=== PATIENT | female | born 1970 | race African-American/Black ===

== ENCOUNTER → 2018-07-02 16:38 | Outpatient (CLI) | payer OTHER, SELFPAY | DX: Z23 Encounter for immunization (principal) | CPT/HCPCS: 90471; 90682 ==

== ENCOUNTER → 2019-01-27 07:29 | Outpatient (CLI) | payer OTHER, SELFPAY ==
--- NOTE | 2019-01-27 | DI.MG.S_ITS ---
BILATERAL DIGITAL SCREENING MAMMOGRAM 3D/2D WITH CAD: 01/27/2019 CLINICAL: Routine screening. Comparison is made to exams dated: 01/24/2018 mammogram, 01/23/2017 mammogram, and 01/04/2016 mammogram - [facility]. There are scattered fibroglandular elements in both breasts. Current study was also evaluated with a Computer Aided Detection (CAD) system. No significant masses, calcifications, or other findings are seen in either breast. There has been no significant interval change. IMPRESSION: NEGATIVE There is no mammographic evidence of malignancy. A 1 year screening mammogram is recommended. This exam was interpreted at Station ID: [id number]. NOTE: For mammograms, a report in lay terms will be sent to the patient. Approximately 15% of breast malignancies will not be visualized mammographically. In the management of a palpable breast mass, a negative mammogram must not discourage biopsy of a clinically suspicious lesion. Electronically Signed By: Rito sheth/noemi:01/27/2019 08:54:34 letter sent: Normal Exam ACR BI-RADS Category 1: Negative 3341F
== END ==
PROVIDERS: PCP Family Medicine; Visit Provider Family Medicine
DX: Z12.31 Encounter for screening mammogram for malignant neoplasm of breast (principal)
CPT/HCPCS: 77063; 77067

== ENCOUNTER → 2019-02-18 06:46 | Outpatient (CLI) | payer OTHER, SELFPAY ==
[2019-02-18 09:05] LABS: Add Manual Diff / Slide Review NO; Basophils Absolute Auto 0 /uL (0-100); Basophils Percent Auto 0.3 % (0-2); Eosinophils Absolute Auto 100 /uL (0-450); Eosinophils Percent Auto 1.6 % (2-4); Hematocrit 41.9 % (36-46); Hemoglobin 13.9 g/dL (12.0-16.0); Lymphocytes Absolute Auto 1900 /uL (1100-4500); Lymphocytes Percent Auto 26.5 % (25-40); Mean Corpuscular HGB Conc 33.2 % (30-36); Mean Corpuscular Hemoglobin 29.9 PG (26-34); Monocytes Absolute Auto 500 /uL (0-900); Monocytes Percent Auto 7.1 % (3-14); Neutrophils Absolute Auto 4700 /uL (1500-7000); Neutrophils Percent Auto 64.5 % (50-75); Platelet Count 330 X10^3/uL (150-400); Red Blood Cell Count 4.66 X10^6/uL (4.0-5.2); Red Cell Distribution Width 13.3 % (11.6-14.8); White Blood Cell Count 7.3 X10^3/uL (4.5-11.0)
[2019-02-18 09:55] LABS: Alanine Aminotransferase 24 IU/L (9-52); Albumin 4.7 g/dL (3.5-5.0); Albumin Globulin Ratio 1.6 (1.0-2.8); Alkaline Phosphatase 66 U/L (38-126); Aspartate Aminotransferase 33 IU/L (14-36); BUN Creatinine Ratio 25.7 (6-22); Bilirubin Total 0.7 mg/dL (0.2-1.3); Blood Urea Nitrogen 18 mg/dL (7-17); Calcium 9.2 mg/dL (8.4-10.2); Carbon Dioxide 29 mmol/L (22-32); Chloride 97 mmol/L (98-107); Cholesterol 202 mg/dL (140-199); Estimated Glomerular Filt Rate > 60.0 mL/min (>60); Globulin 2.9 g/dL (1.7-4.1); Glucose 84 mg/dL (70-100); HDL Cholesterol 87 mg/dL (40-60); HEMOLYSIS < 15 (0-50); LDL Cholesterol Calculated 98 mg/dL (<100); Potassium 4.1 mmol/L (3.4-5.1); Sodium 136 mmol/L (137-145); Total Protein 7.6 g/dL (6.3-8.2); Triglycerides 83 mg/dL (35-150)
== END ==
PROVIDERS: PCP Family Medicine; Visit Provider Family Medicine
DX: E03.9 Hypothyroidism, unspecified (principal); I10 Essential (primary) hypertension
CPT/HCPCS: 36415; 80053; 80061; 84443; 85025

== ENCOUNTER 2019-03-10 08:20 | Emergency (ER) | payer OTHER, SELFPAY ==
[2019-03-10 08:28] VITALS: BP 121/58; PULSE 62; RESP 15; TEMP 36.8; O2SAT 98; BMI 27.4
[2019-03-10] MEDS: KETOROLAC 60 MG/2 ML VIAL IM (08:57)
--- NOTE | 2019-03-10 09:04 | ED_ITS ---
HPI - Skin/Abscess/Foreign Bdy General Chief complaint: Skin/Abscess/Foreign Body Stated complaint: states painful abcess in labia area Time Seen by Provider: 03/10/19 08:41 Source: patient and family () Mode of arrival: ambulatory Limitations: no limitations History of Present Illness HPI narrative: This is a 49-year-old female comes to the emergency department with complaint of pain and swelling on the left labia. Patient states 2 days ago she noticed a small sit while she was in the shower. She noticed there was like a little white head. She broke open and it drained a very small amount of bloody pus-like material. Patient states that it does seem a little bit smaller but is still hard and tender. Patient has not had any fevers, no nausea, no vomiting no GI or urinary symptoms. No abdominal pain. She has not had any symptoms like this in the past. She had a pelvic exam on the nd or 5 days ago and they did see a protrusion from her cervix which they suspect is a cervical polyp but she has follow-up with OBGYN. Related Data Home Medications Medication Instructions Recorded Confirmed MULTIVITAMIN/MINERALS (Thera M 1 tab PO QDAY #0 07/15/10 03/03/19 Plus Tablet) [CALCIUM] 2 PO QDAY #0 07/15/10 03/03/19 [VITAMIN B COMPLEX] 1 PO QDAY #0 07/15/10 03/03/19 acetaminophen [Tylenol Extra 500 mg PO Q4HP #0 12/13/11 03/03/19 Strength] Previous Rx's Medication Instructions Recorded estradiol 0.05 mg/24 hr weekly 0.05 mg TOPICAL Q7D@0900 #4 patch 07/23/18 transdermal patch bupropion HCl SR 200 mg tablet,12 200 mg PO BID #180 tab 01/15/19 hr sustained-release clonidine HCl 0.1 mg tablet 0.15 mg PO BID #90 tab 01/15/19 levothyroxine [Levoxyl] 0.075 mg PO Q DAY #90 tab 02/14/19 lisinopril 5 mg tablet 5 mg PO DAILY #30 tab 02/14/19 amoxicillin-pot clavulanate 1 tab PO Q12H #14 tab 03/10/19 [Augmentin] clindamycin HCl 300 mg PO QID 7 Days #28 cap 03/10/19 Allergies Allergy/AdvReac Type Severity Reaction Status Date / Time egg [EGG] Allergy Mild HIVES/WHITE Verified 03/10/19 08:57 ONLY NSAIDS (Non-Steroidal Allergy Mild Nausea Verified 03/10/19 08:57 Anti-Inflamma [NSAIDS (NON-STEROIDAL ANTI-INFLAMMA] oxycodone [OXYCODONE] Allergy Mild DECREASE Verified 03/10/19 08:57 HR AND DECREASE BP sulfamethoxazole Allergy Mild LIP Verified 03/10/19 08:57 [SULFAMETHOXAZOLE] SWELLING, FACIAL RASH, AND DERMATITIS tetracycline [TETRACYCLINE] Allergy Mild SEVERE Verified 03/10/19 08:57 SKIN SWELLING trimethoprim [TRIMETHOPRIM] Allergy Mild FACIAL Verified 03/10/19 08:57 RASH, LIP SWELLING, AND DERMATITIS Review of Systems Review of Systems ROS Unobtainable: All systems reviewed & are unremarkable except as noted in HPI and below Constitutional Denies chills and Denies fever(s) Gastrointestinal Gastrointestinal: Denies abdominal pain, Denies change in bowel habits, Denies diarrhea, Denies nausea and Denies vomiting Genitourinary Reports as per HPI, Denies abnormal vaginal bleeding, Denies hematuria, Denies urinary frequency, Reports genital lesions (Spot on left labia, drained a small amount of pus.), Denies dysuria, Denies pelvic pain, Denies flank pain, Denies urinary incontinence, Denies urinary urgency, Denies vaginal discharge and Denies vaginal odor Integumentary/Breasts Reports as per HPI [facility] Medical History Hypothyroidism (acquired) (Chronic) Asthma (Chronic) Depression (Chronic ~2012) Fatigue (Chronic ~2012) Mood swings (Chronic ~2012) Acne (Resolved) Hyperlipidemia (Resolved) Hypertension (Resolved) Impaired glucose tolerance (Resolved) (vaginal after ) (Resolved) Surgical History S/P gastric bypass (Resolved 12/22/09) History of section (Resolved 1990) History of hysterectomy (Resolved 12/15/11) History of laparoscopic cholecystectomy (Resolved 1996) History of myomectomy (Resolved 01/23/06) History of myomectomy (Resolved 07/20/10) History of right breast biopsy (Resolved 1989) Family History (Updated 06/13/18 @ 10:08 by Kerrie Hopkins) Father Diabetes mellitus Brain aneurysm [place] (myocardial infarction) Mother Asthma Obesity Grandfather Hypertension Hx of CABG Daughter Asthma Hayfever Daughter Asthma Hayfever Social History marital status: number of children: 2 household members: spouse and children lives independently: Yes caregiver/support person: No housing: house occupational status: employed seatbelt use: always Smoking Status: Never smoker alcohol intake: current substance use type: does not use Family History Father Diabetes mellitus Brain aneurysm [place] (myocardial infarction) Mother Asthma Obesity Grandfather Hypertension Hx of CABG Daughter Asthma Hayfever Daughter Asthma Hayfever Social History marital status: number of children: 2 household members: spouse and children lives independently: Yes caregiver/support person: No housing: house occupational status: employed seatbelt use: always Smoking Status: Never smoker alcohol intake: current substance use type: does not use Exam Narrative Exam Narrative: GENERAL: Alert and oriented x three, well-nourished, well- appearing female in mild distress. HEENT: Head normocephalic, atraumatic, EOMI, pupils reactive, face symmetric, moist mucous membranes NECK: Supple, full range of motion ABDOMEN: Soft, nontender. Normoactive bowel sounds all 4 quadrants. No guarding or rebound, rigidity, no mass : No CVA tenderness. Female: external vaginal exam shows swelling of the left labia, there is some induration in the lower half, the area slightly tender to touch. There is very small area that has erythema, and there is a small open spot with scant purulent drainage, no vaginal bleeding, no adnexal tenderness/mass. EXTREMITIES: Normal range of motion, no clubbing or edema. Neurovascularly intact NEUROLOGICAL: Cranial nerves II through XII grossly intact. Moving all extremities SKIN: Warm, dry, no petechiae, no rashes or lesions. Initial Vital Signs Initial Vital Signs: Vital Signs Temperature 98.2 F 03/10/19 08:28 Pulse Rate 62 03/10/19 08:28 Respiratory Rate 15 03/10/19 08:28 Blood Pressure 121/58 L 03/10/19 08:28 Pulse Oximetry 98 03/10/19 08:28 Procedures Abscess I/D Site: bartholin's gland (Left labia) Local Anesthetic: lidocaine 1% Amount of anesthesia used (mL): 2 Technique: incised with #11 blade Amount of fluid expressed (mL): 1 Irrigation: Yes Packing used?: none Course Orders Ordered: ED Orders 03/10/19 09:32 Wound Culture and Gram Stain Stat Discontinued Medications Ketorolac Tromethamine (Toradol) 60 mg IM NOW ONE Stop: 03/10/19 08:51 Last Admin: 03/10/19 08:57 Dose: 60 mg Vital Signs - 8 hr 03/10/19 08:28 03/10/19 09:45 Temperature 98.2 F Pulse Rate 62 70 Respiratory Rate 15 14 Blood Pressure 121/58 L Blood Pressure [Left Arm] 106/70 Pulse Oximetry 98 98 MDM - Skin/Abscess/Foreign Bdy MDM Narrative Medical decision making narrative: Patient appears to likely have a gland gland cyst does become infected although potentially could be a small abscess from another source. Patient does have a small wound but is not actively draining and does not easily drain any fluid. As quite small. Discussed with patient I would recommend an I and D just to make sure that there is a throat for any further purulence fluid to drain. It also treat patient with antibiotics. She is comfortable with this plan. Plan to do a dose of Toradol, she states that her allergy to NSAIDs that she feels a little nauseated she is fine with that. She has an ice pack in place. Verbal consent was given. Patient tolerated procedure well. She has a very small amount of purulent fluid out. I opened the area draining with a X incision. Culture was obtained and sent. Discharge Plan Departure Patient Disposition: Home Clinical Impression: Abscess of left genital labia Discharge Date/Time: 03/10/19 09:48 Interventions: ED Discharge Assessment Last Done: 03/10/19 09:47 Instructions: Vulvar Abscess Activity Restrictions/Additional Instructions: Follow-up in the next 3-5 days for recheck either with primary care or java software architect. Call for an appointment. Take antibiotics until they are completely gone. Use warm compresses to the affected area or warm baths 4 times daily. You may take ibuprofen up to 800 mg every 8 hours as tolerated, you may also take Tylenol up to a 1000 mg every 8 hours. Return to the emergency department for fevers greater than 100.4 F, worsening swelling, worsening pain, increasing amounts of purulent drainage, persistent vomiting, abdominal pain or other new or concerning symptoms. Prescriptions: New clindamycin HCl 300 mg capsule 300 mg PO QID 7 Days Qty: 28 RF: 0 amoxicillin-pot clavulanate [Augmentin] 875-125 mg tablet 1 tab PO Q12H Qty: 14 RF: 0 No Action MULTIVITAMIN/MINERALS (Thera M Plus Tablet) 1 tab PO QDAY Qty: 0 RF: 0 [VITAMIN B COMPLEX] 1 PO QDAY Qty: 0 RF: 0 [CALCIUM] 2 PO QDAY Qty: 0 RF: 0 acetaminophen [Tylenol Extra Strength] 500 MG tablet 500 mg PO Q4HP Qty: 0 RF: 0 estradiol [Climara] 0.05 mg/24 hr patch weekly 0.05 mg Topical Q7D@0900 Qty: 4 RF: 11 bupropion HCl 200 mg tablet sustained-release 12 hr 200 mg PO BID Qty: 180 RF: 0 clonidine HCl 0.1 mg tablet 0.15 mg PO BID Qty: 90 RF: 1 levothyroxine [Levoxyl] 75 mcg tablet 0.075 mg PO Q DAY Qty: 90 RF: 2 lisinopril 5 mg tablet 5 mg PO DAILY Qty: 30 RF: 2 Referrals: Sudha Gibson MD [Primary Care Provider] -
[2019-03-10 09:45] VITALS: BP 106/70; PULSE 70; RESP 14; O2SAT 98
== END 2019-03-10 09:48 | disposition home or self-care (01) ==
PROVIDERS: Emergency Provider Emergency Medicine; PCP Family Medicine
DX: N76.4 Abscess of vulva (principal)
CPT/HCPCS: 56405; 87070; 87147; 87205; 96372; 99282; 99283; J1885

== ENCOUNTER 2019-05-29 06:46 | Day surgery (SDC) | payer OTHER, SELFPAY ==
[2019-05-13 12:22] VITALS: BMI 27.6
[2019-05-29] VITALS (7 sets, daily range): BP systolic 112–130; BP diastolic 57–76; PULSE 59–79; RESP 15–19; TEMP 36.1–36.6; O2SAT 97–100; BMI 27.6
--- NOTE | 2019-05-29 | PATH_ITS ---
[facility] Accession Number: [id number] . 01 Material submitted: . cervix - CERVICAL MASS . 02 Diagnosis: Cervical Mass, Not Otherwise Specified: Fibroepithelial tissue fragments (1.4 and 2.4 cm in greatest dimension). Tissue fragments demonstrate prominent vessels, suggestive of endocervical polyp, if clinical and imaging findings are concordant. Negative for glandular dysplasia and malignancy. I06/02/2019 . 02 Electronically signed: . Lexus Sales MD, Pathologist NPI- [id number] . 01 Gross description: . Received in formalin, labeled cervical mass, are two pieces of daniel-pink rubbery partially membranous tissue (piece #1-1.4 x 1.0 x 0.5 cm; piece #2-2.4 x 1.2 x 0.5 cm). The apparent resection margins are inked blue. Piece #1 is serially sectioned and entirely submitted in cassette A1, and piece #2 is trisected and entirely submitted in cassette A2. ([id number]) /MRV . 02 Pathologist provided ICD-10: N84.1 . 02 CPT . 255885 Specimen Comment: A duplicate report has been generated due to demographic updates. Performed at: 01 [facility] [address] [facility], [place], [place] [id number] MD Americo Underwood MD Phone: [phone] Performed at: 02 [facility] [address] [place], [place] [id number] MD Kaleigh Mendez MD Phone: [phone]
--- NOTE | 2019-05-29 06:53 | PM.HP.1 ---
History of Present Illness Date Patient Seen: 05/29/19 Time Patient Seen: 06:54 Chief complaint: 80362 Narrative: Patient is a 49-year-old 2 para 2 with a cervical mass She is status post laparoscopic supracervical hysterectomy Patient History Family & Social History Social History: household members spouse,children lives independently Yes caregiver/support person No Tobacco & Substance use: Smoking Status Never smoker alcohol intake current Substance Use Type does not use Meds Home Medications Medication Instructions Recorded Confirmed Type MULTIVITAMIN/MINERALS (Thera M 1 tab PO QDAY #0 07/15/10 05/13/19 History Plus Tablet) [VITAMIN B COMPLEX] 1 tab PO QDAY #0 07/15/10 05/13/19 History acetaminophen [Tylenol Extra 500 mg PO Q4HP #0 12/13/11 05/13/19 History Strength] levothyroxine [Levoxyl] 0.075 mg PO Q DAY #90 tab 02/14/19 05/13/19 Rx estradiol 0.05 mg/24 hr weekly 0.05 mg TOPICAL .biweekly #8 patch 03/24/19 05/13/19 Rx transdermal patch clonidine HCl 0.1 mg tablet 0.15 mg PO BID #90 tab 04/10/19 05/13/19 Rx bupropion HCl SR 200 mg tablet,12 200 mg PO BID #180 tab 05/09/19 05/13/19 Rx hr sustained-release lisinopril 5 mg tablet 5 mg PO DAILY #30 tab 05/09/19 05/13/19 Rx Allergies Allergy/AdvReac Type Severity Reaction Status Date / Time egg [EGG] Allergy Mild HIVES/WHITE Verified 04/22/19 11:02 ONLY NSAIDS (Non-Steroidal Allergy Mild Nausea Verified 04/22/19 11:02 Anti-Inflamma [NSAIDS (NON-STEROIDAL ANTI-INFLAMMA] oxycodone [OXYCODONE] Allergy Mild DECREASE Verified 04/22/19 11:02 HR AND DECREASE BP sulfamethoxazole Allergy Mild LIP Verified 04/22/19 11:02 [SULFAMETHOXAZOLE] SWELLING, FACIAL RASH, AND DERMATITIS tetracycline [TETRACYCLINE] Allergy Mild SEVERE Verified 04/22/19 11:02 SKIN SWELLING trimethoprim [TRIMETHOPRIM] Allergy Mild FACIAL Verified 04/22/19 11:02 RASH, LIP SWELLING, AND DERMATITIS Exam Vital Signs (past 8 hours): HEENT: No thyromegaly, no anterior cervical or supraclavicular lymphadenopathy. Lungs:Clear to auscultation bilaterally, no wheezes. Cardiovascular: Regular rate and rhythm, no murmurs, rubs, or gallops. Abdomen: Well-healed laparoscopy scars. No hepatosplenomegaly. No masses palpable. External genitalia: Normal Vagina: Normal Cervix: 2-1/2 by 3 cm mass protruding from the cervical os Bimanual exam: No masses or tenderness Rectal: No masses. Assessment & Plan Assessment & Plan narrative: Assessment: 49-year-old 2 para 2 with cervical mass Plan: Resection of cervical mass The risks, benefits, and alternatives to the procedure were explained to the patient. The risks including bleeding and infection. She understands these risks and agrees to proceed. A full par Q was held and consent form was signed Time Spent With Patient Time with patient: less than 15 minutes
--- NOTE | 2019-05-29 06:56 | PM.PREOP ---
Pre-operative Note Interval Note History & Physical reviewed/Exam performed by Physician: Yes Changes to H&P: No
--- NOTE | 2019-05-29 07:28 | SUR.OPER ---
Lithotomy on padded OR bed, head on pillow, arms secured on padded arm boards at <90 degrees abduction. Legs secured in padded yellow fins stirrups.
[2019-05-29] MEDS: LACTATED RINGERS 1,000 ML 42 ML IV (07:37)
--- NOTE | 2019-06-12 12:37 | PM.GYNOP.1 ---
Operative Date/Time/Diagnoses Date of procedure: 05/29/19 Time of procedure: 09:00 Pre-op diagnosis: Cervical mass Post-op diagnosis: same Procedure & Clinicians Procedure: Procedures Operation Date: 05/29/19 07:45 Actual Procedures Side Surgeon p Hysteroscopic assisted resection of cervical mass Not Applicable Kortney Lewis MD Indications: Cervical mass Surgeon: Kortney Lewis Anesthesia Type: General (LMA) Operative Notes Findings: 3 cm by 2-1/2 cm mass originating from the endocervical canal Closure Type: not applicable Specimen(s): other (Cervical mass) Estimated blood loss (mL): 5 Blood products transfused: none Procedure in detail: After informed consent was obtained, the patient was taken to the operating room where she was placed in the dorsal supine position. After adequate LMA general seizure was achieved, she was placed in the dorsal lithotomy position, and prepped and draped in the usual sterile fashion. A time-out was performed. A bivalve speculum was placed into the vagina and the anterior lip of the cervix grasped with a single-tooth tenaculum. The hysteroscope passed into the endocervical canal. The cervix was approximately 3.5 cm long. The mass was originating from the left sidewall of the cervix. Using a Bovie, the mass was excised down to the base. The base of the mass was cauterized for hemostasis. The instruments were removed from the cervix. The single-tooth tenaculum was removed from the anterior lip of the cervix. The bivalve speculum was removed from the vagina. Sponge, lap, and instrument counts were correct x2. The patient tolerated the procedure well, and was taken to PACU in stable condition. Complications: none Post-operative Condition: stable Disposition: PACU Plan for aftercare: Home after recovery
== END 2019-05-29 09:19 | disposition home or self-care (01) ==
PROVIDERS: PCP Family Medicine; Visit Provider Obstetrics & Gynecology
PROC: 0UDB8ZZ Extraction of Endometrium, Via Natural or Artificial Opening Endoscopic (ICD-10-PCS; CPT 58558; principal; 2019-05-29 07:45)
DX: N88.8 Other specified noninflammatory disorders of cervix uteri (principal); I10 Essential (primary) hypertension
CPT/HCPCS: 58558; J1100; J2250; J2405; J2704; J3010

== ENCOUNTER → 2019-07-08 14:09 | Outpatient (CLI) | payer OTHER, SELFPAY | PROVIDERS: PCP Family Medicine | DX: Z23 Encounter for immunization (principal) | CPT/HCPCS: 90471; 90682 ==

== ENCOUNTER → 2019-07-15 12:09 | Outpatient (CLI) | payer OTHER, SELFPAY ==
[2019-07-15 13:03] LABS: Influenza A and B by PCR Rapid Negative (Negative)
== END ==
PROVIDERS: PCP Family Medicine; Visit Provider Nurse Practitioner Family
DX: R52 Pain, unspecified (principal)
CPT/HCPCS: 87400; 87502

== ENCOUNTER → 2020-03-23 11:04 | Outpatient (CLI) | payer OTHER, SELFPAY ==
--- NOTE | 2020-03-23 | DI.MG.S_ITS ---
BILATERAL DIGITAL SCREENING MAMMOGRAM 3D/2D WITH CAD: 03/23/2020 CLINICAL: Routine screening. Family history of breast cancer. Comparison is made to exams dated: 01/27/2019 mammogram, 01/24/2018 mammogram, and 01/23/2017 mammogram - [facility]. There are scattered fibroglandular elements in both breasts. Current study was also evaluated with a Computer Aided Detection (CAD) system. No significant masses, calcifications, or other findings are seen in either breast. There has been no significant interval change. IMPRESSION: NEGATIVE There is no mammographic evidence of malignancy. A 1 year screening mammogram is recommended. This exam was interpreted at Station ID: [id number]. NOTE: For mammograms, a report in lay terms will be sent to the patient. Approximately 15% of breast malignancies will not be visualized mammographically. In the management of a palpable breast mass, a negative mammogram must not discourage biopsy of a clinically suspicious lesion. Electronically Signed By: Rito robbins/noemi:03/23/2020 17:18:50 letter sent: Normal Exam ACR BI-RADS Category 1: Negative 3341F
== END ==
PROVIDERS: PCP Family Medicine; Referring Provider Family Medicine; Visit Provider Family Medicine
DX: Z12.31 Encounter for screening mammogram for malignant neoplasm of breast (principal); Z80.3 Family history of malignant neoplasm of breast
CPT/HCPCS: 77063; 77067

== ENCOUNTER → 2020-04-14 07:24 | Outpatient (CLI) | payer OTHER, SELFPAY ==
[2020-04-14 08:27] LABS: Add Manual Diff / Slide Review NO; Basophils Absolute Auto 0 /uL (0-100); Basophils Percent Auto 0.5 % (0-2); Eosinophils Absolute Auto 100 /uL (0-450); Eosinophils Percent Auto 1.8 % (2-4); Hematocrit 38.7 % (36-46); Lymphocytes Absolute Auto 2100 /uL (1100-4500); Lymphocytes Percent Auto 29.4 % (25-40); Mean Corpuscular HGB Conc 33.7 % (30-36); Mean Corpuscular Hemoglobin 30.3 PG (26-34); Mean Corpuscular Volume 89.9 fL (80-100); Monocytes Absolute Auto 600 /uL (0-900); Neutrophils Absolute Auto 4300 /uL (1500-7000); Neutrophils Percent Auto 59.3 % (50-75); Platelet Count 305 X10^3/uL (150-400); Red Cell Distribution Width 13.4 % (11.6-14.8); White Blood Cell Count 7.2 X10^3/uL (4.5-11.0)
[2020-04-14 08:47] LABS: Alanine Aminotransferase 22 IU/L (<35); Albumin 4.5 g/dL (3.5-5.0); Albumin Globulin Ratio 1.6 (1.0-2.8); Alkaline Phosphatase 74 U/L (38-126); Aspartate Aminotransferase 34 IU/L (14-36); BUN Creatinine Ratio 20.6 (6-22); Bilirubin Total 0.9 mg/dL (0.2-1.3); Blood Urea Nitrogen 14 mg/dL (7-17); Calcium 9.5 mg/dL (8.4-10.2); Carbon Dioxide 30 mmol/L (22-32); Chloride 101 mmol/L (98-107); Cholesterol 205 mg/dL (140-199); Estimated Glomerular Filt Rate > 60.0 mL/min (>60); Globulin 2.8 g/dL (1.7-4.1); Glucose 90 mg/dL (70-100); HDL Cholesterol 97 mg/dL (40-60); HEMOLYSIS < 15 (0-50); LDL Cholesterol Calculated 92 mg/dL (<100); Potassium 4.6 mmol/L (3.4-5.1); Sodium 136 mmol/L (137-145); Total Protein 7.3 g/dL (6.3-8.2); Triglycerides 78 mg/dL (35-150)
[2020-04-14 09:18] LABS: Thyroid Stimulating Hormone 1.51 uIU/mL (0.47-4.68)
== END ==
PROVIDERS: PCP Family Medicine; Referring Provider Family Medicine; Visit Provider Family Medicine
DX: E03.9 Hypothyroidism, unspecified (principal); I10 Essential (primary) hypertension; Z98.84 Bariatric surgery status
CPT/HCPCS: 36415; 80053; 80061; 84443; 85025

== ENCOUNTER 2020-08-17 00:24 | Emergency (ER) | payer OTHER, SELFPAY ==
[2020-08-17 00:31] VITALS: BP 198/96; PULSE 72; RESP 18; TEMP 36.3; O2SAT 99
--- NOTE | 2020-08-17 00:34 | ED.SKABFB ---
HPI - Skin/Abscess/Foreign Bdy General Chief complaint: Skin/Abscess/Foreign Body Stated complaint: left side of face is swollen Time Seen by Provider: 08/17/20 00:33 Source: patient Mode of arrival: Ambulatory Limitations: no limitations History of Present Illness HPI narrative: Patient is a 50-year-old female here for evaluation of a rash and burning and ear pain on the left side. States that her ear pain started about 3 days ago. The rash started yesterday. No fevers. Did have a sore throat yesterday but none today. She does not have any vision changes. Does not have pain to her left eye but does have some itching around the left eye. No problems swallowing. No problems breathing. Has not tried anything for her symptoms prior to arrival. Related Data Home Medications Medication Instructions Recorded Confirmed MULTIVITAMIN/MINERALS (Thera M 1 tab PO QDAY #0 07/15/10 04/30/20 Plus Tablet) [VITAMIN B COMPLEX] 1 tab PO QDAY #0 07/15/10 04/30/20 acetaminophen [Tylenol Extra 500 mg PO Q4HP #0 12/13/11 04/30/20 Strength] wiypdjloma-BW-dwakbikzepnmw 6.25 cap PO 07/15/19 04/30/20 mg-15 mg-325 mg capsule phenylephrine 5 cap PO 07/15/19 04/30/20 mg-dextromethorphan 10 mg-acetaminophen 325 mg capsule Previous Rx's Medication Instructions Recorded amoxicillin 875 mg-potassium 1 tab PO BID #20 tab 07/15/19 clavulanate 125 mg tablet fluconazole 150 mg tablet 150 mg PO Q3D #2 tab 10/28/19 estradiol 0.05 mg/24 hr semiweekly See Rx Instructions .ROUTE 03/11/20 transdermal patch .COMPLEX #8 each bupropion HCl 200 mg tablet,12 hr See Rx Instructions .ROUTE 05/11/20 sustained-release .COMPLEX #60 tab clonidine HCl 0.1 mg tablet 0.15 mg PO BID #90 tab 07/12/20 levothyroxine 75 mcg tablet See Rx Instructions .ROUTE 08/06/20 .COMPLEX #90 tab lisinopril 5 mg tablet See Rx Instructions .ROUTE 08/06/20 .COMPLEX #90 tab acyclovir 800 mg PO 5XD 10 Days #50 tab 08/17/20 prednisone 60 mg PO DAILY 5 Days #15 tab 08/17/20 valacyclovir 1,000 mg PO TID 10 Days #30 tab 08/17/20 Allergies Allergy/AdvReac Type Severity Reaction Status Date / Time egg [EGG] Allergy Mild HIVES/WHITE Verified 04/30/20 09:12 ONLY NSAIDS (Non-Steroidal Allergy Mild Nausea Verified 04/30/20 09:12 Anti-Inflamma [NSAIDS (NON-STEROIDAL ANTI-INFLAMMA] oxycodone [OXYCODONE] Allergy Mild DECREASE Verified 04/30/20 09:12 HR AND DECREASE BP sulfamethoxazole Allergy Mild LIP Verified 04/30/20 09:12 [SULFAMETHOXAZOLE] SWELLING, FACIAL RASH, AND DERMATITIS tetracycline [TETRACYCLINE] Allergy Mild SEVERE Verified 04/30/20 09:12 SKIN SWELLING trimethoprim [TRIMETHOPRIM] Allergy Mild FACIAL Verified 04/30/20 09:12 RASH, LIP SWELLING, AND DERMATITIS Review of Systems Constitutional Constitutional: Denies chills, Denies fever(s) and Denies headache(s) Eyes Eyes: Denies blurry vision, Denies change in vision, Denies diplopia, Denies eye discharge, Denies dry eyes and Denies eye pain ENT Ears, Nose, Mouth, and Throat: Denies vertigo, Denies dizziness, Reports otalgia, Reports facial pain, Denies headache(s), Denies mouth lesions, Denies nasal obstruction, Denies nose pain, Reports sore throat (Yesterday not today) and Denies throat swelling Cardiovascular Cardiovascular: Denies chest pain and Denies dyspnea Respiratory Respiratory: Denies dyspnea Gastrointestinal Gastrointestinal: Denies abdominal pain, Denies nausea and Denies vomiting Genitourinary Genitourinary: Denies dysuria Genitourinary: Denies dysuria Musculoskeletal Musculoskeletal: Denies arthralgias and Denies myalgias Integumentary/Breasts Skin/Breast: Reports pruritus, Reports lesions, Reports rash and Reports sores Neurologic Neurologic: Denies behavioral changes, Denies confusion, Denies vertigo, Denies dizziness and Denies headache(s) Psychiatric Psychiatric: Denies behavioral changes, Denies confusion and Denies depression Hematologic/Lymphatic Hematologic/Lymphatic: Denies easy bleeding and Denies easy bruising Allergic/Immunologic Allergic/Immunologic: Denies throat swelling Patient History Medical History Acne (Resolved) Asthma (Chronic) Depression (Chronic ~2012) Fatigue (Chronic ~2012) Hyperlipidemia (Resolved) Hypertension (Resolved) Hypothyroidism (acquired) (Chronic) Impaired glucose tolerance (Resolved) Mood swings (Chronic ~2012) (vaginal after ) (Resolved) Surgical History (Updated 06/12/19 @ 09:30 by Meg Thapa MA) History of section (Resolved 1990) History of hysterectomy (Resolved 12/15/11) History of laparoscopic cholecystectomy (Resolved 1996) History of myomectomy (Resolved 01/23/06) History of myomectomy (Resolved 07/20/10) History of right breast biopsy (Resolved 1989) S/P cervical polypectomy (Acute ~05/29/19) S/P gastric bypass (Resolved 12/22/09) Family History Father Diabetes mellitus Brain aneurysm ID (myocardial infarction) Mother Asthma Obesity Grandfather Hypertension Hx of CABG Daughter Asthma Hayfever Daughter Asthma Hayfever Social History marital status: number of children: 2 household members: spouse and children lives independently: Yes caregiver/support person: No housing: house occupational status: employed seatbelt use: always Smoking Status: Never smoker alcohol intake: current substance use type: does not use Smoking Status: Never smoker Substance Use Type: does not use Exam Initial Vital Signs Initial Vital Signs: Vital Signs Temperature 97.3 F L 08/17/20 00:31 Pulse Rate 72 08/17/20 00:31 Respiratory Rate 18 08/17/20 00:31 Blood Pressure 198/96 H 08/17/20 00:31 Pulse Oximetry 99 08/17/20 00:31 Const General: cooperative, comfortable and well developed Limitations: mental status not altered HENMT Head: normal to inspection and normocephalic Ears: TM normal on the right and EAC abnormal erythema on the left, edema on the left and EAC tenderness on the left Nose: external nose normal Face and sinus: other (Lesions) Mouth: oral mucosae normal and lip normal Teeth and gingiva: dentition normal Throat: posterior oropharynx normal Eyes Conjunctivae: conjunctivae normal Sclera: sclerae normal Cornea: corneas normal and fluorescein used Pupils: PERRL EOM: EOM intact bilaterally Resp Effort & Inspection: normal respiratory effort Cardio Rate: regular rate Skin Other: Patient has pointing lesions along the left nasal labial fold and along the upper lip. She also has not along the lateral aspect of the left eye. Also has larger grouped lesions along the hairline just anterior to left ear. Also has red left external auditory canal. No specific vesicles seen. No pustules seen. Minimal surrounding erythema. Neuro General: patient alert and patient awake Cognition: normal cognition Speech: speech normal Extrem General: capillary refill normal Psych Appearance: grossly normal and well kempt Course Orders Ordered: Discontinued Medications Acyclovir (Zovirax) 800 mg PO NOW ONE Stop: 08/17/20 01:28 Fluorescein Sodium (Ful-Naz) 1 mg EYE-BOTH NOW ONE Stop: 08/17/20 00:41 Prednisone (Deltasone) 60 mg PO NOW ONE Stop: 08/17/20 01:12 Valacyclovir HCl (Valtrex) 1,000 mg PO NOW ONE Stop: 08/17/20 01:12 Vital Signs Vital signs: Vital Signs - 8 hr 08/17/20 00:31 Temperature 97.3 F L Pulse Rate 72 Respiratory Rate 18 Blood Pressure 198/96 H Pulse Oximetry 99 MDM - Skin/Abscess/Foreign Bdy MDM Narrative Medical decision making narrative: Patient does have lesions on the left side of her face that are somewhat concerning for zoster despite not having specific vesicles there are some punctate areas that appear to be areas where there were vesicles that have since ruptured. She has a red left external auditory canal. There is minimal swelling in the visualized portion of the tympanic membrane does not appear to have any vesicles on it. Floor seen of the left high does not show any signs of dendrites. There are no lesions specifically on the nose. She has no facial asymmetry. There is some concern for Miryam garcia syndrome that she does not specifically need to try and specifically the facial paralysis. Will treat the patient as if it is zoster. She was given 1st dose of steroids and antivirals here in the ER. Will send home with prescription for the remainder. She is given return precautions. She expressed understanding and agreement. Discharge Plan Departure Patient Disposition: Home Clinical Impression: Shingles Qualifiers: Herpes zoster complications: unspecified herpes zoster complication Qualified Code(s): B02.8 - Zoster with other complications Discharge Date/Time: 08/17/20 01:37 Instructions: DI for Shingles, Recombinant Zoster (Shingles) Vaccine (RZV) Activity Restrictions/Additional Instructions: Take the medications as directed. Recommend you contact your primary provider for follow-up. Return to the emergency department for any new or worsening symptoms Prescriptions: New valacyclovir 1 gram tablet 1,000 mg PO TID 10 Days Qty: 30 RF: 0 prednisone 20 mg tablet 60 mg PO DAILY 5 Days Qty: 15 RF: 0 acyclovir 800 mg tablet 800 mg PO 5XD 10 Days Qty: 50 RF: 0 No Action MULTIVITAMIN/MINERALS (Thera M Plus Tablet) 1 tab PO QDAY Qty: 0 RF: 0 [VITAMIN B COMPLEX] 1 tab PO QDAY Qty: 0 RF: 0 acetaminophen [Tylenol Extra Strength] 500 MG tablet 500 mg PO Q4HP Qty: 0 RF: 0 fluconazole 150 mg tablet 150 mg PO Q3D Qty: 2 RF: 0 estradiol [Katrin] 0.05 mg/24 hr patch semiweekly See Rx Instructions .ROUTE .COMPLEX Qty: 8 RF: 10 bupropion HCl 200 mg tablet sustained-release 12 hr See Rx Instructions .ROUTE .COMPLEX Qty: 60 RF: 2 clonidine HCl 0.1 mg tablet 0.15 mg PO BID Qty: 90 RF: 1 levothyroxine 75 mcg tablet See Rx Instructions .ROUTE .COMPLEX Qty: 90 RF: 0 lisinopril 5 mg tablet See Rx Instructions .ROUTE .COMPLEX Qty: 90 RF: 0 Vicks DayQuil Cold-Flu Relief 5-10-325 mg capsule PO RF: 0 Vicks NyQuil Cold/Flu Liquicap 6.25-15-325 mg capsule PO RF: 0 amoxicillin-pot clavulanate 875-125 mg tablet 1 tab PO BID Qty: 20 RF: 0 Referrals: Sudha Gibson MD [Primary Care Provider] - Stand Alone Forms: Work Release Note
[2020-08-17] MEDS: FLUORESCEIN 1 MG STRIP EYE-BOTH (01:32)
[2020-08-17] MEDS: predniSONE 20 MG TABLET 60 MG PO (01:32)
[2020-08-17] MEDS: ACYCLOVIR 200 MG CAPSULE 800 MG PO (01:32)
[2020-08-17 01:37] VITALS: BP 185/88; PULSE 60; RESP 15; O2SAT 99
== END 2020-08-17 01:37 | disposition home or self-care (01) ==
PROVIDERS: Emergency Provider Emergency Medicine; PCP Family Medicine
DX: B02.8 Zoster with other complications (principal); H92.02 Otalgia, left ear
CPT/HCPCS: 99283

== ENCOUNTER → 2020-09-07 13:15 | Outpatient (CLI) | payer OTHER, SELFPAY | PROVIDERS: PCP Family Medicine; Referring Provider Internal Medicine; Visit Provider Internal Medicine | DX: Z23 Encounter for immunization (principal) | CPT/HCPCS: 90471; 90682 ==

== ENCOUNTER → 2020-10-29 11:56 | Outpatient (CLI) | payer OTHER, SELFPAY ==
[2020-10-29] MEDS: COVID-19 VACC(MODERNA-1)/PF 100 MCG/0.5 ML VIAL IM (11:59)
== END ==
PROVIDERS: PCP Family Medicine; Visit Provider Internal Medicine
DX: Z23 Encounter for immunization (principal)
CPT/HCPCS: 0011A; 91301

== ENCOUNTER → 2020-11-26 11:57 | Outpatient (CLI) | payer OTHER, SELFPAY ==
[2020-11-26] MEDS: COVID-19 VACC #2, MRNA(MOD) 100 MCG/0.5 ML VIAL IM (11:59)
== END ==
PROVIDERS: PCP Family Medicine; Visit Provider Internal Medicine
DX: Z23 Encounter for immunization (principal)
CPT/HCPCS: 0012A; 91301

== ENCOUNTER 2021-03-11 17:16 | Observation (INO) | payer OTHER, SELFPAY ==
[2021-03-11] VITALS (16 sets, daily range): BP systolic 141–200; BP diastolic 73–105; PULSE 58–74; RESP 16–18; TEMP 36.1–36.7; O2SAT 96–100; BMI 28.3
--- NOTE | 2021-03-11 17:24 | DI.CT.S_ITS ---
PROCEDURE: CT HEAD/BRAIN WO CON INDICATIONS: visual disturbance, headache TECHNIQUE: Noncontrast 4.5 mm thick angled axial sections acquired from the foramen magnum to the vertex, with coronal and sagittal reformats. For radiation dose reduction, the following was used: automated exposure control, adjustment of mA and/or kV according to patient size. COMPARISON: None. FINDINGS: Image quality: Excellent. CSF spaces: Basal cisterns are patent. No extra-axial fluid collections. Ventricles are normal in size and shape. Brain: No midline shift. No intracranial masses or hemorrhage. Pham-white matter interface is normal. Skull and face: Calvarium and visualized facial bones are intact, without suspicious lesions. Sinuses: There is a mucous retention cyst seen along the posterior aspect of the left maxillary sinus, as on series 3, image 2. Visualized sinuses and mastoids are otherwise clear. IMPRESSION: No imaging explanation is found for this patient's presenting symptoms. If it would be helpful for clinical management decision making, please consider a dedicated brain MRI (without and with contrast) for further evaluation (assuming that there is no contraindication). Dictated by: Damaso Wakefield M.D. on 03/11/2021 at 17:12 Approved by: Damaso Wakefield M.D. on 03/11/2021 at 17:14
[2021-03-11 17:48] LABS: Add Manual Diff / Slide Review NO; Basophils Absolute Auto 0 /uL (0-100); Basophils Percent Auto 0.2 % (0-2); Eosinophils Absolute Auto 100 /uL (0-450); Eosinophils Percent Auto 1.2 % (2-4); Hematocrit 38.3 % (36-46); Hemoglobin 12.4 g/dL (12.0-16.0); Lymphocytes Absolute Auto 2900 /uL (1100-4500); Lymphocytes Percent Auto 26.4 % (25-40); Mean Corpuscular HGB Conc 32.5 % (30-36); Mean Corpuscular Hemoglobin 28.4 PG (26-34); Mean Corpuscular Volume 87.5 fL (80-100); Monocytes Absolute Auto 800 /uL (0-900); Monocytes Percent Auto 7.8 % (3-14); Neutrophils Absolute Auto 7000 /uL (1500-7000); Neutrophils Percent Auto 64.4 % (50-75); Platelet Count 375 X10^3/uL (150-400); Red Blood Cell Count 4.37 X10^6/uL (4.0-5.2); Red Cell Distribution Width 13.9 % (11.6-14.8); White Blood Cell Count 10.9 X10^3/uL (4.5-11.0)
[2021-03-11 17:56] LABS: HEMOLYSIS < 15 (0-50)
[2021-03-11 17:58] LABS: INR 1.2 (0.9-1.3); Prothrombin Time 13.1 SECONDS (10.1-12.7)
[2021-03-11 18:00] LABS: PTT Partial Thromboplastin Tim 33 SECONDS (26.4-36.2)
[2021-03-11 18:02] LABS: Alanine Aminotransferase 27 IU/L (<35); Albumin 4.7 g/dL (3.5-5.0); Albumin Globulin Ratio 1.5 (1.0-2.8); Alkaline Phosphatase 96 U/L (38-126); Aspartate Aminotransferase 48 IU/L (14-36); BUN Creatinine Ratio 19.3 (6-22); Bilirubin Total 0.4 mg/dL (0.2-1.3); Blood Urea Nitrogen 16 mg/dL (7-17); Calcium 9.1 mg/dL (8.4-10.2); Carbon Dioxide 27 mmol/L (22-32); Chloride 102 mmol/L (98-107); Creatine Kinase 384 U/L (30-135); Estimated Glomerular Filt Rate > 60.0 mL/min (>60); Globulin 3.1 g/dL (1.7-4.1); Glucose 91 mg/dL (70-100); Sodium 137 mmol/L (137-145); Total Protein 7.8 g/dL (6.3-8.2)
[2021-03-11] MEDS: SODIUM CHLORIDE 0.9% 1,000 ML 150 ML IV (18:02)
[2021-03-11 18:05] LABS: Ethanol (ETOH) < 10 mg/dL
[2021-03-11 18:15] LABS: Troponin I < 0.012 ng/mL (0.01-0.034)
[2021-03-11 18:18] LABS: CKMB % Relative Index 0.9 % (1.5-5.0); Creatine Kinase MB 3.37 ng/mL (<2.37)
--- NOTE | 2021-03-11 19:12 | ED.NEUROSD ---
HPI - Neuro Symptoms/Deficit General Chief Complaint: Neuro Symptoms/Deficit Stated Complaint: Poss Stroke Time Seen by Provider: 03/11/21 17:29 Source: patient Mode of arrival: Ambulatory Limitations: no limitations History of Present Illness HPI Narrative: Patient is a 51-year-old female with history of alcoholism and hypertension presents with right eye visual disturbance. She says approximately 515pm this evening she had decreased right peripheral vision loss, although she described to nurse as visual disturbance from top down. She says she could not see partially out of her right eye. She has a continued left-sided headache. She admits that she drank too much last night and passed out however she was able to get up this morning and go to her work shift. She denies any numbness tingling or weakness. She has no nausea or vomiting. She says that she often gets left-sided headaches after a recent case of shingles. Her visual disturbance has now improved. She states visual disturbance lasted for about an hour. She took 2 aspirin prior to arrival. History of same: No Severity: mild Quality: improving Context: sudden onset On Anticoagulants: Yes (ASA 81 mg daily) Treatments Prior to Arrival: Aspirin Related Data Home Medications Medication Instructions Recorded Confirmed aspirin 81 mg PO DAILY 03/11/21 03/11/21 bupropion HCl 200 mg PO BID 03/11/21 03/11/21 clonidine HCl 0.15 mg PO BID 03/11/21 03/11/21 gabapentin 100 mg PO BEDTIME PRN 03/11/21 03/11/21 levothyroxine 75 mcg PO DAILY 03/11/21 03/11/21 lisinopril 5 mg PO DAILY 03/11/21 03/11/21 Previous Rx's Medication Instructions Recorded estradiol 0.05 mg/24 hr semiweekly See Rx Instructions .ROUTE 02/07/21 transdermal patch .COMPLEX #8 ea Allergies Allergy/AdvReac Type Severity Reaction Status Date / Time hydrocodone Allergy Intermediate facial Verified 03/11/21 17:23 swelling egg [EGG] Allergy Mild HIVES/WHITE Verified 03/11/21 17:23 ONLY NSAIDS (Non-Steroidal Allergy Mild Nausea Verified 03/11/21 17:23 Anti-Inflamma [NSAIDS (NON-STEROIDAL ANTI-INFLAMMA] oxycodone [OXYCODONE] Allergy Mild DECREASE Verified 03/11/21 17:23 HR AND DECREASE BP sulfamethoxazole Allergy Mild LIP Verified 03/11/21 17:23 [SULFAMETHOXAZOLE] SWELLING, FACIAL RASH, AND DERMATITIS tetracycline [TETRACYCLINE] Allergy Mild SEVERE Verified 03/11/21 17:23 SKIN SWELLING trimethoprim [TRIMETHOPRIM] Allergy Mild FACIAL Verified 03/11/21 17:23 RASH, LIP SWELLING, AND DERMATITIS Review of Systems Review of Systems Narrative: GENERAL: Denies chills, fatigue, malaise, fever, sweats, travel HEENT: See HPI RESPIRATORY: Denies dyspnea, cough, wheezing, hemoptysis, sputum. CARDIOVASCULAR: Denies chest pain, palpitations, orthopnea, edema GASTROINTESTINAL: Denies nausea, vomiting, abdominal pain, diarrhea, constipation, melena. : Denies dysuria, frequency, incontinence, hematuria, urinary retention, flank pain. MUSCULOSKELETAL: Denies weakness, joint pain, or bony pain SKIN: No rash, no erythema, no pruritus NEUROLOGIC: Denies weakness, dizziness, headache, numbness, change in speech, confusion PSYCHIATRIC: No concerning psychosocial issues. 12 point review of systems is negative except for those stated above and HPI Hematologic/Lymphatic On Anticoagulants: Yes (ASA 81 mg daily) Patient History Medical History Acne Asthma Depression (~2012) Excessive drinking of alcohol Fatigue (~2012) Hyperlipidemia Hypertension Hypothyroidism (acquired) Impaired glucose tolerance Mood swings (~2012) Skin infection (vaginal after ) Surgical History History of section (1990) History of hysterectomy (12/15/11) History of laparoscopic cholecystectomy (1996) History of myomectomy (01/23/06) History of myomectomy (07/20/10) History of right breast biopsy (1989) S/P cervical polypectomy (~05/29/19) S/P gastric bypass (12/22/09) Family History Father Diabetes mellitus Brain aneurysm CT (myocardial infarction) Mother Asthma Obesity Grandfather Hypertension Hx of CABG Daughter Asthma Hayfever Daughter Asthma Hayfever Social History marital status: number of children: 2 household members: spouse and children lives independently: Yes caregiver/support person: No housing: house occupational status: employed seatbelt use: always Smoking Status: Never smoker alcohol intake: current substance use type: does not use Smoking Status: Never smoker alcohol intake frequency: 3 or more drinks per day Substance Use Type: does not use Exam Initial Vital Signs Initial Vital Signs: Vital Signs Temperature 97.1 F L 03/11/21 17:19 Pulse Rate 74 03/11/21 17:19 Respiratory Rate 18 03/11/21 17:19 Blood Pressure 171/96 H 03/11/21 17:19 Pulse Oximetry 99 03/11/21 17:19 GENERAL: Alert well-appearing 51-year-old female and in no acute distress. HEENT: Head atraumatic,EOMI, pupils reactive, face symmetric, moist mucous membranes CARDIOVASCULAR: Regular rate and rhythm without murmurs, rubs or gallops. RESPIRATORY: Breath sounds equal bilaterally, no wheezes rales or rhonchi. ABDOMEN: Soft, nontender. Normoactive bowel sounds all 4 quadrants. No guarding or rebound. EXTREMITIES: Normal range of motion, no clubbing or edema. Neurovascularly intact NEUROLOGICAL: Alert and oriented x4.Normal gait and speech. Cranial nerves II through XII grossly intact. Good tykfqr-[id number]-fddh, good egip-yh-wksq, strength equal bilaterally, no dysarthria or aphasia, sensation in tact to soft touch bilaterally, no visual changes, no facial droop no peripheral visual loss at this time SKIN: Warm, dry, no laceration, no petechiae, no rashes or lesions. Scores NIH Stroke Scale Level of Conciousness: Alert, keenly responsive Ask month/age: Answers both questions correctly. Open/close eyes, close hand: Performs both tasks correctly Best gaze horizontal: Normal Visual hawkins: No visual loss Facial palsy: Normal symetrical movement Left arm drift: No drift for full 10 sec Right arm drift: No drift for full 10 sec Left leg drift: No drift for full 5 sec Right leg drift: No drift for full 5 sec Limb ataxia: Absent Sensory on face/arms/legs: Normal, no sensory loss Best language: No aphasia, normal Dysarthria: Normal Extinction or inattention: No abnormality Total NIH Stroke scale score: 0 Course Orders Ordered: ED Orders 03/11/21 17:24 CT head/brain wo con Stat Urine Drug Screen, Rapid Stat EKG-12 Lead Stat 03/11/21 17:39 Complete Blood Count AUTO DIFF Stat Comprehensive Metabolic Panel Stat Ethanol (ETOH) Stat Partial Thromboplastin Time Stat Prothrombin Time INR Stat Troponin & CK Cardiac Panel Stat 03/11/21 19:12 CT angio head and neck Stat 03/11/21 20:10 COVID19 - ADMIT (APPLICATION ENGINEER swab/PCR) Stat 03/11/21 21:18 Urinalysis and Microscopic Stat Acetaminophen (Acetaminophen 325 Mg Tablet) 650 mg PO Q6HR PRN PRN Reason: Fever/Mild Pain (1-3) Bupropion HCl (Bupropion Sr 100 Mg Tab) 200 mg PO BID ALESHA Clonidine HCl (Clonidine 0.1 Mg Tablet) 0.15 mg PO BID ALESHA Enoxaparin Sodium (Enoxaparin 40 Mg/0.4 Ml Syringe) 40 mg SUBCUT DAILY ALESHA Gabapentin (Gabapentin 100 Mg Capsule) 100 mg PO BEDTIME PRN PRN Reason: Pain (Scale Score 7-10) Levothyroxine Sodium (Levothyroxine 75 Mcg Tablet) 75 mcg PO QACBREAK ALESHA Lisinopril (Lisinopril 5 Mg Tablet) 5 mg PO DAILY ALESHA Ondansetron HCl (Ondansetron 4 Mg/2 Ml Inj) 4 mg IV Q8HR PRN PRN Reason: Nausea And Vomiting Discontinued Medications Acetaminophen (Acetaminophen 325 Mg Tablet) 975 mg PO NOW ONE Stop: 03/11/21 21:41 Last Admin: 03/11/21 22:03 Dose: 975 mg Documented by: ANSLEY Gabapentin (Gabapentin 100 Mg Capsule) 100 mg PO NOW ONE Stop: 03/11/21 21:41 Last Admin: 03/11/21 22:04 Dose: 100 mg Documented by: ANSLEY Sodium Chloride (Normal Saline 0.9%) 1,000 mls @ 150 mls/hr IV CONT ALESHA Last Infusion: 03/11/21 22:29 Dose: 150 mls/hr Documented by: Admin: 03/11/21 18:02 Dose: 150 mls/hr Documented by: NIRU Vital Signs Vital signs: Vital Signs - 8 hr 03/11/21 17:19 03/11/21 17:37 03/11/21 17:47 Temperature 97.1 F L Pulse Rate 74 66 72 Respiratory Rate 18 Blood Pressure 171/96 H 200/96 H Pulse Oximetry 99 100 100 03/11/21 18:00 03/11/21 18:02 03/11/21 18:15 Temperature Pulse Rate 64 61 65 Respiratory Rate Blood Pressure 157/85 H Pulse Oximetry 98 98 98 03/11/21 18:30 03/11/21 18:45 03/11/21 19:00 Temperature Pulse Rate 66 62 63 Respiratory Rate Blood Pressure Pulse Oximetry 98 98 99 03/11/21 19:15 Temperature Pulse Rate 66 Respiratory Rate Blood Pressure Pulse Oximetry 96 MDM - Neuro Symptoms/Deficit Lab Data Attestation: I reviewed the patient's lab results. Result diagrams: 03/11/21 17:39 03/11/21 17:39 Labs: Lab Results 03/11/21 03/11/21 03/11/21 Range/Units 17:39 17:39 17:39 WBC 10.9 (4.5-11.0) X10^3/uL RBC 4.37 (4.0-5.2) X10^6/uL Hgb 12.4 (12.0-16.0) g/dL Hct 38.3 (36-46) % MCV 87.5 (80-100) fL MCH 28.4 (26-34) PG MCHC 32.5 (30-36) % RDW 13.9 (11.6-14.8) % Plt Count 375 (150-400) X10^3/uL Neut % (Auto) 64.4 (50-75) % Lymph % (Auto) 26.4 (25-40) % [place] % (Auto) 7.8 (3-14) % Eos % (Auto) 1.2 L (2-4) % Baso % (Auto) 0.2 (0-2) % Neut # (Auto) 7000 (5778-5486) /uL Lymph # (Auto) 2900 (5437-0454) /uL [place] # (Auto) 800 (0-900) /uL Eos # (Auto) 100 (0-450) /uL Baso # (Auto) 0 (0-100) /uL PT 13.1 H (10.1-12.7) SECONDS INR 1.2 (0.9-1.3) APTT 33 (26.4-36.2) SECONDS Sodium 137 (137-145) mmol/L Potassium 4.0 (3.4-5.1) mmol/L Chloride 102 (98-107) mmol/L Carbon Dioxide 27 (22-32) mmol/L BUN 16 (7-17) mg/dL Creatinine 0.83 (0.52-1.04) mg/dL Estimated GFR > 60.0 (>60) mL/min BUN/Creatinine Ratio 19.3 (6-22) Glucose 91 (70-100) mg/dL Calcium 9.1 (8.4-10.2) mg/dL Total Bilirubin 0.4 (0.2-1.3) mg/dL AST 48 H (14-36) IU/L ALT 27 (<35) IU/L Alkaline Phosphatase 96 (38-126) U/L Total Creatine Kinase 384 H (30-135) U/L CK-MB (CK-2) 3.37 H (<2.37) ng/mL CK-MB (CK-2) Rel Index 0.9 L (1.5-5.0) % Troponin I < 0.012 (0.01-0.034) ng/mL Total Protein 7.8 (6.3-8.2) g/dL Albumin 4.7 (3.5-5.0) g/dL Globulin 3.1 (1.7-4.1) g/dL Albumin/Globulin Ratio 1.5 (1.0-2.8) Ethyl Alcohol < 10 ( - 10) mg/dL SARS-CoV-2 (PCR) (Negative) 03/11/21 Range/Units 20:10 WBC (4.5-11.0) X10^3/uL RBC (4.0-5.2) X10^6/uL Hgb (12.0-16.0) g/dL Hct (36-46) % MCV (80-100) fL MCH (26-34) PG MCHC (30-36) % RDW (11.6-14.8) % Plt Count (150-400) X10^3/uL Neut % (Auto) (50-75) % Lymph % (Auto) (25-40) % [place] % (Auto) (3-14) % Eos % (Auto) (2-4) % Baso % (Auto) (0-2) % Neut # (Auto) (0456-3625) /uL Lymph # (Auto) (6321-6249) /uL [place] # (Auto) (0-900) /uL Eos # (Auto) (0-450) /uL Baso # (Auto) (0-100) /uL PT (10.1-12.7) SECONDS INR (0.9-1.3) APTT (26.4-36.2) SECONDS Sodium (137-145) mmol/L Potassium (3.4-5.1) mmol/L Chloride (98-107) mmol/L Carbon Dioxide (22-32) mmol/L BUN (7-17) mg/dL Creatinine (0.52-1.04) mg/dL Estimated GFR (>60) mL/min BUN/Creatinine Ratio (6-22) Glucose (70-100) mg/dL Calcium (8.4-10.2) mg/dL Total Bilirubin (0.2-1.3) mg/dL AST (14-36) IU/L ALT (<35) IU/L Alkaline Phosphatase (38-126) U/L Total Creatine Kinase (30-135) U/L CK-MB (CK-2) (<2.37) ng/mL CK-MB (CK-2) Rel Index (1.5-5.0) % Troponin I (0.01-0.034) ng/mL Total Protein (6.3-8.2) g/dL Albumin (3.5-5.0) g/dL Globulin (1.7-4.1) g/dL Albumin/Globulin Ratio (1.0-2.8) Ethyl Alcohol ( - 10) mg/dL SARS-CoV-2 (PCR) Negative (Negative) Urine Dip Bedside Urine Glucose Negative Bedside Urine Bilirubin - Negative Bedside Urine Ketone - Negative Urine Specific Lucas 1.015 Bedside Urine Occult Blood - Negative Bedside Urine pH 6 Bedside Urine Protein - Negative Bedside Urine Urobilinogen - Negative Bedside Urine Nitrite - Negative Bedside Urine Leukocytes - Negative Esterase Imaging Data CT scan - head: Radiologist's Impression: PROCEDURE: CT HEAD/BRAIN WO CON INDICATIONS: visual disturbance, headache TECHNIQUE: Noncontrast 4.5 mm thick angled axial sections acquired from the foramen magnum to the vertex, with coronal and sagittal reformats. For radiation dose reduction, the following was used: automated exposure control, adjustment of mA and/or kV according to patient size. COMPARISON: None. FINDINGS: Image quality: Excellent. CSF spaces: Basal cisterns are patent. No extra-axial fluid collections. Ventricles are normal in size and shape. Brain: No midline shift. No intracranial masses or hemorrhage. Pham-white matter interface is normal. Skull and face: Calvarium and visualized facial bones are intact, without suspicious lesions. Sinuses: There is a mucous retention cyst seen along the posterior aspect of the left maxillary sinus, as on series 3, image 2. Visualized sinuses and mastoids are otherwise clear. IMPRESSION: No imaging explanation is found for this patient's presenting symptoms. If it would be helpful for clinical management decision making, please consider a dedicated brain MRI (without and with contrast) for further evaluation (assuming that there is no contraindication). Dictated by: Damaso Wakefield M.D. on 03/11/2021 at 17:12 Approved by: Damaso Wakefield M.D. on 03/11/2021 at 17:14 CTA - brain/neck: Radiologist's Impression: PROCEDURE: CT ANGIO HEAD AND NECK INDICATIONS: right partial visual loss now resolving TECHNIQUE: After the administration of intravenous contrast, 1 mm thick sections acquired from the aortic arch through the Jackson of Steinberg. Post-contrast 4.5 mm thick sections then re-acquired from the foramen magnum to the vertex. 3-dimensional lvhycwj-uqmltstzm-aiqfcthkbp (MIP) and/or volume rendering reformats were acquired of the central intracranial vasculature and neck separately. COMPARISON: [facility], CT, CT HEAD/BRAIN WO CON, 03/11/2021, 17:31. FINDINGS: Image quality: Excellent. BRAIN: CSF spaces: Ventricles are normal in size and shape. Basal cisterns are patent. No extra-axial fluid collections. Brain: No midline shift. No intracranial bleeds or masses. Pham-white matter interface appears intact. Skull and face: Calvarium and facial bones appear intact, without suspicious lesions. Orbits appear normal. Sinuses: Mucosal thickening or mucous retention cyst in the left maxillary sinus. Otherwise clear. HEAD CT ANGIOGRAPHY: Anterior circulation: Intracranial internal carotid arteries are normal in size and flow. The flow within the paired anterior cerebral arteries is normal and symmetric. The flow within the middle cerebral arteries is normal and symmetric. The anterior communicating artery is seen. Posterior communicating arteries are hypoplastic or absent. No aneurysms are seen. Posterior circulation: Visualized portions of the vertebral arteries demonstrate normal caliber, and join to form a normal appearing basilar artery. Flow within the posterior cerebral arteries is normal and symmetric. No aneurysms are seen. NECK CT ANGIOGRAPHY: Carotid system: The great vessels demonstrate a conventional anatomy as they arise from the aortic arch. The origins of the common carotid arteries appear patent. The common carotid arteries demonstrate normal caliber and courses. The bifurcation regions are both widely patent. The internal carotid arteries demonstrate normal calibers and courses. No calcified plaque at the carotid bulbs. Posterior circulation: The origins of the vertebral arteries both appear widely patent. Left vertebral artery originates off of the aortic arch, variant origin. The more superior extracranial portions of both vertebral arteries also demonstrate normal courses and calibers. They join to form a normal appearing basilar artery. Soft tissues: Visualized neck soft tissues demonstrate no suspicious abnormalities. Small calcified right thyroid nodule. Tiny left thyroid nodule. Bones: No suspicious bony lesions. Early onset degenerative change in the cervical spine with mild kyphosis , osteophytosis, and intervertebral disc space height loss, and subchondral cystic change. IMPRESSION: 1. No large vessel occlusion. 2. No significant stenosis in the neck. 3. Early onset degenerative change in the cervical spine, rips-xm-lbejyydl severity. Any quantitative measurements of stenosis were performed using NASCET criteria. Dictated by: Buck Sims M.D. on 03/11/2021 at 20:41 ECG Data Attestation: I personally reviewed and interpreted this ECG as follows: Prior ECG tracings: available for review Interpretation: Rhythm rate 58 p.r. interval 150 QRS [address] changes or T-wave inversions MDM Narrative Medical decision making narrative: Patient has resolving symptoms of visual disturbance which makes her not a candidate for tPA. Difficult to say if it is partial hemianopsia or all of our which would include possible retinal detachment. However her symptoms have improved which makes it unlikely to be retinal detachment. After I discussed with her it does seem to be that it is peripheral hemianopsia that has improved are rather than a superior to inferior visual loss it seems to be more of a lateral loss. No other focal deficits. He she states that she has not gone through alcohol withdrawal in the past. Ongoing headache she states that she usually takes gabapentin and Tylenol for it, which she is given in the ED Discussed case with Dr. Latham who accepts patient for observation Discharge Plan Departure Patient Disposition: Admitted as Observation Clinical Impression: Brain TIA Admit Date/Time: 03/11/21 21:37 Admit Provider: Marcelino Latham
[2021-03-11 21:36] LABS: COVID19 - ADMIT (NP swab/PCR) Negative (Negative)
[2021-03-11] MEDS: ACETAMINOPHEN 325 MG TABLET 975 MG PO (22:03)
[2021-03-11] MEDS: GABAPENTIN 100 MG CAPSULE PO (22:04)
--- NOTE | 2021-03-11 22:31 | DI.MRI.S_ITS ---
PROCEDURE: MR STROKE Pre- and post-contrast brain MRI, non-contrast brain MR angiogram, pre- and postcontrast neck MR angiogram INDICATIONS: visual loss TECHNIQUE: Brain: Noncontrast axial T1 spin echo, axial T2 fast spin echo, sagittal and axial FLAIR, coronal T2 fast spin echo, axial gradient echo, axial diffusion and ADC through the brain. After the administration of contrast, axial 3D VIBE of the cranial vasculature and brain. Brain MRA: Non-contrast 3-D time of flight MR angiogram, with multiple ativteo-tggocexgr-lounwblecx (MIP) reformats performed. Neck MRA: Axial and sagittal TruFISP through the neck. Coronal dynamic MR angiogram during administration of contrast in the arterial and venous phases, with 3-dimenstional lvxxaxi-verbzkdhe-yriusgnwyf (MIP) reformats constructed from subtraction images. COMPARISON: [facility], CT, CT HEAD/BRAIN WO CON, 03/11/2021, 17:31. [facility], CT, CT ANGIO HEAD AND NECK, 03/11/2021, 19:21. FINDINGS: Image quality: Excellent. BRAIN: CSF spaces: Ventricles are normal in size and shape. Basal cisterns are patent. No extra-axial fluid collections. Brain: No intracranial bleeds or mass effects. Pham-white matter interface is normal. Diffusion weighted images show no acute ischemic insults. Brainstem appears normal. Normal intravascular flow voids are present. No abnormal intracranial enhancement. Skull and face: Calvarial marrow signal is normal. Orbits appear normal. Sinuses: Focal mucosal thickening is seen involving the posterior aspect of the left maxillary sinus. Sinuses and mastoids are otherwise clear. BRAIN MR ANGIOGRAM: Anterior circulation: Intracranial internal carotid arteries are normal in size and enhancement. The flow within the paired anterior cerebral arteries is normal and symmetric. The flow within the middle cerebral arteries is normal and symmetric. The anterior communicating artery is seen. No stenoses, occlusions, or aneurysms. Posterior circulation: The left vertebral artery is normal. On the brain MR angio images, the right vertebral artery is not well seen. The basilar artery is normal. The flow within the posterior cerebral arteries is normal and symmetric. No stenoses, occlusions, or aneurysms. NECK MR ANGIOGRAM: Carotids: Great vessels demonstrate a conventional anatomy as they arise from the aortic arch. The origins of the common carotid arteries appear patent. The calibers and courses of both common carotid arteries are normal. The bifurcation regions appear normal bilaterally. The internal carotid arteries demonstrate normal course and caliber. Posterior circulation: The left vertebral artery is normal. 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 Poor flow is seen within the proximal right vertebral artery. The distal right vertebral artery is believed to be opacified via retrograde flow. Miscellaneous: Subclavian arteries appear patent. Pre-contrast images through the neck show no soft tissue abnormalities. IMPRESSION: BRAIN MRI: No findings of acute or subacute infarction can be seen. BRAIN MR ANGIOGRAM: Nonvisualization of the right vertebral artery. 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 No carotid stenosis is seen. Dictated by: Damaso Wakefield M.D. on 03/12/2021 at 8:39 Approved by: Damaso Wakefield M.D. on 03/12/2021 at 8:49
[2021-03-12] VITALS (7 sets, daily range): BP systolic 119–171; BP diastolic 68–97; PULSE 52–77; RESP 16–18; TEMP 36.2–36.4; O2SAT 97–99; BMI 28.0
--- NOTE | 2021-03-12 02:21 | PC.NURSE ---
Addendum entered by Katelin Hughes R.N. 03/12/21 03:43: Flashes of light to right eye periphery-not left. Original Note: Pt resting in bed with Spouse rooming-in at the window seat. Denies nausea, dizziness or loss of vision but states she periodically sees flashes of light to her left periphery without peripheral vision lost. Denies blurriness. Pt wears glassed and they area on. Oriented to room, call light, bed controls, and tv controls. Bed alarm placed on due to fall status. Denies weakness. States she has a mild headache and that she has suffered from increased headaches within the past year possibly related to shingles to the left side of her face and encroaching her eyelid which she had last year as well as increased stress. She relates that within the past year her alcohol consumption has increased as well secondary to stress and she is very aware and conscious of her increased intake. Ice pack given for headache and Pt denies needs at this time and agrees to call for assistance as needed.
[2021-03-12] MEDS: ACETAMINOPHEN 325 MG TABLET 650 MG PO ×3 (05:25→17:46)
[2021-03-12] MEDS: GABAPENTIN 100 MG CAPSULE PO ×2 (05:28→11:09)
[2021-03-12 05:51] LABS: Cholesterol 164 mg/dL (140-199); HDL Cholesterol 82 mg/dL (40-60); LDL Cholesterol Calculated 70 mg/dL (<100); Triglycerides 59 mg/dL (35-150)
--- NOTE | 2021-03-12 06:27 | P.HP_ITS ---
History of Present Illness History of Present Illness Date Patient Seen: 03/12/21 Time Patient Seen: 06:29 Chief complaint: Poss Stroke Narrative: 51-year-old female with a past medical history of sciatica depression hypertension gastric bypass surgery hypothyroidism will alcohol misuse presents to the hospital with the sudden onset of right visual field loss. She says it was on an angle in her right eye. The upper part of her vision. She says she has never had that before there was maybe some flashes of lights. Symptoms lasted for about an hour to 2 hours she became concerned and came to the emergency department her vision is now back to normal. She says it took about 2 hours to get back to normal. She has a history of migraine headaches but never has had any transient visual loss is with her migraine headaches. She has shingles on the left side of her face and some eye problems and saw an eye doctor fairly recently. Other than the transient vision loss. She has had no other stroke-like symptoms such as problems with speech balance coordination weakness numbness or tingling. She says that she does have a little bit of a stress in her life. But she does not think that is because of this but may be the cause of her mildly elevated blood pressure. She has had no other previous stroke-like symptoms. She sees her primary care physician regularly. Patient History Medical History Acne Asthma Depression (~2012) Excessive drinking of alcohol Fatigue (~2012) Hyperlipidemia Hypertension Hypothyroidism (acquired) Impaired glucose tolerance Mood swings (~2012) Skin infection (vaginal after ) Surgical History History of section (1990) History of hysterectomy (12/15/11) History of laparoscopic cholecystectomy (1996) History of myomectomy (01/23/06) History of myomectomy (07/20/10) History of right breast biopsy (1989) S/P cervical polypectomy (~05/29/19) S/P gastric bypass (12/22/09) Family & Social History Family History Father Diabetes mellitus Brain aneurysm [place] (myocardial infarction) Mother Asthma Obesity Grandfather Hypertension Hx of CABG Daughter Asthma Hayfever Daughter Asthma Hayfever Social History: household members spouse,children Prior Living Arrangements House lives independently Yes caregiver/support person No Safety & Behavioral: Feels Safe in Current Yes Environment Been Physically Hurt or No Threatened By a Person Suicidal Ideation Description None Suicide Plan Description No Plan Tobacco & Substance use: Smoking Status Never smoker alcohol intake current alcohol intake frequency 3 or more drinks per day Substance Use Type does not use Meds Home Medications and Allergies Home Medications Medication Instructions Recorded Confirmed Type estradiol 0.05 mg/24 hr semiweekly See Rx Instructions .ROUTE 02/07/21 03/11/21 Rx transdermal patch .COMPLEX #8 ea aspirin 81 mg PO DAILY 03/11/21 03/11/21 History bupropion HCl 200 mg PO BID 03/11/21 03/11/21 History clonidine HCl 0.15 mg PO BID 03/11/21 03/11/21 History gabapentin 100 mg PO BEDTIME PRN 03/11/21 03/11/21 History levothyroxine 75 mcg PO DAILY 03/11/21 03/11/21 History lisinopril 5 mg PO DAILY 03/11/21 03/11/21 History Allergies Allergy/AdvReac Type Severity Reaction Status Date / Time hydrocodone Allergy Intermediate facial Verified 03/11/21 17:23 swelling egg [EGG] Allergy Mild HIVES/WHITE Verified 03/11/21 17:23 ONLY NSAIDS (Non-Steroidal Allergy Mild Nausea Verified 03/11/21 17:23 Anti-Inflamma [NSAIDS (NON-STEROIDAL ANTI-INFLAMMA] oxycodone [OXYCODONE] Allergy Mild DECREASE Verified 03/11/21 17:23 HR AND DECREASE BP sulfamethoxazole Allergy Mild LIP Verified 03/11/21 17:23 [SULFAMETHOXAZOLE] SWELLING, FACIAL RASH, AND DERMATITIS tetracycline [TETRACYCLINE] Allergy Mild SEVERE Verified 03/11/21 17:23 SKIN SWELLING trimethoprim [TRIMETHOPRIM] Allergy Mild FACIAL Verified 03/11/21 17:23 RASH, LIP SWELLING, AND DERMATITIS Exam Vital Signs (past 8 hours): - 03/11/21 22:40 03/11/21 23:35 03/11/21 23:59 Temperature 97 F L 98.0 F Pulse Rate 62 62 72 Respiratory Rate 16 18 18 Blood Pressure 167/98 H 160/105 H 145/82 H Pulse Oximetry 100 100 03/12/21 05:49 Temperature 97.4 F L Pulse Rate 58 L Respiratory Rate 16 Blood Pressure 128/68 Pulse Oximetry 99 Oxygen Delivery Method Room Air Oxygen Flow Rate 0 Narrative Exam Narrative: Gen.: Alert good historian HEENT: Pupils equal round and reactive to light oral mucosa is moist neck is supple Cardio: Regular rate and rhythm Respiratory: Lungs are clear to auscultation no wheezes or crackles normal respiratory effort. Abdomen: Soft nontender no rebound or guarding no liver spleen enlargement no appreciable hernias Extremities: Full range of motion no appreciable weakness no cyanosis or edema. Neurologic: Grossly intact. Objective Labs Result Diagrams: 03/11/21 17:39 03/11/21 17:39 Labs: Laboratory Results - last 24 hr 03/11/21 03/11/21 03/11/21 17:39 17:39 17:39 WBC 10.9 RBC 4.37 Hgb 12.4 Hct 38.3 MCV 87.5 MCH 28.4 MCHC 32.5 RDW 13.9 Plt Count 375 Neut % (Auto) 64.4 Lymph % (Auto) 26.4 [place] % (Auto) 7.8 Eos % (Auto) 1.2 L Baso % (Auto) 0.2 Neut # (Auto) 7000 Lymph # (Auto) 2900 [place] # (Auto) 800 Eos # (Auto) 100 Baso # (Auto) 0 PT 13.1 H INR 1.2 APTT 33 Sodium 137 Potassium 4.0 Chloride 102 Carbon Dioxide 27 BUN 16 Creatinine 0.83 Estimated GFR > 60.0 BUN/Creatinine Ratio 19.3 Glucose 91 Calcium 9.1 Total Bilirubin 0.4 AST 48 H ALT 27 Alkaline Phosphatase 96 Total Creatine Kinase 384 H CK-MB (CK-2) 3.37 H CK-MB (CK-2) Rel Index 0.9 L Troponin I < 0.012 Total Protein 7.8 Albumin 4.7 Globulin 3.1 Albumin/Globulin Ratio 1.5 Triglycerides Cholesterol LDL Cholesterol, Calc HDL Cholesterol Ethyl Alcohol < 10 SARS-CoV-2 (PCR) 03/11/21 03/12/21 20:10 05:21 WBC RBC Hgb Hct MCV MCH MCHC RDW Plt Count Neut % (Auto) Lymph % (Auto) [place] % (Auto) Eos % (Auto) Baso % (Auto) Neut # (Auto) Lymph # (Auto) [place] # (Auto) Eos # (Auto) Baso # (Auto) PT INR APTT Sodium Potassium Chloride Carbon Dioxide BUN Creatinine Estimated GFR BUN/Creatinine Ratio Glucose Calcium Total Bilirubin AST ALT Alkaline Phosphatase Total Creatine Kinase CK-MB (CK-2) CK-MB (CK-2) Rel Index Troponin I Total Protein Albumin Globulin Albumin/Globulin Ratio Triglycerides 59 Cholesterol 164 LDL Cholesterol, Calc 70 HDL Cholesterol 82 H Ethyl Alcohol SARS-CoV-2 (PCR) Negative Assessment & Plan Assessment & Plan narrative: Transient visual loss 51-year-old female with transient visual loss of right eye which is now completely resolved. Differential possibilities include retinal or artery vein occlusion cerebrovascular injury other vascular disease migraine headache. Patient's vision is now back to normal. Overnight had normal telemetry monitoring with no significant signs of arrhythmias. She was given an aspirin. We will continue her aspirin. Will further the workup for potential cerebrovascular accident. Obtain MRI a MRI stroke protocol today with an echocardiogram. If these are completely normal we will go ahead and let patient be discharged home to follow- up with her group insurance special agent and her primary care physician she will be remained tainted on a full strength aspirin a day. In addition to her home medication. Her LDL cholesterol is 70 and total cholesterol is 164 we will hold off on statin therapy at this point. Hypothyroidism patient will be on her thyroid medication replacement while she is here in the hospital. Hypertension. Patient on lisinopril this medication will be continued. Disposition and plan MRI stroke protocol echocardiogram if normal patient will be discharged later today. Quality VTE Deep Vein Thrombosis/Pulmonary Embolism Present on Admission: No
--- NOTE | 2021-03-12 06:29 | DI.ECHO.S_ITS ---
[facility] +---------+ : : [address] : [place] : : : : [id number] : : : : Phone: [phone]+ Echocardiogram Report + + :Name: PERRY HU Study Date: 03/12/2021 Height: 64 in : :[facility] ReadingLocation: Weight: 163 lb : : Gender: Female BSA: 1.8 m2 : :: 1970 Age: 51 yrs BP: 167/98 mmHg: :Reason For Study: TIA : :Ordering Physician: Marino : :Hospitalist Performed By: Erica Page : :Referring: MONET OLEARY : + + Interpretation Summary 1) Mildly enlarged left ventricle with mildly reduced systolic function (EF 45-50%). 2) The right ventricle is normal in size and function. 3) No significant valvular abnormalities. 4) Doppler interrogation and injection of saline echo contrast shows no evidence for an interatrial shunt. 5) Hypertension is present during the study (BP 167/98mmHg). 6) Compared to the Echo done 08/16/2010, LVEF is mildly reduced on this study. Procedure: A two-dimensional transthoracic echocardiogram with color flow and Doppler was performed. The study quality was technically adequate. A saline contrast injection was performed to assess for cardiac shunting. The patient was in sinus bradycardia with heart rates between 48-50 bpm during the exam. Left Ventricle: The left ventricle is mildly dilated. There is normal left ventricular wall thickness. The ejection fraction is estimated to be 45-50%. There is mild global hypokinesis of the left ventricle. Right Ventricle: The right ventricle is normal in size and function. Atria: The left atrium is moderately dilated. The right atrium is mildly dilated. Doppler interrogation and injection of saline echo contrast shows no evidence for an interatrial shunt. Mitral Valve: The mitral valve is normal in structure and function. There is trace mitral regurgitation. Aortic Valve: The aortic valve is normal in structure and function. There is no aortic valve stenosis. No aortic regurgitation is present. Tricuspid Valve: The tricuspid valve is normal in structure and function. There is a trace or physiologic amount of tricuspid regurgitation. Pulmonary artery pressures cannot be estimated because of the lack of a measurable TR jet velocity but the IVC suggests a CVP of around 3 mmHg. Pulmonic Valve: The pulmonic valve is not well visualized. Great Vessels: The aortic root is normal size. The aortic arch is normal in size. The ascending aorta is at the upper limits of normal in size. The pulmonary is not well visualized. The IVC is of normal diameter and collapses greater than 50% with a sniff. This suggests a low right atrial pressure of 3 mm Hg. Pericardium/ Pleura There is no pericardial effusion. There is no pleural effusion. MMode/2D Measurements & Calculations LVIDd: 5.5 cm LVOT diam: 2.0 cm LVIDs: 3.8 cm Ao root diam: 2.8 cm FS: 30.8 % asc Aorta Diam: 3.4 cm IVSd: 0.64 cm Ao Arch Diam (Prox Trans): 2.5 cm LVPWd: 0.82 cm LV urbina. diameter/BSA (cm/m^2): 3.1 LV sys. diameter/BSA (cm/m^2): 2.1 LA A2 area: 22.4 cm2 RA long axis: 5.0 cm LA A4 area: 24.9 cm2 RA area: 17.4 cm2 LA length (vol): 5.8 cm RA vol: 51.7 ml LA vol: 81.3 ml RA : 28.8 ml/m2 LA vol index: 45.3 ml/m2 RVD1 (basal): 3.8 cm TAPSE: 2.6 cm Doppler Measurements & Calculations Ao V2 max: 126.0 cm/sec LVOT Max Franck: 81.7 cm/sec Ao V2 mean: 87.4 cm/sec LV V1 max P.7 mmHg Ao max P.3 mmHg LV V1 VTI: 18.9 cm Ao mean P.6 mmHg ELLEN(I,D): 2.0 cm2 Ao V2 VTI: 30.6 cm ELLEN(V,D): 2.1 cm2 sev ratio: 0.62 ELLEN indexed to BSA (cm^2/m^2): 1.1 MV E max franck: 80.8 cm/sec PA V2 max: 59.3 cm/sec MV A max franck: 56.8 cm/sec PA V2 mean: 44.0 cm/sec MV E/A: 1.4 PA mean P.82 mmHg Med Peak E' Franck: 7.7 cm/sec E/E' med: 10.4 Lat Peak E' Franck: 9.5 cm/sec E/E' lat: 8.5 E/e' average: 9.5 MV dec time: 0.24 sec SV(LVOT): 61.3 ml Reading Physician:03:41 PM
[2021-03-12] MEDS: LEVOTHYROXINE 75 MCG TABLET PO (07:14)
[2021-03-12] MEDS: buPROPion SR 100 MG TAB 200 MG PO (09:37)
[2021-03-12] MEDS: ENOXAPARIN 40 MG/0.4 ML SYRINGE SUBCUT (09:37)
[2021-03-12] MEDS: cloNIDine 0.1 MG TABLET 0.15 MG PO (09:37)
[2021-03-12] MEDS: lisinopriL 5 MG TABLET PO (09:39)
[2021-03-12 11:33] LABS: Bacteria Urine None Seen; RBC Urine None Seen (0-5/HPF); WBC Urine None Seen (0-5/HPF)
[2021-03-12 11:37] LABS: Appearance Urine UA CLEAR; Bilirubin Urine UA NEGATIVE (NEGATIVE); Color Urine UA YELLOW; Glucose Urine UA TRACE g/dL (Negative); Ketones Urine UA NEGATIVE (NEGATIVE); Leukocyte Esterase Urine UA NEGATIVE (NEGATIVE); Nitrite Urine UA NEGATIVE (Negative); Occult Blood Urine UA NEGATIVE (Negative); Protein Urine UA NEGATIVE (Negative); Urobilinogen Urine UA 0.2 E.U./dL (0.2)
[2021-03-12 11:42] LABS: pH Urine UA 5.5 (4.5-8.0)
[2021-03-12 11:43] LABS: UR Morphine/Opiate cutoff 300 Negative (Negative); Ur Creatinine Normal (Normal); Ur Specific Gravity Normal (Normal); Urine Amphetamines Negative (Negative); Urine Barbiturates Negative (Negative); Urine Benzodiazepines Negative (Negative); Urine Cocaine Negative (Negative); Urine MDMA Negative (Negative); Urine Methadone Negative (Negative); Urine Methamphetamines Negative (Negative); Urine Oxycodone Negative (Negative); Urine Phencyclidine Negative (Negative); Urine Tetrahydrocannabinol Negative (Negative); Urine Tricyclic Antidepressant Negative (Negative); Urine pH Normal (Normal)
[2021-03-12 12:29] LABS: Culture Indicated Urine Cult Not Indicated; Squamous Epithelial Cell Urine 0-1 /HPF (0-5/HPF)
--- NOTE | 2021-03-12 13:13 | CM.DANOTE ---
Discharge Planning/Care Management DCP: assessment: case received, EMR reviewed and met now with pt and her Keith. Introduced self and role. Pt is a 51 year old female who admitted to care of Dr. Latham last evening. 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 Pt confirms that she has had the MRI and is just waiting for ECHO. Dr. Latham has told them that she will be able to go home later today if results indicate appropriate for same. CM Discharge Assessment Start: 03/12/21 13:12 Freq: Status: Active Protocol: Document 03/12/21 13:12 ITV (Rec: 03/12/21 13:13 ITV [id number]) Discharge Planning Assessment Advance Directives? No History Provided By Patient,Family Member,Medical Record Prior Living Arrangements House Household Members spouse,children Independent with ADL's Yes Is patient alert and oriented? Yes Discharge Plan Home
== END 2021-03-12 20:00 | disposition home or self-care (01) ==
LOC: ED 21:11 → AC 21:39
PROVIDERS: Emergency Medicine; Admitting Provider Family Medicine; Emergency Provider Emergency Medicine; PCP Family Medicine; Referring Provider Emergency Medicine; Visit Provider Family Medicine
DX: H53.131 Sudden visual loss, right eye (principal); R51.9 Headache, unspecified; I10 Essential (primary) hypertension; E78.5 Hyperlipidemia, unspecified; E03.9 Hypothyroidism, unspecified; J45.909 Unspecified asthma, uncomplicated; F32.9 Major depressive disorder, single episode, unspecified; F10.10 Alcohol abuse, uncomplicated; Z20.822 Contact with and (suspected) exposure to COVID-19
CPT/HCPCS: 36415; 70450; 70496; 70498; 70548; 70553; 80053; 80061; 80305; 80320; 81001; 81003; 82550; 82553; 84484; 85025; 85610; 85730; 87635; 93005; 93306; 96360; 96361; 96372; 99235; 99285; C9803; G0378; A9579; J1650; Q9967

== ENCOUNTER 2021-03-25 00:08 | Observation (INO) | payer OTHER, SELFPAY ==
[2021-03-12 00:36] VITALS: BMI 28.0
[2021-03-25] VITALS (10 sets, daily range): BP systolic 98–153; BP diastolic 60–86; PULSE 55–91; RESP 16–17; TEMP 36.2–37; O2SAT 96–99; BMI 29.2
--- NOTE | 2021-03-25 00:19 | DI.CT.S_ITS ---
PROCEDURE: CT HEAD/BRAIN WO CON INDICATIONS: confusion and right eye changes TECHNIQUE: Noncontrast 4.5 mm thick angled axial sections acquired from the foramen magnum to the vertex, with coronal and sagittal reformats. For radiation dose reduction, the following was used: automated exposure control, adjustment of mA and/or kV according to patient size. COMPARISON: [facility], CT, CT HEAD/BRAIN WO CON, 03/11/2021, 17:31. FINDINGS: Image quality: Excellent. CSF spaces: Basal cisterns are patent. No extra-axial fluid collections. Ventricles are normal in size and shape. Brain: No intracranial hemorrhage, mass, or mass effect. Pham-white matter interface appears preserved. Skull and face: Calvarium and visualized facial bones are intact, without suspicious lesions. The orbits appear within normal limits. Sinuses: Visualized sinuses demonstrate mild mucosal thickening within the left maxillary sinus with a sinus retention cyst or mucosal polyp posteriorly. IMPRESSION: 1. No acute intracranial abnormality. Concordant with preliminary interpretation. Dictated by: Americo Garvey M.D. on 03/25/2021 at 7:33 Approved by: Americo Garvey M.D. on 03/25/2021 at 7:35
[2021-03-25 00:20] LABS: Add Manual Diff / Slide Review NO; Basophils Absolute Auto 100 /uL (0-100); Basophils Percent Auto 0.4 % (0-2); Eosinophils Absolute Auto 100 /uL (0-450); Eosinophils Percent Auto 1.2 % (2-4); Hematocrit 39.2 % (36-46); Hemoglobin 12.8 g/dL (12.0-16.0); Lymphocytes Absolute Auto 3100 /uL (1100-4500); Lymphocytes Percent Auto 24.8 % (25-40); Mean Corpuscular HGB Conc 32.8 % (30-36); Mean Corpuscular Hemoglobin 28.3 PG (26-34); Mean Corpuscular Volume 86.4 fL (80-100); Monocytes Absolute Auto 700 /uL (0-900); Monocytes Percent Auto 5.9 % (3-14); Neutrophils Absolute Auto 8500 /uL (1500-7000); Neutrophils Percent Auto 67.7 % (50-75); Platelet Count 383 X10^3/uL (150-400); Red Blood Cell Count 4.53 X10^6/uL (4.0-5.2); Red Cell Distribution Width 13.7 % (11.6-14.8); White Blood Cell Count 12.5 X10^3/uL (4.5-11.0)
--- NOTE | 2021-03-25 00:20 | ED.GENADULT ---
HPI - General Adult General Chief complaint: Neuro Symptoms/Deficit Stated complaint: Vision Issues Time Seen by Provider: 03/25/21 00:13 Source: patient, family and EMS Mode of arrival: EMS Limitations: other (Confusion) History of Present Illness HPI narrative: Patient is a 51-year-old female. History of high blood pressure and hypothyroid who arrives by EMS after they were called for the patient waking up with vision changes and also confusion. Review of the patient's note shows that approximately 2 weeks ago the patient was seen in this emergency department and eventually admitted to the hospital for evaluation of a TIA. She had a head CT, CTA of the head and neck that were unremarkable. 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 Review of her palpation note shows that she has followed up with her primary doctor since this event and also Ophthalmology. I did not have the battery container tester notes to review however her primary doctor's note referenced this stating that there was still concerns that the patient had experienced an occipital stroke. There was recommendation that she see a neuro battery container tester however this was not scheduled for another 2 weeks from today. There was also recommendation that she obtain an MRI of the brain with and without contrast for further evaluation of symptoms as well. This evening it was reported that the patient went to bed last night had her normal state health but was woken up with the vision changes. She states that she cannot see in the upper outer portion of her right eye. Review of the note shows that this is where she is been having symptoms over the past 2 weeks. Her symptoms do seem to wax and wane. Patient also states she is somewhat confused. She knows where she is and what year it is although when asked if her vision changes this evening or any different from her prior changes she stated ?I did not know I was having any visual changes ?she was also complaining of a headache behind her right eye. She states she does not remember what time she went to sleep last evening. She answers ?I do not know ?to many of the questions that I ask. Related Data Home Medications Medication Instructions Recorded Confirmed bupropion HCl 200 mg PO BID 03/11/21 03/22/21 clonidine HCl 0.15 mg PO BID 03/11/21 03/22/21 gabapentin 100 mg PO BEDTIME PRN 03/11/21 03/22/21 levothyroxine 75 mcg PO DAILY 03/11/21 03/22/21 Previous Rx's Medication Instructions Recorded estradiol 0.05 mg/24 hr semiweekly See Rx Instructions .ROUTE 02/07/21 transdermal patch .COMPLEX #8 ea aspirin 325 mg PO DAILY #90 tab 03/12/21 lisinopril 10 mg tablet 10 mg PO DAILY #90 tab 03/22/21 pravastatin 10 mg tablet 10 mg PO BEDTIME #30 tab 03/22/21 Allergies Allergy/AdvReac Type Severity Reaction Status Date / Time hydrocodone Allergy Intermediate facial Verified 03/22/21 13:19 swelling egg [EGG] Allergy Mild HIVES/WHITE Verified 03/22/21 13:19 ONLY NSAIDS (Non-Steroidal Allergy Mild Nausea Verified 03/22/21 13:19 Anti-Inflamma [NSAIDS (NON-STEROIDAL ANTI-INFLAMMA] oxycodone [OXYCODONE] Allergy Mild DECREASE Verified 03/22/21 13:19 HR AND DECREASE BP sulfamethoxazole Allergy Mild LIP Verified 03/22/21 13:19 [SULFAMETHOXAZOLE] SWELLING, FACIAL RASH, AND DERMATITIS tetracycline [TETRACYCLINE] Allergy Mild SEVERE Verified 03/22/21 13:19 SKIN SWELLING trimethoprim [TRIMETHOPRIM] Allergy Mild FACIAL Verified 03/22/21 13:19 RASH, LIP SWELLING, AND DERMATITIS Review of Systems Review of Systems Narrative: Review of systems limited based on her ability/willingness to answer questions. She answered ?I do not know ?too many of the review questions. I only recorded definite positives and negatives provided by the patient below. She reported ?I do not know? to questions about chest pain, problems breathing, abdominal pain and urinary symptoms Constitutional Constitutional: Reports headache(s) Eyes Eyes: Reports change in vision ENT Ears, Nose, Mouth, and Throat: Reports headache(s) Neurologic Neurologic: Reports confusion and Reports headache(s) Psychiatric Psychiatric: Reports confusion Hematologic/Lymphatic On Anticoagulants: No Patient History Medical History Acne Asthma Depression (~2012) Excessive drinking of alcohol Fatigue (~2012) Hyperlipidemia Hypertension Hypothyroidism (acquired) Impaired glucose tolerance Mood swings (~2012) Skin infection (vaginal after ) Surgical History History of section (1990) History of hysterectomy (12/15/11) History of laparoscopic cholecystectomy (1996) History of myomectomy (01/23/06) History of myomectomy (07/20/10) History of right breast biopsy (1989) S/P cervical polypectomy (~05/29/19) S/P gastric bypass (12/22/09) Family History Father Diabetes mellitus Brain aneurysm [place] (myocardial infarction) Mother Asthma Obesity Grandfather Hypertension Hx of CABG Daughter Asthma Hayfever Daughter Asthma Hayfever Social History marital status: number of children: 2 household members: spouse and children lives independently: Yes caregiver/support person: No housing: house occupational status: employed seatbelt use: always Smoking Status: Never smoker alcohol intake: current substance use type: does not use Smoking Status: Never smoker alcohol intake frequency: 3 or more drinks per day Substance Use Type: does not use Exam Initial Vital Signs Initial Vital Signs: Vital Signs Temperature 98.6 F 03/25/21 00:10 Pulse Rate 89 03/25/21 00:10 Respiratory Rate 17 03/25/21 00:10 Blood Pressure 153/86 H 03/25/21 00:10 Pulse Oximetry 97 03/25/21 00:10 Const General: cooperative and comfortable HENMT Head: normal to inspection and normocephalic Ears: hearing grossly normal bilaterally Nose: external nose normal Eyes General: appearance normal, both eyes and all related structures Conjunctivae: conjunctivae normal Pupils: PERRL EOM: EOM intact bilaterally Resp Effort & Inspection: normal respiratory effort Auscultation: clear to auscultation bilaterally Cardio Rate: regular rate Rhythm: regular rhythm GI Inspection: non-distended Palpation: soft Skin Lesions: no lesions Rashes: no rashes Neuro General: patient alert, patient awake and moves all extremities Cranial Nerves: PERRL Speech: speech normal Motor: muscle tone normal throughout Sensory Exam: no sensory deficits noted Coordination: [id number] test normal Other: Cranial nerves are intact however she reports a decrease in vision to the upper temporal right eye vision field. Extrem General: capillary refill normal Psych Appearance: grossly normal and well kempt Scores GCS Michelle coma scale eye opening: Spontaneous Michelle coma scale verbal response: Confused Michelle coma scale motor response: Obey commands Michelle coma scale total score: 14 NIH Stroke Scale Level of Conciousness: Alert, keenly responsive Ask month/age: Answers both questions correctly. Open/close eyes, close hand: Performs both tasks correctly Best gaze horizontal: Normal Visual hawkins: Partial hemianopia Facial palsy: Normal symetrical movement Left arm drift: No drift for full 10 sec Right arm drift: No drift for full 10 sec Left leg drift: No drift for full 5 sec Right leg drift: No drift for full 5 sec Limb ataxia: Absent Sensory on face/arms/legs: Normal, no sensory loss Best language: No aphasia, normal Dysarthria: Normal Extinction or inattention: No abnormality Total NIH Stroke scale score: 1 Course Orders Ordered: ED Orders 03/25/21 00:05 Complete Blood Count AUTO DIFF Stat Comprehensive Metabolic Panel Stat Ethanol (ETOH) Stat Lipase Stat Thyroid Stimulating Hormone Stat Troponin & CK Cardiac Panel Stat 03/25/21 00:15 EKG-12 Lead Stat 03/25/21 00:19 CT head/brain wo con Stat 03/25/21 01:31 Consult to Physician Stat 03/25/21 01:57 Consult to Physician Urgent Ondansetron HCl (Ondansetron 4 Mg/2 Ml Inj) 4 mg IV Q4HR PRN PRN Reason: Nausea And Vomiting Discontinued Medications Ondansetron HCl (Ondansetron 4 Mg/2 Ml Inj) 4 mg IV NOW ONE Stop: 03/25/21 01:14 Last Admin: 03/25/21 01:18 Dose: 4 mg Documented by: SARA Vital Signs Vital signs: Vital Signs - 8 hr 03/25/21 00:10 Temperature 98.6 F Pulse Rate 89 Respiratory Rate 17 Blood Pressure 153/86 H Pulse Oximetry 97 Medical Decision Making Medical Records Medical records reviewed: Yes I reviewed the patient's medical records. Lab Data Lab results reviewed: Yes I reviewed the patient's lab results. Result diagrams: 03/25/21 00:05 03/25/21 00:05 Labs: Lab Results 03/25/21 03/25/21 03/25/21 Range/Units 00:05 00:05 00:05 WBC 12.5 H (4.5-11.0) X10^3/uL RBC 4.53 (4.0-5.2) X10^6/uL Hgb 12.8 (12.0-16.0) g/dL Hct 39.2 (36-46) % MCV 86.4 (80-100) fL MCH 28.3 (26-34) PG MCHC 32.8 (30-36) % RDW 13.7 (11.6-14.8) % Plt Count 383 (150-400) X10^3/uL Neut % (Auto) 67.7 (50-75) % Lymph % (Auto) 24.8 L (25-40) % [place] % (Auto) 5.9 (3-14) % Eos % (Auto) 1.2 L (2-4) % Baso % (Auto) 0.4 (0-2) % Neut # (Auto) 8500 H (3135-1727) /uL Lymph # (Auto) 3100 (2852-4868) /uL [place] # (Auto) 700 (0-900) /uL Eos # (Auto) 100 (0-450) /uL Baso # (Auto) 100 (0-100) /uL Sodium 138 (137-145) mmol/L Potassium 4.7 (3.4-5.1) mmol/L Chloride 104 (98-107) mmol/L Carbon Dioxide 23 (22-32) mmol/L BUN 16 (7-17) mg/dL Creatinine 0.66 (0.52-1.04) mg/dL Estimated GFR > 60.0 (>60) mL/min BUN/Creatinine Ratio 24.2 H (6-22) Glucose 86 (70-100) mg/dL Calcium 9.9 (8.4-10.2) mg/dL Total Bilirubin 0.6 (0.2-1.3) mg/dL AST 45 H (14-36) IU/L ALT 25 (<35) IU/L Alkaline Phosphatase 74 (38-126) U/L Total Creatine Kinase 159 H (30-135) U/L Troponin I < 0.012 (0.01-0.034) ng/mL Total Protein 7.8 (6.3-8.2) g/dL Albumin 4.7 (3.5-5.0) g/dL Globulin 3.1 (1.7-4.1) g/dL Albumin/Globulin Ratio 1.5 (1.0-2.8) Lipase 267 (23-300) U/L TSH 3.64 (0.47-4.68) uIU/mL Ethyl Alcohol < 10 ( - 10) mg/dL Imaging Data CT scan - head: Radiologist's Impression: No acute intracranial findings ECG Data Attestation: I personally reviewed and interpreted this ECG as follows: Prior ECG tracings: not available for review Interpretation: Sinus rhythm Ventricular rate 80 Normal axis Normal QRS Normal QTC No ST T wave changes MDM Narrative Medical decision making narrative: NIH score of 1. Head CT today is unremarkable. According to review of her notes the presenting visual symptoms today do not appear to be new however there is no mention of prior issues with confusion. She does have an alcohol history in her alcohol level was 0. I do have low suspicion of alcohol withdrawal or complications from this. I did discuss the case with Dr. Layton with Neurology at [facility] who was able to review the MRI from her last admission here to the hospital. He stated that he felt there was a cortical irregularity in the occipital region on the left noted on the MRI which could be the result of a CVA at that time. There was no mention of this noted on the radiology read of that MRI. He also stated that she potentially could be having focal complex seizures based on this finding as well. This could potentially be an explanation for her waxing and waning symptoms and also her confusion this evening. He did recommend admission and MRI with and without contrast. He stated that if this MRI was unremarkable than potentially consider starting the patient on anti seizure medications. I discussed the case with Dr. Latham who is on-call for the patient's primary provider who will admit for further evaluation and treatment. I discussed the admission with the patient and her . They both expressed understanding and agreement. Discharge Plan Departure Patient Disposition: Admitted as Observation Clinical Impression: Visual field defect, Acute confusion Admit Date/Time: 03/25/21 01:57 Admit Provider: Sudha Gibson
[2021-03-25 00:31] LABS: Alanine Aminotransferase 25 IU/L (<35); Albumin 4.7 g/dL (3.5-5.0); Albumin Globulin Ratio 1.5 (1.0-2.8); Alkaline Phosphatase 74 U/L (38-126); Aspartate Aminotransferase 45 IU/L (14-36); BUN Creatinine Ratio 24.2 (6-22); Bilirubin Total 0.6 mg/dL (0.2-1.3); Blood Urea Nitrogen 16 mg/dL (7-17); Calcium 9.9 mg/dL (8.4-10.2); Carbon Dioxide 23 mmol/L (22-32); Chloride 104 mmol/L (98-107); Creatine Kinase 159 U/L (30-135); Estimated Glomerular Filt Rate > 60.0 mL/min (>60); Ethanol (ETOH) < 10 mg/dL; Globulin 3.1 g/dL (1.7-4.1); Glucose 86 mg/dL (70-100); Lipase 267 U/L (23-300); Sodium 138 mmol/L (137-145); Total Protein 7.8 g/dL (6.3-8.2)
[2021-03-25 00:32] LABS: Potassium 4.7 mmol/L (3.4-5.1)
[2021-03-25 00:41] LABS: Troponin I < 0.012 ng/mL (0.01-0.034)
[2021-03-25 00:46] LABS: CKMB % Relative Index 1.3 % (1.5-5.0); Creatine Kinase MB 1.99 ng/mL (<2.37)
[2021-03-25 00:51] LABS: HEMOLYSIS 82 (0-50)
[2021-03-25 01:16] LABS: Thyroid Stimulating Hormone 3.64 uIU/mL (0.47-4.68)
[2021-03-25] MEDS: ONDANSETRON 4 MG/2 ML INJ IV (01:18)
[2021-03-25] MEDS: ACETAMINOPHEN 325 MG TABLET 650 MG PO ×2 (02:27→09:17)
[2021-03-25 03:17] LABS: COVID19 - ADMIT (NP swab/PCR) Negative (Negative)
[2021-03-25] MEDS: GABAPENTIN 100 MG CAPSULE PO (04:29)
--- NOTE | 2021-03-25 08:23 | PM.HP.1 ---
History of Present Illness History of Present Illness Date Patient Seen: 03/25/21 Time Patient Seen: 07:50 Chief complaint: Vision Issues Narrative: Pt is a 51-year-old woman with hypertension, depression, hypothyroidism, and recent vision loss concerning for TIA versus CVA presents with worsening vision loss and confusion. The patient reports that yesterday evening she consumed about 4 alcoholic beverages. This is not more than usual for her. Around 2:00 a.m. she woke feeling confused. She states that her right upper lateral quadrant vision loss was significantly worse. Her entire body ?just did not feel right.She denies any focal weakness, slurring of speech, difficulty comprehending. Her face was not drooping. She was not however able to recall basic conversations that were had with her . EMS was contacted and the patient was brought to the emergency department for further evaluation. In the ED, head CT was completed that was negative. Neurology was contacted, who suggested her symptoms could be due to CVA versus focal complex seizures. She was then admitted for additional workup. The patient was previously admitted from 03/11 to 03/12 with similar symptoms. At that time, head CT/CTA was negative, echocardiogram was negative except for an EF of 45-50%, and head MRI showed right vertebral artery occlusion but no evidence of ischemia. The patient was ultimately discharged home. She had follow-up with ophthalmology the next week, who, after discussion with Neuro-Ophthalmology, thought that her symptoms were likely due to occipital stroke. She had follow-up with Neuro-Ophthalmology scheduled. The patient's vision changes then significantly worsened last night, prompting evaluation today. The patient denies any recent chest pain, shortness of breath, urinary incontinence or biting of tongue with recent events. She does report having a moderate headache currently located over her right eye. The pt feels that her confusion has completely resolved now. Patient History Medical History Acne Asthma Depression (~2012) Excessive drinking of alcohol Fatigue (~2012) Hyperlipidemia Hypertension Hypothyroidism (acquired) Impaired glucose tolerance Mood swings (~2012) Skin infection (vaginal after ) Surgical History History of section (1990) History of hysterectomy (12/15/11) History of laparoscopic cholecystectomy (1996) History of myomectomy (01/23/06) History of myomectomy (07/20/10) History of right breast biopsy (1989) S/P cervical polypectomy (~05/29/19) S/P gastric bypass (12/22/09) Family & Social History Family History Father Diabetes mellitus Brain aneurysm [place] (myocardial infarction) Mother Asthma Obesity Grandfather Hypertension Hx of CABG Daughter Asthma Hayfever Daughter Asthma Hayfever Social History: household members spouse,children Prior Living Arrangements House lives independently Yes caregiver/support person No Safety & Behavioral: Feels Safe in Current Yes Environment Been Physically Hurt or No Threatened By a Person Suicidal Ideation Description None Suicide Plan Description No Plan Tobacco & Substance use: Smoking Status Never smoker alcohol intake current alcohol intake frequency 3 or more drinks per day Substance Use Type does not use Meds Home Medications and Allergies Home Medications Medication Instructions Recorded Confirmed Type estradiol 0.05 mg/24 hr semiweekly See Rx Instructions .ROUTE 02/07/21 03/25/21 Rx transdermal patch .COMPLEX #8 ea bupropion HCl 200 mg PO BID 03/11/21 03/25/21 History clonidine HCl 0.15 mg PO BID 03/11/21 03/25/21 History gabapentin 100 mg PO BEDTIME PRN 03/11/21 03/25/21 History levothyroxine 75 mcg PO DAILY 03/11/21 03/25/21 History lisinopril 10 mg tablet 10 mg PO DAILY #90 tab 03/22/21 03/25/21 Rx pravastatin 10 mg tablet 10 mg PO BEDTIME #30 tab 03/22/21 03/25/21 Rx aspirin 81 mg PO DAILY #30 tab 03/25/21 Rx clopidogrel [Plavix] 75 mg PO DAILY #30 tab 03/25/21 Rx Allergies Allergy/AdvReac Type Severity Reaction Status Date / Time hydrocodone Allergy Intermediate facial Verified 03/22/21 13:19 swelling egg [EGG] Allergy Mild HIVES/WHITE Verified 03/22/21 13:19 ONLY NSAIDS (Non-Steroidal Allergy Mild Nausea Verified 03/22/21 13:19 Anti-Inflamma [NSAIDS (NON-STEROIDAL ANTI-INFLAMMA] oxycodone [OXYCODONE] Allergy Mild DECREASE Verified 03/22/21 13:19 HR AND DECREASE BP sulfamethoxazole Allergy Mild LIP Verified 03/22/21 13:19 [SULFAMETHOXAZOLE] SWELLING, FACIAL RASH, AND DERMATITIS tetracycline [TETRACYCLINE] Allergy Mild SEVERE Verified 03/22/21 13:19 SKIN SWELLING trimethoprim [TRIMETHOPRIM] Allergy Mild FACIAL Verified 03/22/21 13:19 RASH, LIP SWELLING, AND DERMATITIS Exam Vital Signs (past 8 hours): - 03/25/21 00:33 03/25/21 01:00 03/25/21 01:20 Temperature Pulse Rate 91 H 89 85 Respiratory Rate Blood Pressure 129/60 Pulse Oximetry 97 98 97 03/25/21 01:30 03/25/21 02:00 03/25/21 02:35 Temperature 97.2 F L Pulse Rate 85 84 65 Respiratory Rate 16 Blood Pressure 127/60 127/72 127/79 Pulse Oximetry 97 98 99 Oxygen Delivery Method Room Air Narrative Exam Narrative: GEN - alert, cooperative and no distress HEENT - normocephalic and atraumatic, sclera white, moist mucus membranes, throat non-erythematous NECK - FROM, no adenopathy, Thyroid is not enlarged, symmetrical and smooth, carotids pulse brisk and no JVD HEART - RRR, S1, S2 normal, no S3 or S4, no murmurs LUNGS - symmetric chest rise, no accessory muscles, clear to auscultation bilaterally ABD - flat, nondistended, normal bowel sounds, soft, nontender and no hepatomegaly, splenomegaly or masses EXT - no cyanosis, clubbing or edema SKIN - no rashes or suspicious lesions NEURO - alert and and oriented to person, place and situation, Muscle strength is 5/5 UE and LE flexors/extensors, Sensation to light touch present bilaterally, Coordination shows finger to nose, heel to salmeron, and arm roll normal bilaterally. Visual field testing reveals loss of vision right lateral superior field. Objective Labs Result Diagrams: 03/25/21 00:05 03/25/21 00:05 Labs: Laboratory Results - last 24 hr 03/25/21 03/25/21 03/25/21 00:05 00:05 00:05 WBC 12.5 H RBC 4.53 Hgb 12.8 Hct 39.2 MCV 86.4 MCH 28.3 MCHC 32.8 RDW 13.7 Plt Count 383 Neut % (Auto) 67.7 Lymph % (Auto) 24.8 L [place] % (Auto) 5.9 Eos % (Auto) 1.2 L Baso % (Auto) 0.4 Neut # (Auto) 8500 H Lymph # (Auto) 3100 [place] # (Auto) 700 Eos # (Auto) 100 Baso # (Auto) 100 Sodium 138 Potassium 4.7 Chloride 104 Carbon Dioxide 23 BUN 16 Creatinine 0.66 Estimated GFR > 60.0 BUN/Creatinine Ratio 24.2 H Glucose 86 Calcium 9.9 Total Bilirubin 0.6 AST 45 H ALT 25 Alkaline Phosphatase 74 Total Creatine Kinase 159 H CK-MB (CK-2) 1.99 CK-MB (CK-2) Rel Index 1.3 L Troponin I < 0.012 Total Protein 7.8 Albumin 4.7 Globulin 3.1 Albumin/Globulin Ratio 1.5 Lipase 267 TSH 3.64 Ethyl Alcohol < 10 SARS-CoV-2 (PCR) 03/25/21 02:25 WBC RBC Hgb Hct MCV MCH MCHC RDW Plt Count Neut % (Auto) Lymph % (Auto) [place] % (Auto) Eos % (Auto) Baso % (Auto) Neut # (Auto) Lymph # (Auto) [place] # (Auto) Eos # (Auto) Baso # (Auto) Sodium Potassium Chloride Carbon Dioxide BUN Creatinine Estimated GFR BUN/Creatinine Ratio Glucose Calcium Total Bilirubin AST ALT Alkaline Phosphatase Total Creatine Kinase CK-MB (CK-2) CK-MB (CK-2) Rel Index Troponin I Total Protein Albumin Globulin Albumin/Globulin Ratio Lipase TSH Ethyl Alcohol SARS-CoV-2 (PCR) Negative Assessment & Plan Assessment & Plan narrative: Pt is a 51-year-old woman with hypertension, depression, hypothyroidism, alcoholism and recent vision loss concerning for CVA presents with worsening vision loss and confusion. Neurology contacted from the ED, symptom suggestive of CVA vs potential focal complex seizure. 1) Vision loss and confusion: Symptoms seem most consistent with CVA. Concerning for progression with increased visual field loss. - Head MRI with and without to be completed today - Carotid duplex to be completed - Patient to remain on telemetry - Statin started at recent appointment will continue while in the hospital - Pt declines PT/OT at this time - On full dose ASA 2) HTN: - Continue home Lisionpril, Clonidine 3) Hypothyroidism: - Continue home Levothyroxine 4) Depression: - Continue home Bupropion DVT ppx: Lovenox FEN: General diet Code: Full Discharge: Imaging completed as ordered. Carotid dopplers negative. MRI showed bilateral occipital ischemic regions consistent with subacute CVA. The pt remained in sinus rhythm throughout her hospitalization. Due to age of lesions, not a candidate for acute interventions. Pt continued to decline PT/OT. She will be started on Plavix, and Aspirin switched to 81mg at d/c. She is to continue her current antihypertensives and pravastatin. Strongly encouraged her to stop drinking alcohol, which she plans to do. The pt was already referred to Neurology as an outpatient, and this will be expedited for appointment next week.
--- NOTE | 2021-03-25 08:41 | CM.DANOTE ---
Addendum entered by Pearl Herrera LPN 03/25/21 08:48: Admission status: in review: per RON RN Original Note: Discharge Planning/Care Management DCP: assessment: case received, EMR reviewed. READMIT: noted: pt was here 03/11-03/12 with a d/c to home and further outpt followup with PCP and specialists. Pt is admitted again today with similar symptoms. ER consulted with [facility] neurologist. Full dx and POC remains in process. 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 She admitted early this mornin:57 via EMS Payer: [facility] PCP: Dr. Peggy Gibson (Dr. Gibson is here today to see pt but her note is thus far in draft.) Pt is well supported by her Keith. P: DCP team will follow prn as POC unfolds to assist with any d/c needs that may arise. CM Discharge Assessment Start: 03/25/21 08:39 Freq: Status: Active Protocol: Document 03/25/21 08:39 ITV (Rec: 03/25/21 08:41 ITV [id number]) Discharge Planning Assessment Advance Directives? No History Provided By Medical Record Prior Living Arrangements House Household Members spouse Independent with ADL's Yes Is patient alert and oriented? Yes Review Status In Process
--- NOTE | 2021-03-25 08:55 | DI.US.S_ITS ---
PROCEDURE: US CAROTID DOPPLER BI INDICATIONS: VISION CHANGE; CONFUSION TECHNIQUE: Color and pulse Doppler interrogation was performed of both carotid systems, with image documentation and velocity measurements. COMPARISON: [facility], CT, CT ANGIO HEAD AND NECK, 03/11/2021, 19:21. [facility], MR, MR HEAD/BRAIN WO/W CON, 03/25/2021, 10:33. FINDINGS: Stenosis calculations are based on SRU (Society of Radiologists in Ultrasound) criteria. Right side: Brachial blood pressure: 98/74 mm Hg. Common carotid artery peak systolic velocity: 73 cm/sec. Internal carotid artery peak systolic velocity: 76 cm/sec. Internal carotid artery end diastolic velocity: 21 cm/sec. External carotid artery peak systolic velocity: 120 cm/sec. ICA/CCA peak systolic ratio: 1.0 . Pham scale imaging description: Mild plaquing versus wall thickening at the carotid bifurcation. Percent internal carotid artery stenosis: Less than 50%. Vertebral artery: Flow direction is antegrade. Left side: Brachial blood pressure: 118/70 mm Hg. Common carotid artery peak systolic velocity: 77 cm/sec. Internal carotid artery peak systolic velocity: 80 cm/sec. Internal carotid artery end diastolic velocity: 38 cm/sec. External carotid artery peak systolic velocity: 103 cm/sec. ICA/CCA peak systolic ratio: 1.0 . Pham scale imaging description: Mild plaquing versus wall thickening at the carotid bifurcation. Percent internal carotid artery stenosis: Less than 50%. Vertebral artery: Flow direction is antegrade. IMPRESSION: 1. Less than 50% internal carotid artery stenosis bilaterally. 2. Mild plaquing versus wall thickening at the carotid bifurcations bilaterally. 3. Antegrade vertebral artery flow bilaterally. Dictated by: Ulysses Alcala M.D. on 03/25/2021 at 12:46 Approved by: Ulysses Alcala M.D. on 03/25/2021 at 12:52
--- NOTE | 2021-03-25 08:55 | DI.MRI.S_ITS ---
PROCEDURE: MR HEAD/BRAIN WO/W CON INDICATIONS: vision loss, confusion TECHNIQUE: Noncontrast sagittal T1 spin echo, axial T2 fast spin echo, axial FLAIR, axial gradient echo, axial diffusion and ADC through the brain. Axial/sagittal/coronal 3-D CISS, thin-slice axial T1 spin echo with fat saturation through the orbits and skull base. After the administration of contrast, axial and coronal thin-slice T1 spin echo with fat saturation through the skull base, axial T1 spin echo with fat saturation through the brain. COMPARISON: None. FINDINGS: Image quality: Excellent. CSF spaces: Ventricles are normal in size and shape. No extra-axial fluid collections. Basal cisterns are patent. Brain: No intracranial bleeds or mass effects. There is mild curvilinear enhancement within the left posteromedial occipital lobe in the region of subacute infarction. Diffusion weighted images demonstrate a 15 mm anteroposterior by 25 mm transverse region of elevated signal intensity within the posteromedial aspect of the left inferior temporal occipital lobe, which demonstrates low ADC map and moderate FLAIR signal elevation. Additionally, there is a 25 mm focus of elevated diffusion and low ADC map signal within the right central occipital lobe, which demonstrates mild FLAIR signal elevation. Pham-white matter interface is intact. Brainstem is normal. Normal intravascular flow voids are present. Optic chiasm is within normal limits. Skull and face: Calvarial marrow signal is normal. Orbits appear normal. The extraocular muscles and optic nerve are within normal limits. Sinuses: Small left maxillary sinus retention cyst. Sinuses and mastoids otherwise appear clear. IMPRESSION: 1. Subacute, left greater than right bilateral posterior circulation infarcts as described above. Presumed luxury reperfusion within the left occipital lobe. Follow-up brain MRI with and without intravenous contrast in 3 months is recommended to ensure resolution, and to exclude underlying neoplasm. 2. Negative evaluation of the orbits. Dictated by: Dameon Valenzuela M.D. on 03/25/2021 at 11:17 Approved by: Dameon Valenzuela M.D. on 03/25/2021 at 11:25
[2021-03-25] MEDS: lisinopriL 10 MG TABLET PO (09:16)
[2021-03-25] MEDS: buPROPion SR 100 MG TAB 200 MG PO (09:16)
[2021-03-25] MEDS: ASPIRIN 325 MG TABLET PO (09:17)
[2021-03-25] MEDS: cloNIDine 0.1 MG TABLET 0.15 MG PO (09:17)
[2021-03-25] MEDS: ENOXAPARIN 40 MG/0.4 ML SYRINGE SUBCUT (09:18)
--- NOTE | 2021-03-25 10:20 | PC.NURSE ---
Assess- Patient is doing well this morning. She does state that she is still having a hard time seeing up close. She has no other symptoms. She is able to read words and sentences, no weakness in arms or legs. Complained of a headache and given tylenol and gabapentin for head discomfort. She is going down for MRI now.
== END 2021-03-25 15:35 | disposition home or self-care (01) ==
LOC: ED 01:50 → AC 01:57
PROVIDERS: Admitting Provider Family Medicine; Emergency Provider Emergency Medicine; PCP Family Medicine; Referring Provider Emergency Medicine; Visit Provider Family Medicine
DX: R41.0 Disorientation, unspecified (principal); H53.9 Unspecified visual disturbance; I10 Essential (primary) hypertension; E03.9 Hypothyroidism, unspecified; F32.9 Major depressive disorder, single episode, unspecified; Z20.822 Contact with and (suspected) exposure to COVID-19
CPT/HCPCS: 70450; 70553; 80053; 80320; 82550; 82553; 83690; 84443; 84484; 85025; 87635; 93005; 93880; 96372; 96374; 99234; 99284; C9803; G0378; J1650; J2405

== ENCOUNTER 2021-04-29 10:09 | Outpatient (RCR) | payer OTHER, SELFPAY ==
[2021-03-25 02:49] VITALS: BMI 29.2
--- NOTE | 2021-04-29 15:30 | OT.OP.EVAL ---
Visit Care Team Role Provider Type Sudha Gibson MD Attending Provider Physician Primary Care Provider Referring Provider Specialty: Family Practice Address: [address] [place] [address], [facility], [place], [address] Email: [email or web address] Occupational Therapy Initial Evaluation OT Outpatient Adult Evaluation Start: 04/29/21 15:57 Freq: Status: Active Protocol: Document 04/29/21 15:59 AMS (Rec: 04/29/21 16:02 AMS [id number]) General Information Visit Start Time 10:30 Visit Stop Time 11:25 Total Visit Minutes 55 Plan of Care Dates 04/29/21-06/24/21 Insurance Information Max 60 total PT/OT/ST/MT/Neuro combined visits per year Treatment Setting Outpatient Care Note Type Initial Evaluation Referring Physician Sudha Gibson MD Reason for Referral Visual field deficit Identification Confirmed Yes Identification Confirmed By Self and spouse Goals Treatment Education. Initiation of HEP. Bioinformatics Assistant Goals 1. Mikki will be modified independent with execution of home exercise program utilizing provided written and visual instructions from therapist. 2. Mikki will be able to identify 2 or 3 different strategies (e.g., limit visual information) to support her successful participation in meaningful activities in a variety of environments. Assessment/Plan Treatment Assessment Mikki is a 51 year-old right hand dominant female referred to outpatient OT by Sudha Gibson MD, secondary to visual field deficit d/t stroke. Medical reports indicate that Mikki was previously admitted into the ER from to 03/12 for similar symptoms and was d/c to home. Mikki was seen 03/17/21 at [facility]; report indicated that she likely suffered an occipital stroke with midline obeying on the left suggesting slight right sided lesion. 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 Mikki had follow-up appointment 04/22/21 at [facility]; exam findings indicate left occipital stroke with progression to the Espinoza loop of the left temporal lobe based on visual field, right superior quadranopsia. Findings also suggest slight involvement of the left partietal lobe and the fibers affecting left convergence. Health History form was completed for outpatient clinic; significant for blood pressure; depression; dizziness; falls; headaches; memory loss; neck pain; shingles (08/2020); vision problems; vertebral artery dissection right side. Mikki is wearing heart monitor; she has been advised to avoid heavy lifting and stress. Wearing of glasses daily; no change in prescription since medical events. PLOF: Independent w/ BADLS and IADLS ; worked as [employer]. Mikki is currently unable to work or drive personal vehicle . She denied any distal UE pain/discomfort. Mikki reports difficulty navigating busy environments and/or increased amounts of visual information. She reported becoming overwhelmed [place] evening at airport and is able to watch slower 'sports' on televsion (e.g., baseball without difficulties). She was unable to complete visual scanning worksheet w/ 91 items ; she reported visual disturbance w/ fixation on 's plaid shirt. (-) convergence observed w/ slight shift of left eye observed. She was able to correctly identify 35 out of 36 items and 40 out of 40 items w/ checking of rows on each visual scanning worksheet. Mikki positively responded to instruction on visual fixation w/ busier environments and other tools/compensatory strategies that she was instructed in. Continued outpatient OT is recommended to support Mikki's successful return to active participation in meaningful activities in a variety of environments. Comment 8 weeks Comment 1 x every 1-2 weeks Therapeutic Contents Adaptive Equipment Education, Client Education,Cognitive Skills Development,Functional Activities,Home Exercise Program,Education, Neuromuscular Re-Education, Self-Care
--- NOTE | 2021-07-20 07:58 | OT.OP.DC ---
Visit Care Team Role Provider Type Sudha Gibson MD Attending Provider Physician Primary Care Provider Referring Provider Address: [address] [place] [address], [facility], [place], [address] Email: [email or web address] OT Outpatient OT Outpatient Adult Evaluation Start: 04/29/21 15:57 Freq: Status: Active Protocol: Document 04/29/21 15:59 AMS (Rec: 04/29/21 16:02 AMS [id number]) General Information Session Time Visit Start Time 10:30 Visit Stop Time 11:25 Total Visit Minutes 55 Visit Information Plan of Care Dates 04/29/21-06/24/21 Insurance Information Max 60 total PT/OT/ST/MT/Neuro combined visits per year Setting Treatment Setting Outpatient Care Visit Type Note Type Initial Evaluation Referral Referring Physician Sudha Gbison MD Reason for Referral Visual field deficit Identification Identification Confirmed Yes Identification Confirmed By Self and spouse Goals Treatment Treatment Education. Initiation of HEP. Mcfp Goals Mcfp Goals 1. Mikki will be modified independent with execution of home exercise program utilizing provided written and visual instructions from therapist. 2. Mikki will be able to identify 2 or 3 different strategies (e.g., limit visual information) to support her successful participation in meaningful activities in a variety of environments. Assessment/Plan Assessment Treatment Assessment Mikki is a 51 year-old right hand dominant female referred to outpatient OT by Sudha Gibson MD, secondary to visual field deficit d/t stroke. Medical reports indicate that Mikki was previously admitted into the ER from 03/11/ to 03/12 for similar symptoms and was d/c to home. Mikki was seen 03/17/21 at [facility]; report indicated that she likely suffered an occipital stroke with midline obeying on the left suggesting slight right sided lesion. 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 Mikki had follow-up appointment 04/22/21 at [facility]; exam findings indicate left occipital stroke with progression to the Espinoza loop of the left temporal lobe based on visual field, right superior quadranopsia. Findings also suggest slight involvement of the left partietal lobe and the fibers affecting left convergence. Health History form was completed for outpatient clinic; significant for blood pressure; depression; dizziness; falls; headaches; memory loss; neck pain; shingles (08/2020); vision problems; vertebral artery dissection right side. Mikki is wearing heart monitor; she has been advised to avoid heavy lifting and stress. Wearing of glasses daily; no change in prescription since medical events. PLOF: Independent w/ BADLS and IADLS ; worked as [employer] Mikki is currently unable to work or drive personal vehicle . She denied any distal UE pain/discomfort. Mikki reports difficulty navigating busy environments and/or increased amounts of visual information. She reported becoming overwhelmed previous evening at airport and is able to watch slower 'sports' on televsion (e.g., baseball without difficulties). She was unable to complete visual scanning worksheet w/ 91 items ; she reported visual disturbance w/ fixation on 's plaid shirt. (-) convergence observed w/ slight shift of left eye observed. She was able to correctly identify 35 out of 36 items and 40 out of 40 items w/ checking of rows on each visual scanning worksheet. Mikki positively responded to instruction on visual fixation w/ busier environments and other tools/compensatory strategies that she was instructed in. Continued outpatient OT is recommended to support Mikki's successful return to active participation in meaningful activities in a variety of environments. Plan Comment 8 weeks Comment 1 x every 1-2 weeks Therapeutic Contents Adaptive Equipment Education, Client Education,Cognitive Skills Development,Functional Activities,Home Exercise Program,Education, Neuromuscular Re-Education, Self-Care Sensory Assessment Sensory Profile2 Functional Wrist/Hand Scan Hand Side OT Outpatient Treatment Note - Adult Start: 04/29/21 15:57 Freq: Status: Active Protocol: Document 07/20/21 07:55 [facility] (Rec: 07/20/21 07:57 [facility] [id number]) OT Outpatient Adult Treatment Note Visit Information Plan of Care Dates 04/29/21-06/24/21 Visit Type Note Type Discharge Summary - Subjective Observations Mikki has not been seen in the outpatient setting since time of initial evaluation (which was completed on 04/29/21) and outpatient OT POC 06/24; recommend d/c from OT. - Objective Mcfp Goals ALL GOALS D/C of 07/20/21 1. Mikki will be modified independent with execution of home exercise program utilizing provided written and visual instructions from therapist. 2. Mikki will be able to identify 2 or 3 different strategies (e.g., limit visual information) to support her successful participation in meaningful activities in a variety of environments. - - Assessment Assessment of Improvement Mikki has not been seen in the outpatient setting since time of initial evaluation (which was completed on 04/29/21) and outpatient OT POC 06/24; recommend d/c from OT. - Plan Therapy Recommendations Discharge from Occupational Therapy
== END 2021-08-02 09:57 ==
LOC: OT 10:09
PROVIDERS: PCP Family Medicine; Referring Provider Family Medicine; Visit Provider Family Medicine
DX: H53.40 Unspecified visual field defects (principal)
CPT/HCPCS: 97165; 97530

== ENCOUNTER → 2021-06-27 08:45 | Outpatient (CLI) | payer OTHER, SELFPAY ==
[2021-03-25 02:49] VITALS: BMI 29.2
--- NOTE | 2021-06-27 | DI.MRI.S_ITS ---
PROCEDURE: MR STROKE Pre- and post-contrast brain MRI, non-contrast brain MR angiogram, pre- and postcontrast neck MR angiogram INDICATIONS: Personal history of transient ischemic attack TECHNIQUE: Brain: Noncontrast axial T1 spin echo, axial T2 fast spin echo, sagittal and axial FLAIR, coronal T2 fast spin echo, axial gradient echo, axial diffusion and ADC through the brain. After the administration of contrast, axial 3D VIBE of the cranial vasculature and brain. Brain MRA: Non-contrast 3-D time of flight MR angiogram, with multiple ckwivbl-rkfydlskt-znacqeunwf (MIP) reformats performed. Neck MRA: Axial and sagittal TruFISP through the neck. Coronal dynamic MR angiogram during administration of contrast in the arterial and venous phases, with 3-dimenstional pdbspym-oitxyqgqa-oqvyvcjnqs (MIP) reformats constructed from subtraction images. COMPARISON: [facility], US, US CAROTID DOPPLER BI, 03/25/2021, 11:16 the previously seen. [facility], CT, CT HEAD/BRAIN WO CON, 03/25/2021, 0:25. [facility], MR, MR HEAD/BRAIN WO/W CON, 03/25/2021, 10:33. [facility], CT, CT ANGIO HEAD AND NECK, 03/11/2021, 19:21. [facility], MR, MR STROKE, 03/12/2021, 7:36. FINDINGS: Image quality: Excellent. BRAIN: CSF spaces: Ventricles are normal in size and shape. Basal cisterns are patent. No extra-axial fluid collections. Brain: There is seen focal volume loss with increased T2 weighted signal and encephalomalacia involving the inferior anterior left occipital lobe. No abnormal enhancement can be seen within this region. No abnormal diffusion-weighted signal can be seen at this site. No abnormal diffusion-weighted signal is seen elsewhere. No intracranial bleeds or mass effects. Pham-white matter interface is normal. Brainstem appears normal. Normal intravascular flow voids are present. No abnormal intracranial enhancement. Note is made of age-appropriate brain parenchymal volume loss and chronic small vessel ischemic changes. Skull and face: Calvarial marrow signal is normal. Orbits appear normal. Sinuses: An apparent mucous retention cysts can be seen within the left maxillary sinus posteriorly. Sinuses and mastoids are otherwise clear. BRAIN MR ANGIOGRAM: Anterior circulation: Intracranial internal carotid arteries are normal in size and enhancement. The flow within the paired anterior cerebral arteries is normal and symmetric. The flow within the middle cerebral arteries is normal and symmetric. The anterior communicating artery is seen. No stenoses, occlusions, or aneurysms. Posterior circulation: Areas of near high-grade stenosis with poor flow can be seen within the right V4 segment. The left V4 segment is within normal limits. No abnormality of the basilar artery is seen. The flow within the posterior cerebral arteries is normal and symmetric. No stenoses, occlusions, or aneurysms. NECK MR ANGIOGRAM: Carotids: Great vessels demonstrate a conventional anatomy as they arise from the aortic arch. The origins of the common carotid arteries appear patent. The calibers and courses of both common carotid arteries are normal. The bifurcation regions appear normal bilaterally. The internal carotid arteries demonstrate normal course and caliber. Posterior circulation: There is poor flow seen within the proximal right vertebral artery, with occlusion again seen within its midportion. There is reconstitution of flow of the right vertebral artery at the V3 segment. The left vertebral artery is unremarkable. Miscellaneous: Subclavian arteries appear patent. Pre-contrast images through the neck show no soft tissue abnormalities. IMPRESSION: BRAIN MRI: Evolution of the previously seen infarction involving the anterior inferior left occipital lobe. No findings of acute or subacute infarction can be seen. Note is made of age-appropriate brain parenchymal volume loss and chronic small vessel ischemic changes. BRAIN MR ANGIOGRAM: There is poor flow seen within the right V4 segment. NECK MR ANGIOGRAM: There is poor flow seen within the right proximal vertebral artery, with occlusion seen within its midportion. Within the distal right vertebral artery, there is reconstitution of flow seen, yet with reduced flow compared to the left side. The flow within the right vertebral artery overall appears decreased compared to the prior stroke protocol MRI dated 03/12/2021. Dictated by: Damaso Wakefield M.D. on 06/27/2021 at 10:29 Approved by: Damaso Wakefield M.D. on 06/27/2021 at 10:40
== END ==
PROVIDERS: PCP Family Medicine; Referring Provider Psychiatry & Neurology Neurology; Visit Provider Psychiatry & Neurology Neurology
DX: Z09 Encounter for follow-up examination after completed treatment for conditions other than malignant neoplasm (principal); I65.01 Occlusion and stenosis of right vertebral artery; Z86.73 Personal history of transient ischemic attack (TIA), and cerebral infarction without residual deficits
CPT/HCPCS: 70548; 70553; A9579

== ENCOUNTER → 2021-07-21 11:08 | Outpatient (CLI) | payer OTHER, SELFPAY ==
[2021-03-25 02:49] VITALS: BMI 29.2
== END ==
PROVIDERS: PCP Family Medicine; Referring Provider Internal Medicine; Visit Provider Internal Medicine
DX: Z23 Encounter for immunization (principal)
CPT/HCPCS: 90471; 90682

== ENCOUNTER → 2021-09-26 07:17 | Outpatient (CLI) | payer OTHER, SELFPAY ==
[2021-03-25 02:49] VITALS: BMI 29.2
--- NOTE | 2021-09-26 07:19 | DI.MRI.S_ITS ---
PROCEDURE: MR HEAD/BRAIN WO/W CON INDICATIONS: f/u MRI CVA TECHNIQUE: Noncontrast axial T1 spin echo, axial T2 fast spin echo, sagittal and axial FLAIR, coronal T2 fast spin echo, axial gradient echo, axial diffusion and ADC through the brain. After the administration of contrast, axial and coronal 3D VIBE or T1 spin echo with fat saturation through the brain. COMPARISON: [facility], MR, MR STROKE, 03/12/2021, 7:36. [facility], MR, MR STROKE, 06/27/2021, 9:26. [facility], MR, MR HEAD/BRAIN WO/W CON, 03/25/2021, 10:33. FINDINGS: Image quality: Excellent. CSF Spaces: Basal cisterns are patent. No extra-axial fluid collections. Ventricles are normal in size and shape. Brain: No midline shift. No intracranial bleeds or masses. No abnormal intracranial enhancement. The brainstem appears normal. Diffusion-weighted images demonstrate no acute ischemic insults. Findings are not significantly changed from the most recent prior study. There is volume loss and gliosis again noted indicating the presence of a now chronic infarct in the left inferior anterior occipital lobe and very minimal residua of right occipital infarct with minimal signal abnormality present. Normal intravascular flow voids are present. Brain parenchyma is otherwise unremarkable. Skull and face: Calvarial marrow is normal in signal. Orbits appear normal. Sinuses: Sinuses and mastoids appear clear. IMPRESSION: 1. Chronic bilateral occipital infarcts, relatively small on the left and small on the right. 2. Brain parenchyma is otherwise unremarkable. No evidence of acute stroke, hemorrhage, or mass. Dictated by: Paul Maldonado M.D. on 09/26/2021 at 9:54 Approved by: Paul Maldonado M.D. on 09/26/2021 at 10:00
== END ==
PROVIDERS: PCP Family Medicine; Referring Provider Family Medicine; Visit Provider Family Medicine
DX: I63.9 Cerebral infarction, unspecified (principal); H53.40 Unspecified visual field defects; I10 Essential (primary) hypertension
CPT/HCPCS: 70553

== ENCOUNTER → 2021-09-29 11:30 | Outpatient (CLI) | payer OTHER, SELFPAY ==
[2021-03-25 02:49] VITALS: BMI 29.2
--- NOTE | 2021-09-29 11:31 | DI.MRI.S_ITS ---
PROCEDURE: MR ANGIO NECK W CON INDICATIONS: f/u vertebral artery dissection TECHNIQUE: Axial and sagittal TruFISP through the neck. Coronal dynamic MRA after the administration of contrast in the arterial and venous phases, with rotating 3-dimensional maximum intensity projection (MIP) reformats constructed from subtraction images. COMPARISON: [facility], MR, MR STROKE, 06/27/2021, 9:26. FINDINGS: Image quality: Excellent. Carotid system: Great vessels demonstrate a conventional anatomy as they arise from the aortic arch. The origins of the common carotid arteries appear normal. The calibers and courses of the common carotid arteries are likewise normal. The carotid bifurcations appear normal bilaterally. The internal carotid arteries are widely patent up to the [place] of [place]. Posterior circulation: Right vertebral artery remains occluded at the mid interforaminal V2 segment. There is quite diminished flow in the pre foraminal segment as well. Persistent reconstitution of flow in the origin of the V3 segment, similar prior exam Miscellaneous: Subclavian arteries are patent throughout. Pre-contrast images through the neck demonstrate no soft tissue abnormalities. IMPRESSION: 1. Persistent occlusion of the right V2 vertebral artery with distal reconstitution, similar to the prior exam. Any quantitative measurements of ica stenosis were performed using NASCET criteria. Approved by: Mike Sánchez M.D. on 09/29/2021 at 16:38
== END ==
PROVIDERS: PCP Family Medicine; Referring Provider Family Medicine; Visit Provider Family Medicine
DX: I77.74 Dissection of vertebral artery (principal); I65.01 Occlusion and stenosis of right vertebral artery
CPT/HCPCS: 70548; A9579

== ENCOUNTER → 2021-10-26 16:25 | Outpatient (CLI) | payer OTHER, SELFPAY ==
[2021-10-18 15:49] VITALS: BMI 29.2
[2021-10-26 17:44] LABS: Influenza A - CEPHEID Flu A NEGATIVE (NEGATIVE); Influenza B - CEPHEID Flu B NEGATIVE (NEGATIVE)
[2021-10-26 18:34] LABS: COVID-19 CEPHEID PCR (VTM/NP) Negative (Negative)
== END ==
PROVIDERS: PCP Family Medicine; Referring Provider Family Medicine; Visit Provider Family Medicine
DX: Z20.822 Contact with and (suspected) exposure to COVID-19 (principal); R52 Pain, unspecified
CPT/HCPCS: 87070; 87502; U0003

== ENCOUNTER → 2022-02-20 07:26 | Outpatient (CLI) | payer OTHER, SELFPAY ==
[2021-10-18 15:49] VITALS: BMI 29.2
--- NOTE | 2022-02-20 | DI.MG.S_ITS ---
BILATERAL DIGITAL SCREENING MAMMOGRAM 3D/2D WITH CAD: 02/20/2022 CLINICAL: Routine screening. Comparison is made to exams dated: 03/23/2020 mammogram, 01/27/2019 mammogram, and 01/24/2018 mammogram - [facility]. There are scattered fibroglandular elements in both breasts. Current study was also evaluated with a Computer Aided Detection (CAD) system. No significant masses, calcifications, or other findings are seen in either breast. There has been no significant interval change. IMPRESSION: NEGATIVE There is no mammographic evidence of malignancy. A 1 year screening mammogram is recommended. This exam was interpreted at Station ID: [id number]. NOTE: For mammograms, a report in lay terms will be sent to the patient. Approximately 15% of breast malignancies will not be visualized mammographically. In the management of a palpable breast mass, a negative mammogram must not discourage biopsy of a clinically suspicious lesion. Electronically Signed By: Jass Davey acr/noemi:02/20/2022 10:06:51 letter sent: Normal Exam ACR BI-RADS Category 1: Negative [id number]
== END ==
PROVIDERS: PCP Family Medicine; Referring Provider Family Medicine; Visit Provider Family Medicine
DX: Z12.31 Encounter for screening mammogram for malignant neoplasm of breast (principal)
CPT/HCPCS: 77063; 77067

== ENCOUNTER 2022-02-24 01:15 | Emergency (ER) | payer OTHER, SELFPAY ==
[2021-10-18 15:49] VITALS: BMI 29.2
--- NOTE | 2022-02-24 01:25 | ED_ITS ---
HPI - Head Injury General Chief complaint: Fall Stated complaint: CUT ON FOREHEAD RIGHT SIDE Time Seen by Provider: 02/24/22 01:25 Source: patient Mode of arrival: Ambulatory Limitations: no limitations History of Present Illness HPI Narrative: This is a 52-year-old female on aspirin daily, medication for hypertension, dyslipidemia and hypothyroidism, prior vertebral artery occlusionwith ground level fall in the shower. Patient states she did have some alcohol today. She does not recall if she fell and hit her head or if she passed out. Patient has 2 lacerations just above her right eyebrow. She is unsure if her tetanus is up-to-date. She states she does have a headache at this time. She denies neck or back pain. No chest pain or shortness of breath. No nausea or vomiting. No other GI or urinary symptoms. She has some cramping in her leg and some small cuts on her lower legs. Related Data Home Medications Medication Instructions Recorded Confirmed atorvastatin 40 mg tablet 40 mg PO DAILY 05/06/21 06/17/21 lisinopril 10 mg tablet 10 mg PO DAILY 05/06/21 06/17/21 Previous Rx's Medication Instructions Recorded aspirin 81 mg tablet,delayed 81 mg PO DAILY #30 tab 03/25/21 release hydroxyzine HCl 25 mg tablet 25 mg PO TID PRN #30 tab 05/06/21 clopidogrel 75 mg tablet (Plavix) 75 mg PO DAILY #30 tab 07/05/21 bupropion HCl 200 mg tablet,12 hr See Rx Instructions .ROUTE 11/07/21 sustained-release .COMPLEX #180 tab clonidine HCl 0.1 mg tablet See Rx Instructions .ROUTE 11/07/21 .COMPLEX #180 tab gabapentin 100 mg capsule 100 mg PO BEDTIME PRN #30 cap 11/09/21 estradiol 0.05 mg/24 hr semiweekly See Rx Instructions .ROUTE 12/05/21 transdermal patch (Katrin) .COMPLEX #8 ea levothyroxine 75 mcg tablet See Rx Instructions .ROUTE 01/30/22 .COMPLEX #90 tab fluoxetine 40 mg capsule See Rx Instructions .ROUTE 02/13/22 .COMPLEX #30 cap Allergies Allergy/AdvReac Type Severity Reaction Status Date / Time hydrocodone Allergy Intermediate facial Verified 05/06/21 10:58 swelling egg [EGG] Allergy Mild HIVES/WHITE Verified 05/06/21 10:58 ONLY NSAIDS (Non-Steroidal Allergy Mild Nausea Verified 05/06/21 10:58 Anti-Inflamma [NSAIDS (NON-STEROIDAL ANTI-INFLAMMA] oxycodone [OXYCODONE] Allergy Mild DECREASE Verified 05/06/21 10:58 HR AND DECREASE BP sulfamethoxazole Allergy Mild LIP Verified 05/06/21 10:58 [SULFAMETHOXAZOLE] SWELLING, FACIAL RASH, AND DERMATITIS tetracycline [TETRACYCLINE] Allergy Mild SEVERE Verified 05/06/21 10:58 SKIN SWELLING trimethoprim [TRIMETHOPRIM] Allergy Mild FACIAL Verified 05/06/21 10:58 RASH, LIP SWELLING, AND DERMATITIS Review of Systems Review of Systems ROS Unobtainable: All systems reviewed & are unremarkable except as noted in HPI and below Patient History Medical History Acne Asthma CVA (cerebral vascular accident) Depression (~2012) Excessive drinking of alcohol Fatigue (~2012) Hyperlipidemia Hypertension Hypothyroidism (acquired) Impaired glucose tolerance Mood swings (~2012) Skin infection (vaginal after ) Surgical History History of section (1990) History of hysterectomy (12/15/11) History of laparoscopic cholecystectomy (1996) History of myomectomy (01/23/06) History of myomectomy (07/20/10) History of right breast biopsy (1989) S/P cervical polypectomy (~05/29/19) S/P gastric bypass (12/22/09) Family History Father Diabetes mellitus Brain aneurysm [place] (myocardial infarction) Mother Asthma Obesity Grandfather Hypertension Hx of CABG Daughter Asthma Hayfever Daughter Asthma Hayfever Social History marital status: number of children: 2 household members: spouse lives independently: Yes caregiver/support person: No housing: house occupational status: employed seatbelt use: always Smoking Status: Never smoker alcohol intake: current substance use type: does not use Smoking Status: Never smoker alcohol intake frequency: 3 or more drinks per day Substance Use Type: does not use Exam Narrative Exam Narrative: GEN: Patient appears in mild distress. HEAD: Patient has a 1.5 cm semi circular laceration above the right brow with a adjacent 0.5 cm laceration approximately 4 mm of tissue in between and 3rd laceration that is 0.5cm or less at the right upper brow below the eyebrow, there is ecchymosis above the brow, no raccoon/Zuluaga sign. NECK: Nontender, painless range of motion, trachea midline Negative for Nexus criteria, there is no midline line tenderness, distracting injury, altered mental status, neuro deficit, positive for recent EtOH. EYES: PERRLA, EOMI ENT: External inspection normal except as stated above, trachea is midline, TM's are normal no hemotypanum, Nares are clear, no septal hematoma, no dental or oral injury, airway is normal and with normal occlusion, No bony tenderness RESP: Chest is nontender and has symmetric movement, no ecchymosis, breath sounds are normal no crackles, wheezes or rales CVS: Heart sounds are normal, no murmur noted, No JVD. ABG/GI: Nontender, soft, normal bowel sounds, no distention, no organomegaly, pelvic rock is negative NEURO: Oriented AOx3, neuro is grossly intact, sensation and motor is normal all 4 extremities moving, cranial nerves II through XII are intact, GCS is 15, normal gait. PSYCH: Normal mood and affect SKIN: Intact, warm and dry, no crepitus and without decubitus BACK: No CVA tenderness, no vertebral tenderness, no step-off's, no crepitus EXT: Patient has several small superficial lacerations on anterior shins bilaterally, hips are nontender, no pedal edema, normal color and temperature, normal range of motion of extremities with normal tendon exam, 2+ pulses in all four extremities Initial Vital Signs Initial Vital Signs: Vital Signs Temperature 97.6 F 02/24/22 01:27 Pulse Rate 69 02/24/22 01:27 Respiratory Rate 17 02/24/22 01:27 Blood Pressure 93/51 L 02/24/22 01:27 Pulse Oximetry 97 02/24/22 01:27 Procedures Laceration Repair Laceration 1: Time of procedure: 03:01 Site: face (right) Side (If applicable): right Size (cm): 1.5 Description: linear and irregular Depth: simple, single layer Local Anesthetic: lidocaine 1% and with bicarb Amount of anesthesia used (mL): 3 Pre-repair: wound explored, irrigated extensively and deep structures intact Skin layer closed with: vicryl Skin layer suture size: 5-0 Number of sutures: 5 Technique: simple, interrupted Laceration 2: Time of procedure: 03:24 Site: face Side (If applicable): right Size (cm): 1 Description: linear and stellate Depth: simple, single layer Local Anesthetic: lidocaine 1% Amount of anesthesia used (mL): 1 Pre-repair: wound explored, irrigated extensively and deep structures i ntact Skin layer closed with: vicryl Skin layer suture size: 5-0 Number of sutures: 2 Technique: simple, interrupted Laceration 3: Time of procedure: 03:25 Site: face Side (If applicable): right Size (cm): 0.5 Description: linear Depth: simple, single layer Local Anesthetic: lidocaine 1% and with bicarb Amount of anesthesia used (mL): 0.5 Pre-repair: wound explored, irrigated extensively and deep structures intact Skin layer closed with: vicryl Skin layer suture size: 5-0 Number of sutures: 1 Technique: simple, interrupted Course Orders Ordered: ED Orders 02/24/22 01:31 CT cervical spine wo con Stat CT head/brain wo con Stat 02/24/22 01:38 EKG-12 Lead Stat 02/24/22 01:40 Complete Blood Count AUTO DIFF Stat Comprehensive Metabolic Panel Stat ETOH [Ethanol (ETOH)] Stat Lipase Stat Troponin & CK Cardiac Panel Stat 02/24/22 02:05 Partial Thromboplastin Time Stat Prothrombin Time INR Stat 02/24/22 03:31 Consult to ANIMAL CARE TECHNICIAN - Printing Press Machine Operator Stat Discontinued Medications Diphtheria/Tetanus/Acell Pertussis (Tet,Diph,Pertuss(Acell),Vac/Pf 0.5 Ml Syringe) 0.5 ml IM .ONCE ONE Stop: 02/24/22 01:32 Last Admin: 02/24/22 01:55 Dose: 0.5 ml Documented by: [email or web address] Sodium Chloride (Normal Saline 0.9%) 1,000 mls @ 1,000 mls/hr IV BOLUS ONE Stop: 02/24/22 02:30 Last Infusion: 02/24/22 03:08 Dose: 0 mls/hr Documented by: [email or web address] Admin: 02/24/22 01:57 Dose: 1,000 mls/hr Documented by: [email or web address] Lidocaine/Sodium Bicarbonate (Lido 1%/Sod Bicarb 8.4% (10ml) 10 Ml Syringe) 10 ml INJ NOW ONE Stop: 02/24/22 01:33 Last Admin: 02/24/22 03:19 Dose: 10 ml Documented by: [email or web address] Vital Signs Vital signs: Vital Signs - 8 hr 02/24/22 01:27 02/24/22 02:08 02/24/22 03:44 Temperature 97.6 F Pulse Rate 69 78 Respiratory Rate 17 16 Blood Pressure 93/51 L 91/46 L 103/64 Pulse Oximetry 97 98 MDM - Head Injury Lab Data Result diagrams: 02/24/22 01:40 02/24/22 01:40 Labs: Lab Results 02/24/22 02/24/22 02/24/22 Range/Units 01:40 01:40 01:40 WBC 10.6 (4.5-11.0) X10^3/uL RBC 4.20 (4.0-5.2) X10^6/uL Hgb 9.7 L (12.0-16.0) g/dL Hct 30.9 L (36-46) % MCV 73.5 L (80-100) fL MCH 23.1 L (26-34) PG MCHC 31.4 (30-36) % RDW 17.0 H (11.6-14.8) % Plt Count 397 (150-400) X10^3/uL Neut % (Auto) 60.8 (50-75) % Lymph % (Auto) 25.3 (25-40) % [place] % (Auto) 11.4 (3-14) % Eos % (Auto) 1.9 L (2-4) % Baso % (Auto) 0.6 (0-2) % Neut # (Auto) 6500 (8809-0679) /uL Lymph # (Auto) 2700 (6898-2984) /uL [place] # (Auto) 1200 H (0-900) /uL Eos # (Auto) 200 (0-450) /uL Baso # (Auto) 100 (0-100) /uL PT (10.1-12.7) SECONDS INR (0.9-1.3) APTT (26.4-36.2) SECONDS Sodium 134 L (137-145) mmol/L Potassium 3.8 (3.4-5.1) mmol/L Chloride 103 (98-107) mmol/L Carbon Dioxide 17 L (22-32) mmol/L BUN 14 (7-17) mg/dL Creatinine 1.18 H (0.52-1.04) mg/dL Estimated GFR 56 L (>60) mL/min BUN/Creatinine Ratio 11.9 (6-22) Glucose 78 (70-100) mg/dL Calcium 8.6 (8.4-10.2) mg/dL Total Bilirubin 0.5 (0.2-1.3) mg/dL AST 46 H (14-36) IU/L ALT 35 H (<35) IU/L Alkaline Phosphatase 58 (38-126) U/L Total Creatine Kinase 401 H (30-135) U/L CK-MB (CK-2) 5.14 H (<2.37) ng/mL CK-MB (CK-2) Rel Index 1.3 L (1.5-5.0) % Troponin I < 0.012 (0.01-0.034) ng/mL Total Protein 6.9 (6.3-8.2) g/dL Albumin 4.2 (3.5-5.0) g/dL Globulin 2.7 (1.7-4.1) g/dL Albumin/Globulin Ratio 1.6 (1.0-2.8) Lipase 307 H (23-300) U/L Ethyl Alcohol ( - 10) mg/dL 02/24/22 02/24/22 Range/Units 01:40 02:05 WBC (4.5-11.0) X10^3/uL RBC (4.0-5.2) X10^6/uL Hgb (12.0-16.0) g/dL Hct (36-46) % MCV (80-100) fL MCH (26-34) PG MCHC (30-36) % RDW (11.6-14.8) % Plt Count (150-400) X10^3/uL Neut % (Auto) (50-75) % Lymph % (Auto) (25-40) % [place] % (Auto) (3-14) % Eos % (Auto) (2-4) % Baso % (Auto) (0-2) % Neut # (Auto) (0251-9668) /uL Lymph # (Auto) (9521-9640) /uL [place] # (Auto) (0-900) /uL Eos # (Auto) (0-450) /uL Baso # (Auto) (0-100) /uL PT 13.1 H (10.1-12.7) SECONDS INR 1.2 (0.9-1.3) APTT 24 L D (26.4-36.2) SECONDS Sodium (137-145) mmol/L Potassium (3.4-5.1) mmol/L Chloride (98-107) mmol/L Carbon Dioxide (22-32) mmol/L BUN (7-17) mg/dL Creatinine (0.52-1.04) mg/dL Estimated GFR (>60) mL/min BUN/Creatinine Ratio (6-22) Glucose (70-100) mg/dL Calcium (8.4-10.2) mg/dL Total Bilirubin (0.2-1.3) mg/dL AST (14-36) IU/L ALT (<35) IU/L Alkaline Phosphatase (38-126) U/L Total Creatine Kinase (30-135) U/L CK-MB (CK-2) (<2.37) ng/mL CK-MB (CK-2) Rel Index (1.5-5.0) % Troponin I (0.01-0.034) ng/mL Total Protein (6.3-8.2) g/dL Albumin (3.5-5.0) g/dL Globulin (1.7-4.1) g/dL Albumin/Globulin Ratio (1.0-2.8) Lipase (23-300) U/L Ethyl Alcohol 83 H ( - 10) mg/dL Imaging Data CT scan - head: Radiologist's Impression: [address] [address] [address] Scan Report Signed Patient: Radha Valera MR#: [id number] : 1970 Acct:[id number] Age/Sex: 52 / F Date of Service: 02/24/22 Loc: ED Accession Number: [id number] ?? Procedure: CT head/brain wo con Ordering Provider: Thalia Yen D.O. PROCEDURE:? CT HEAD/BRAIN WO CON ? INDICATIONS:? fall, head injury, etoh ? TECHNIQUE:? Noncontrast 4.5 mm thick angled axial sections acquired from the foramen magnum to the vertex, with coronal and sagittal reformats.? For radiation dose reduction, the following was used:? automated exposure control, adjustment of mA and/or kV according to patient size.? ? COMPARISON:? [facility], CT, CT HEAD/BRAIN WO CON, 03/25/2021, 0:25. ? FINDINGS:? Image quality:? Excellent.? ? CSF spaces:? Basal cisterns are patent.? No extra-axial fluid collections.? Ventricles are normal in size and shape.? ? Brain:? No intracranial hemorrhage, mass, or mass effect.? There is a region of encephalomalacia involving the medial left occipital lobe consistent with sequelae of a prior infarct.? Pham-white matter interface otherwise appears preserved.? ? Skull and face:? Calvarium and visualized facial bones are intact, without suspicious lesions.? ? Sinuses:? Visualized sinuses and mastoids are clear.? ? IMPRESSION:? ? 1. No acute intracranial abnormality. ? 2. Left occipital lobe encephalomalacia consistent with sequelae of a prior infarct.? ? Dictated by: Americo Garvey M.D. on 02/24/2022 at 2:07 ? ? Approved by: Americo Garvey M.D. on 02/24/2022 at 2:09?? CT - cervical spine: Radiologist's Impression: [place] [address] CT Scan Report Signed Patient: Radha Valera MR#: [id number] : 1970 Acct:[id number] Age/Sex: 52 / F Date of Service: 02/24/22 Loc: ED Accession Number: [id number] ?? Procedure: CT cervical spine wo con Ordering Provider: Thalia Yen D.O. PROCEDURE:? CT CERVICAL SPINE WO CON ? INDICATIONS:? fall, head injury, etoh ? TECHNIQUE:? Noncontrast 3 mm thick sections acquired from the skull base to the T4 level.? Sagittal and coronal reformats were then constructed.? For radiation dose reduction, the following was used:? automated exposure control, adjustment of mA and/or kV according to patient size.? ? COMPARISON:? [facility], CT, CT ANGIO HEAD AND NECK, 03/11/2021, 19:21. ? FINDINGS:? Image quality:? Excellent.? ? Bones:? No fractures or subluxation.? There is slight reversal the cervical lordosis centered at C5.? Multilevel degenerative disc disease demonstrated including moderate to severe degeneration in the mid cervical spine.? There is also moderate multilevel facet arthropathy.? Visualized superior ribs are intact.? ? Soft tissues:? Prevertebral soft tissues are normal in thickness.? No para vertebral hematomas.? No apical pneumothoraces.? ? IMPRESSION:? ? 1. No fracture or subluxation. ? 2. Multilevel degenerative changes throughout the cervical spine.? ? The ? Dictated by: Americo Garvey M.D. on 02/24/2022 at 2:09 ? ? Approved by: Americo Garvey M.D. on 02/24/2022 at 2:11? ECG Data Attestation: I personally reviewed and interpreted this ECG as follows: Prior ECG tracings: available for review Interpretation: Sinus bradycardia, rate of 57 CO 138 QRS of 96 QTC of 441. No acute ST elevation depression appreciated. Nonspecific change. Patient has priors from 03/25/2021 which appears similar. [facility] Narrative Medical decision making narrative: This is a 52-year-old female who had either a syncopal episode or fall with loss of consciousness. Patient states she has had some alcohol this evening she was in the shower when she fell she does not remember landing. She does have a laceration over her right upper eyebrow. Head CT and C-spine are negative. Patient does not have any acute EKG changes. Her hemoglobin is 9.7 and she has a microcytic anemia comparison to year ago in March of 2021 she was 12.8. Patient's has a bump in her creatinine, CO2 is 17 with a sodium of 134, normal glucose. AST ALT are very mildly elevated. Troponin shows no acute change. Alcohol is elevated at 83, patient is interested in resources for treatment. ANIMAL CARE TECHNICIAN was given contact information to reach out to the patient and patient permission was given. Patient had her lacerations repaired. She is able to ambulate safely in the department without any additional episodes and was discharged home with plan for follow-up and repeat hemoglobin and creatinine. Discharge Plan Departure Patient Disposition: Home Clinical Impression: Facial laceration, Anemia, Creatinine elevation Instructions: Anemia Activity Restrictions/Additional Instructions: Follow-up with your physician for recheck, your hemoglobin is low today in comparison to the last checked in March. Your creatinine or renal function is also slightly elevated. Talk with your physician to repeat these labs and make sure they are not dropping or changing. And to be fully evaluated for the cause of your anemia. I would recommend taking an iron supplement in the short term. Your contact information was last with our ANIMAL CARE TECHNICIAN for contact in the next several days for resources for alcohol use. They should reach out to you in the next 1- 2 days. If you prefer you can call the ER at [phone] and asked for Zen or Masha thapa between noon and 8pm Sunday through Sunday. You may continue home medications as prescribed. Wound Care: Your sutures are absorbable. They do not have to be removed unless they are still present in 7 days. Keep wound(s) clean and dry. Wash daily with soap and water only. Do not use over the counter products (alcohol or peroxide)on the wounds unless instructed by a physician. Make sure to avoid sun, protect your skin with hats and once your incisions have healed regular sunscreen particularly during the spring and summer months. If wound condition worsens (increased/expanding redness, developing fluid blisters, or worsening pain), either contact your doctor for an urgent re- assessment , or return to the Emergency Department. Return to the Emergency Department for any new or worsening symptoms. Return if fever greater than 100.4 Fahrenheit, increased swelling, increasing pain or worsening symptoms such as increased discharge or spreading redness. Severe headaches, altered mental status, new neck, back chest pain, shortness of breath, persistent vomiting, new numbness tingling or weakness or other new or concerning symptoms. Prescriptions: No Action atorvastatin 40 mg tablet 40 mg PO DAILY 0RF lisinopril 10 mg tablet 10 mg PO DAILY 0RF hydroxyzine HCl 25 mg tablet 25 mg PO TID PRN (Reason: anxiety) Qty: 30 2RF clopidogrel [Plavix] 75 mg tablet 75 mg PO DAILY Qty: 30 2RF bupropion HCl 200 mg tablet sustained-release 12 hr See Rx Instructions .ROUTE .COMPLEX Qty: 180 1RF Dose Instruction: TAKE 1 TABLET BY MOUTH TWICE DAILY Rx Instructions: TAKE 1 TABLET BY MOUTH TWICE DAILY clonidine HCl 0.1 mg tablet See Rx Instructions .ROUTE .COMPLEX Qty: 180 3RF Dose Instruction: TAKE 1 AND 1/2 TABLETS BY MOUTH TWICE DAILY Rx Instructions: TAKE 1 AND 1/2 TABLETS BY MOUTH TWICE DAILY gabapentin 100 mg capsule 100 mg PO BEDTIME PRN (Reason: pain) Qty: 30 3RF estradiol [Katrin] 0.05 mg/24 hr patch semiweekly See Rx Instructions .ROUTE .COMPLEX Qty: 8 4RF Dose Instruction: APPLY 1 NEW PATCH TWICE A WEEK Rx Instructions: APPLY 1 NEW PATCH TWICE A WEEK levothyroxine 75 mcg tablet See Rx Instructions .ROUTE .COMPLEX Qty: 90 0RF Dose Instruction: TAKE 1 TABLET BY MOUTH EVERY DAY Rx Instructions: TAKE 1 TABLET BY MOUTH EVERY DAY fluoxetine 40 mg capsule See Rx Instructions .ROUTE .COMPLEX Qty: 30 5RF Dose Instruction: TAKE ONE CAPSULE BY MOUTH DAILY. Rx Instructions: TAKE ONE CAPSULE BY MOUTH DAILY. aspirin 81 mg tablet,delayed release (DR/EC) 81 mg PO DAILY Qty: 30 2RF Referrals: Sudha Gibson MD [Primary Care Provider] -
[2022-02-24 01:27] VITALS: BP 93/51; PULSE 69; RESP 17; TEMP 36.4; O2SAT 97; BMI 29.2
--- NOTE | 2022-02-24 01:31 | DI.CT.S_ITS ---
PROCEDURE: CT CERVICAL SPINE WO CON INDICATIONS: fall, head injury, etoh TECHNIQUE: Noncontrast 3 mm thick sections acquired from the skull base to the T4 level. Sagittal and coronal reformats were then constructed. For radiation dose reduction, the following was used: automated exposure control, adjustment of mA and/or kV according to patient size. COMPARISON: [facility], CT, CT ANGIO HEAD AND NECK, 03/11/2021, 19:21. FINDINGS: Image quality: Excellent. Bones: No fractures or subluxation. There is slight reversal the cervical lordosis centered at C5. Multilevel degenerative disc disease demonstrated including moderate to severe degeneration in the mid cervical spine. There is also moderate multilevel facet arthropathy. Visualized superior ribs are intact. Soft tissues: Prevertebral soft tissues are normal in thickness. No paravertebral hematomas. No apical pneumothoraces. IMPRESSION: 1. No fracture or subluxation. 2. Multilevel degenerative changes throughout the cervical spine. The Dictated by: Americo Garvey M.D. on 02/24/2022 at 2:09 Approved by: Americo Garvey M.D. on 02/24/2022 at 2:11
--- NOTE | 2022-02-24 01:31 | DI.CT.S_ITS ---
PROCEDURE: CT HEAD/BRAIN WO CON INDICATIONS: fall, head injury, etoh TECHNIQUE: Noncontrast 4.5 mm thick angled axial sections acquired from the foramen magnum to the vertex, with coronal and sagittal reformats. For radiation dose reduction, the following was used: automated exposure control, adjustment of mA and/or kV according to patient size. COMPARISON: [facility], CT, CT HEAD/BRAIN WO CON, 03/25/2021, 0:25. FINDINGS: Image quality: Excellent. CSF spaces: Basal cisterns are patent. No extra-axial fluid collections. Ventricles are normal in size and shape. Brain: No intracranial hemorrhage, mass, or mass effect. There is a region of encephalomalacia involving the medial left occipital lobe consistent with sequelae of a prior infarct. Pham-white matter interface otherwise appears preserved. Skull and face: Calvarium and visualized facial bones are intact, without suspicious lesions. Sinuses: Visualized sinuses and mastoids are clear. IMPRESSION: 1. No acute intracranial abnormality. 2. Left occipital lobe encephalomalacia consistent with sequelae of a prior infarct. Dictated by: Americo Garvey M.D. on 02/24/2022 at 2:07 Approved by: Americo Garvey M.D. on 02/24/2022 at 2:09
[2022-02-24 01:55] LABS: Add Manual Diff / Slide Review NO; Basophils Absolute Auto 100 /uL (0-100); Basophils Percent Auto 0.6 % (0-2); Eosinophils Absolute Auto 200 /uL (0-450); Eosinophils Percent Auto 1.9 % (2-4); Hematocrit 30.9 % (36-46); Hemoglobin 9.7 g/dL (12.0-16.0); Lymphocytes Absolute Auto 2700 /uL (1100-4500); Lymphocytes Percent Auto 25.3 % (25-40); Mean Corpuscular HGB Conc 31.4 % (30-36); Mean Corpuscular Hemoglobin 23.1 PG (26-34); Mean Corpuscular Volume 73.5 fL (80-100); Monocytes Absolute Auto 1200 /uL (0-900); Monocytes Percent Auto 11.4 % (3-14); Neutrophils Absolute Auto 6500 /uL (1500-7000); Neutrophils Percent Auto 60.8 % (50-75); Platelet Count 397 X10^3/uL (150-400); White Blood Cell Count 10.6 X10^3/uL (4.5-11.0)
[2022-02-24] MEDS: TET,DIPH,PERTUSS(ACELL),VAC/PF 0.5 ML SYRINGE IM (01:55)
[2022-02-24] MEDS: SODIUM CHLORIDE 0.9% 1,000 ML 1000 ML IV (01:57)
[2022-02-24 02:08] VITALS: BP 91/46
[2022-02-24 02:08] LABS: Ethanol (ETOH) 83 mg/dL
[2022-02-24 02:12] LABS: Creatine Kinase 401 U/L (30-135)
[2022-02-24 02:14] LABS: Alanine Aminotransferase 35 IU/L (<35); Albumin 4.2 g/dL (3.5-5.0); Albumin Globulin Ratio 1.6 (1.0-2.8); Alkaline Phosphatase 58 U/L (38-126); Aspartate Aminotransferase 46 IU/L (14-36); BUN Creatinine Ratio 11.9 (6-22); Bilirubin Total 0.5 mg/dL (0.2-1.3); Blood Urea Nitrogen 14 mg/dL (7-17); Calcium 8.6 mg/dL (8.4-10.2); Carbon Dioxide 17 mmol/L (22-32); Chloride 103 mmol/L (98-107); Estimated Glomerular Filt Rate 56 mL/min (>60); Globulin 2.7 g/dL (1.7-4.1); Glucose 78 mg/dL (70-100); HEMOLYSIS < 15 (0-50); Lipase 307 U/L (23-300); Potassium 3.8 mmol/L (3.4-5.1); Sodium 134 mmol/L (137-145); Total Protein 6.9 g/dL (6.3-8.2)
[2022-02-24 02:17] LABS: INR 1.2 (0.9-1.3); Prothrombin Time 13.1 SECONDS (10.1-12.7)
[2022-02-24 02:20] LABS: PTT Partial Thromboplastin Tim 24 SECONDS (26.4-36.2)
[2022-02-24 02:25] LABS: Troponin I < 0.012 ng/mL (0.01-0.034)
[2022-02-24 03:00] LABS: CKMB % Relative Index 1.3 % (1.5-5.0); Creatine Kinase MB 5.14 ng/mL (<2.37)
[2022-02-24] MEDS: LIDO 1%/SOD BICARB 8.4% (10ML) 10 ML SYRINGE INJ (03:19)
[2022-02-24 03:44] VITALS: BP 103/64; PULSE 78; RESP 16; O2SAT 98
== END 2022-02-24 03:47 | disposition home or self-care (01) ==
PROVIDERS: Emergency Provider Emergency Medicine; PCP Family Medicine
DX: S01.111A Laceration without foreign body of right eyelid and periocular area, initial encounter (principal); D50.9 Iron deficiency anemia, unspecified; R51.9 Headache, unspecified; R79.89 Other specified abnormal findings of blood chemistry; F10.129 Alcohol abuse with intoxication, unspecified; Y90.4 Blood alcohol level of 80-99 mg/100 ml; W18.2XXA Fall in (into) shower or empty bathtub, initial encounter; Z23 Encounter for immunization; R07.9 Chest pain, unspecified
CPT/HCPCS: 12013; 36415; 70450; 72125; 80053; 80320; 82550; 82553; 83690; 84484; 85025; 85610; 85730; 90471; 93005; 99284; 90715

== ENCOUNTER → 2022-03-12 09:24 | Outpatient (CLI) | payer OTHER, SELFPAY ==
[2021-10-18 15:49] VITALS: BMI 29.2
== END ==
PROVIDERS: PCP Family Medicine; Visit Provider Physician Assistant
DX: R30.0 Dysuria (principal); N89.8 Other specified noninflammatory disorders of vagina
CPT/HCPCS: 87086; 87210

== ENCOUNTER → 2022-03-17 13:05 | Outpatient (CLI) | payer OTHER, SELFPAY ==
[2021-10-18 15:49] VITALS: BMI 29.2
[2022-03-17 14:54] LABS: Thyroid Stimulating Hormone 0.816 uIU/mL (0.47-4.68)
== END ==
PROVIDERS: PCP Family Medicine; Referring Provider Family Medicine; Visit Provider Family Medicine
DX: E03.9 Hypothyroidism, unspecified (principal)
CPT/HCPCS: 36415; 84443

== ENCOUNTER → 2022-03-31 06:50 | Outpatient (CLI) | payer OTHER, SELFPAY ==
[2021-10-18 15:49] VITALS: BMI 29.2
--- NOTE | 2022-03-31 06:53 | DI.MRI.S_ITS ---
PROCEDURE: MR ANGIO NECK W CON INDICATIONS: CVA and vertebral artery occlusion TECHNIQUE: Axial and sagittal TruFISP through the neck. Coronal dynamic MRA after the administration of contrast in the arterial and venous phases, with rotating 3-dimensional maximum intensity projection (MIP) reformats constructed from subtraction images. COMPARISON: [facility], , MR ANGIO NECK W CON, 09/29/2021, 11:54. FINDINGS: Image quality: Excellent. Carotid system: Great vessels demonstrate a conventional anatomy as they arise from the aortic arch. The origins of the common carotid arteries appear normal. The calibers and courses of the common carotid arteries are likewise normal. The carotid bifurcations appear normal bilaterally. The internal carotid arteries are widely patent up to the [place]. Posterior circulation: Persistent occlusion of the mid right interforaminal V2 vertebral artery with reconstitution at the origin of the [place] V3 segment, similar to the prior exam. Vertebral arteries join to form a normal appearing basilar artery. Miscellaneous: Subclavian arteries are patent throughout. Pre-contrast images through the neck demonstrate no soft tissue abnormalities. IMPRESSION: Persistent right vertebral artery occlusion with reconstitution, unchanged from the priors Any quantitative measurements of stenosis were performed using NASCET criteria. Approved by: Mike Sánchez M.D. on 03/31/2022 at 9:31
--- NOTE | 2022-03-31 06:53 | DI.MRI.S_ITS ---
PROCEDURE: MR HEAD/BRAIN WO/W CON INDICATIONS: CVA and vertebral artery occlusion TECHNIQUE: Noncontrast axial T1 spin echo, axial T2 fast spin echo, sagittal and axial FLAIR, coronal T2 fast spin echo, axial gradient echo, axial diffusion and ADC through the brain. After the administration of contrast, axial and coronal 3D VIBE or T1 spin echo with fat saturation through the brain. COMPARISON: [facility], CT, CT ANGIO HEAD AND NECK, 03/11/2021, 19:21. [facility], MR, MR HEAD/BRAIN WO/W CON, 09/26/2021, 7:32. FINDINGS: Image quality: Excellent. CSF Spaces: Basal cisterns are patent. No extra-axial fluid collections. Ventricles are normal in size and shape. Brain: Focal encephalomalacia, gliosis and volume loss noted involving the occipital bilateral distal BAG GRADER territories, left greater than right. Mild generalized volume loss multifocal white matter chronic ischemic change No midline shift. No intracranial bleeds or masses. No abnormal intracranial enhancement. The brainstem appears normal. Diffusion-weighted images demonstrate no acute infarcts. Normal intravascular flow voids are present. Skull and face: Calvarial marrow is normal in signal. Orbits appear normal. Sinuses: Sinuses and mastoids appear clear other than small subcentimeter left maxillary sinus retention cyst. 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 on 03/31/2022 at 9:22
== END ==
PROVIDERS: PCP Family Medicine; Referring Provider Family Medicine; Visit Provider Family Medicine
DX: I63.9 Cerebral infarction, unspecified (principal); I65.09 Occlusion and stenosis of unspecified vertebral artery; G93.89 Other specified disorders of brain
CPT/HCPCS: 70548; 70553

== ENCOUNTER → 2022-04-20 09:27 | Outpatient (CLI) | payer OTHER, SELFPAY ==
[2021-10-18 15:49] VITALS: BMI 29.2
[2022-04-20 10:49] LABS: Add Manual Diff / Slide Review NO; Basophils Absolute Auto 0 /uL (0-100); Basophils Percent Auto 0.3 % (0-2); Eosinophils Absolute Auto 100 /uL (0-450); Eosinophils Percent Auto 1.9 % (2-4); Hematocrit 37.9 % (36-46); Hemoglobin 12.4 g/dL (12.0-16.0); Lymphocytes Absolute Auto 1500 /uL (1100-4500); Lymphocytes Percent Auto 19.7 % (25-40); Mean Corpuscular HGB Conc 32.8 % (30-36); Mean Corpuscular Hemoglobin 27.4 PG (26-34); Mean Corpuscular Volume 83.6 fL (80-100); Monocytes Absolute Auto 600 /uL (0-900); Monocytes Percent Auto 7.8 % (3-14); Neutrophils Absolute Auto 5200 /uL (1500-7000); Neutrophils Percent Auto 70.3 % (50-75); Platelet Count 319 X10^3/uL (150-400); Red Blood Cell Count 4.54 X10^6/uL (4.0-5.2); White Blood Cell Count 7.5 X10^3/uL (4.5-11.0)
[2022-04-20 11:00] LABS: Poikilocytosis 1+
[2022-04-20 11:01] LABS: Anisocytosis 1+
[2022-04-20 12:07] LABS: HEMOLYSIS < 15 (0-50); Iron 153 ug/dL (37-170)
[2022-04-20 12:25] LABS: Percent Iron Saturation 41 % (15-50); Total Iron Binding Capacity 377 ug/dL (265-497)
[2022-04-20 12:28] LABS: Transferrin 295 mg/dL (206-381)
== END ==
PROVIDERS: PCP Family Medicine; Referring Provider Family Medicine; Visit Provider Family Medicine
DX: D64.9 Anemia, unspecified (principal)
CPT/HCPCS: 36415; 83540; 83550; 85025

== ENCOUNTER → 2022-07-11 09:00 | Outpatient (CLI) | payer OTHER, SELFPAY ==
[2021-10-18 15:49] VITALS: BMI 29.2
== END ==
PROVIDERS: PCP Family Medicine; Referring Provider Internal Medicine; Visit Provider Internal Medicine
DX: Z23 Encounter for immunization (principal)
CPT/HCPCS: 90471; 90682

== ENCOUNTER → 2022-08-26 10:13 | Outpatient (CLI) | payer OTHER, SELFPAY ==
[2021-10-18 15:49] VITALS: BMI 29.2
[2022-08-28 08:02] LABS: Fecal Immunochemical Test Positive (Negative)
== END ==
PROVIDERS: PCP Family Medicine; Referring Provider Family Medicine; Visit Provider Family Medicine
DX: Z12.11 Encounter for screening for malignant neoplasm of colon (principal)
CPT/HCPCS: 82274

== ENCOUNTER → 2023-02-26 07:30 | Outpatient (CLI) | payer OTHER, SELFPAY ==
[2021-10-18 15:49] VITALS: BMI 29.2
--- NOTE | 2023-02-26 07:31 | DI.MG.S_ITS ---
BILATERAL DIGITAL SCREENING MAMMOGRAM 3D/2D WITH CAD: 02/26/2023 CLINICAL: Routine screening. Family history of breast cancer. Comparison is made to exams dated: 02/20/2022 mammogram, 03/23/2020 mammogram, and 01/27/2019 mammogram - [facility]. There are scattered areas of fibroglandular density in both breasts (category b / 25%-50% glandular tissue). Current study was also evaluated with a Computer Aided Detection (CAD) system. No significant masses, calcifications, or other findings are seen in either breast. There has been no significant interval change. IMPRESSION: NEGATIVE There is no mammographic evidence of malignancy. A 1 year screening mammogram is recommended. Based on the Tyrer Cuzick model (a risk assessment model) the patient's lifetime risk is 9.4% and her 10 year risk is 2.3%. According to the ACR, ACS, and NCCN guidelines, an annual breast MRI exam along with mammogram is recommended if the patient's lifetime risk is 20% or greater. This exam was interpreted at Station ID: [id number]. NOTE: For mammograms, a report in lay terms will be sent to the patient. Approximately 15% of breast malignancies will not be visualized mammographically. In the management of a palpable breast mass, a negative mammogram must not discourage biopsy of a clinically suspicious lesion. Electronically Signed By: Roberto coelho/noemi:02/26/2023 09:21:01 letter sent: Normal Exam ACR BI-RADS Category 1: Negative [id number]
== END ==
PROVIDERS: PCP Family Medicine; Referring Provider Family Medicine; Visit Provider Family Medicine
DX: Z12.31 Encounter for screening mammogram for malignant neoplasm of breast (principal); Z80.3 Family history of malignant neoplasm of breast
CPT/HCPCS: 77063; 77067

== ENCOUNTER → 2023-04-06 07:18 | Outpatient (CLI) | payer OTHER, SELFPAY ==
[2021-10-18 15:49] VITALS: BMI 29.2
[2023-04-06 08:24] LABS: Alanine Aminotransferase 27 IU/L (<35); Albumin 4.1 g/dL (3.5-5.0); Albumin Globulin Ratio 1.5 (1.0-2.8); Alkaline Phosphatase 93 U/L (38-126); Aspartate Aminotransferase 31 IU/L (14-36); Bilirubin Total 0.8 mg/dL (0.2-1.3); Blood Urea Nitrogen 13 mg/dL (7-17); Carbon Dioxide 32 mmol/L (22-32); Chloride 99 mmol/L (98-107); Cholesterol 176 mg/dL (140-199); Estimated Glomerular Filt Rate > 60 mL/min (>60); Globulin 2.8 g/dL (1.7-4.1); Glucose 98 mg/dL (70-100); HEMOLYSIS < 15 (0-50); Potassium 4.8 mmol/L (3.4-5.1); Sodium 135 mmol/L (137-145); Total Protein 6.9 g/dL (6.3-8.2); Triglycerides 60 mg/dL (35-150)
[2023-04-06 08:29] LABS: Creatinine Urine Random 174.2 mg/dL
[2023-04-06 08:33] LABS: Microalbumi Creatinin Ratio Ur 5.1 ug/mg CR (<30); Microalbumin Urine Random 0.9 mg/dL (0-1.6)
[2023-04-06 08:43] LABS: HDL Cholesterol 112 mg/dL (40-60); LDL Cholesterol Calculated 52 mg/dL (<100)
[2023-04-06 08:51] LABS: TSH w/ Reflex to FT4 1.23 uIU/mL (0.47-4.68)
== END ==
PROVIDERS: PCP Family Medicine; Referring Provider Family Medicine; Visit Provider Family Medicine
DX: I10 Essential (primary) hypertension (principal); E03.9 Hypothyroidism, unspecified
CPT/HCPCS: 36415; 80053; 80061; 82043; 82570; 84443

== ENCOUNTER 2023-08-30 08:09 | Emergency (ER) | payer OTHER, SELFPAY ==
[2021-10-18 15:49] VITALS: BMI 29.2
[2023-08-30] VITALS (8 sets, daily range): BP systolic 125–205; BP diastolic 58–94; PULSE 58–82; RESP 13–24; TEMP 36.7; O2SAT 97–100
--- NOTE | 2023-08-30 08:15 | DI.CT.S_ITS ---
PROCEDURE: CT ANGIO HEAD AND NECK INDICATIONS: hx of CVA and R vert artery occlusion TECHNIQUE: After the administration of intravenous contrast, 1 mm thick sections acquired from the aortic arch through the [place]. 3-dimensional xmfixof-qsvopjlus-ahwgmburjr (MIP) and/or volume rendering reformats were acquired of the central intracranial vasculature and neck separately. For radiation dose reduction, the following was used: automated exposure control, adjustment of mA and/or kV according to patient size. COMPARISON: None. FINDINGS: Image quality: Diagnostic. BRAIN: CSF spaces: Ventricles are normal in size and shape. Basal cisterns are patent. No extra-axial fluid collections. Brain: No significant abnormality of the brain can be seen. Skull and face: Calvarium and facial bones appear intact, without suspicious lesions. Orbits appear normal. Sinuses: Sinuses and mastoids are clear. HEAD CT ANGIOGRAPHY: Anterior circulation: Intracranial internal carotid arteries are normal in size and flow. The flow within the paired anterior cerebral arteries is normal and symmetric. The flow within the middle cerebral arteries is normal and symmetric. The anterior communicating artery is seen. No aneurysms are seen. Posterior circulation: The distal right vertebral artery is somewhat diffusely diminutive. The distal left vertebral artery is dominant. They join to form a normal caliber basilar artery. Flow within the posterior cerebral arteries is normal and symmetric. No aneurysms are seen. NECK CT ANGIOGRAPHY: Carotid system: The great vessels demonstrate a normal variant anatomy as they arise from the aortic arch, in which the left vertebral artery arises directly off the aortic arch. The origins of the common carotid arteries appear patent. The common carotid arteries demonstrate normal caliber and courses. The bifurcation regions are both widely patent. The internal carotid arteries demonstrate normal calibers and courses. Posterior circulation: The left vertebral artery is dominant and is widely patent. The right vertebral artery is diminutive and has a known occlusion involving the V2 segment. It reconstitutes and is somewhat diminutive above the level of occlusion. Both vertebral arteries join to form a normal appearing basilar artery. 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 Soft tissues: Visualized neck soft tissues demonstrate no suspicious abnormalities. Bones: No suspicious bony lesions. Visualized cervical spine appears normally aligned. Severe cervical spondylosis. Canal stenosis at C5-C6. Multilevel bilateral bony foraminal stenoses, secondary to uncovertebral joint hypertrophy. IMPRESSION: 1. 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 The right vertebral artery is otherwise somewhat diffusely diminutive. 2. Unchanged CTA head. No stenosis, occlusion, filling defect, or aneurysm. 3. Widely patent carotids. 4. 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 5. Severe cervical spondylitic change with canal stenosis and multilevel bony foraminal stenosis. Any quantitative measurements of stenosis were performed using NASCET criteria. Dictated by: Paul Maldonado M.D. on 08/30/2023 at 9:10 Approved by: Paul Maldonado M.D. on 08/30/2023 at 9:17
--- NOTE | 2023-08-30 08:16 | DI.CT.S_ITS ---
PROCEDURE: CT HEAD/BRAIN WO CON INDICATIONS: History of occipital stroke with headache TECHNIQUE: Noncontrast 4.5 mm thick angled axial sections acquired from the foramen magnum to the vertex, with coronal and sagittal reformats. For radiation dose reduction, the following was used: automated exposure control, adjustment of mA and/or kV according to patient size. COMPARISON: [facility], MR, MR HEAD/BRAIN WO/W CON, 03/31/2022, 7:34. [facility], CT, CT HEAD/BRAIN WO CON, 02/24/2022, 1:40. FINDINGS: Image quality: Excellent. CSF spaces: Basal cisterns are patent. No extra-axial fluid collections. The ventricles are symmetric in size and shape. Brain: No intracranial bleeds or masses. There is cerebral volume loss for age, with resultant ventricular and sulcal prominence. There are periventricular and deep white matter chronic small vessel ischemic changes. Focal encephalomalacia is in the left occipital lobe from remote DIE TRIMMER distribution infarct. There is intracranial internal carotid artery atherosclerosis. Skull and face: Calvarium and visualized facial bones appear intact, without suspicious lesions. Sinuses: Visualized sinuses and mastoids are clear. IMPRESSION: In No acute intracranial pathology. Dictated by: Paul Maldonado M.D. on 08/30/2023 at 9:07 Approved by: Paul Maldonado M.D. on 08/30/2023 at 9:09
--- NOTE | 2023-08-30 08:22 | ED.NEUROSD ---
HPI - Neuro Symptoms/Deficit General Chief Complaint: Neuro Symptoms/Deficit Stated Complaint: poss stroke Time Seen by Provider: 08/30/23 08:09 Source: patient and family Mode of arrival: Ambulatory History of Present Illness HPI Narrative: 53-year-old female. Has had a history of a occipital stroke. Also has a history of a right vertebral artery occlusion. Is not currently on anticoagulation. The stroke occurred a couple years ago. She also has a history of migraine headaches. Has a history of alcohol use disorder. She stated that last evening she started to have a headache. It does feel like 1 of her typical migraine headaches but it is going down the back of her neck which is somewhat unusual. She is photophobic. She states that normally she takes gabapentin and tries to get some sleep and this will help with her headaches. She did not take any medicine last evening however when she woke up this morning the headache was somewhat worse. She took gabapentin this morning without any improvement. Patient's at bedside stated that her speech disturbances which include some starting of words seemed to start this morning. Patient has no numbness and tingling in her upper and lower extremities. No chest pain or shortness of breath. Given her history of a stroke and the neck discomfort she was concerned about potentially having another stroke today. On Anticoagulants: No (on aspirin) Related Data Home Medications Medication Instructions Recorded Confirmed ascorbate calcium (vitamin C) 500 1 g PO Q6H 02/21/23 05/04/23 mg tablet biotin 2,500 mcg capsule 2,500 mcg PO DAILY 02/21/23 05/04/23 cholecalciferol (vitamin D3) 50 50 mcg PO DAILY 02/21/23 05/04/23 mcg (2,000 unit) capsule ferrous sulfate 27 mg iron tablet 27 mg PO BID 02/21/23 05/04/23 lactobacillus combination no.9 4 4,000 mmu cells PO DAILY 02/21/23 05/04/23 billion cell capsule (Adult 50 Plus Probiotic) magnesium 250 mg tablet 250 mg PO DAILY 02/21/23 05/04/23 multivitamin (Daily Multi-Vitamin 1 tab PO DAILY 02/21/23 05/04/23 tablet) Previous Rx's Medication Instructions Recorded aspirin 81 mg tablet,delayed 81 mg PO DAILY #30 tabs 03/25/21 release atorvastatin 40 mg tablet 40 mg PO DAILY #90 tabs 03/30/23 bupropion HCl 200 mg tablet,12 hr See Rx Instructions .Route 03/30/23 sustained-release .COMPLEX #180 ea clonidine HCl 0.2 mg tablet See Rx Instructions .Route 03/30/23 .COMPLEX #90 tabs estradiol 0.05 mg/24 hr semiweekly See Rx Instructions .Route 03/30/23 transdermal patch (Katrin) .COMPLEX #24 patches fluoxetine 40 mg capsule See Rx Instructions .Route 03/30/23 .COMPLEX #90 caps gabapentin 100 mg capsule See Rx Instructions .Route 03/30/23 .COMPLEX #60 caps hydroxyzine HCl 25 mg tablet 25 mg PO TID PRN anxiety #30 tabs 03/30/23 lisinopril 10 mg tablet See Rx Instructions .Route 03/30/23 .COMPLEX #90 tabs naltrexone 50 mg tablet 100 mg (2 x 50 mg) PO DAILY #180 03/30/23 tabs fluconazole 150 mg tablet 150 mg PO Q3D 2 doses #2 tabs 04/20/23 levothyroxine 75 mcg tablet 75 mcg PO DAILY #30 tabs 07/27/23 Allergies Allergy/AdvReac Type Severity Reaction Status Date / Time hydrocodone Allergy Intermediate facial Verified 05/04/23 10:26 swelling egg [EGG] Allergy Mild HIVES/WHITE Verified 05/04/23 10:26 ONLY NSAIDS (Non-Steroidal Allergy Mild Nausea Verified 05/04/23 10:26 Anti-Inflamma [NSAIDS (NON-STEROIDAL ANTI-INFLAMMA] oxycodone [OXYCODONE] Allergy Mild DECREASE Verified 05/04/23 10:26 HR AND DECREASE BP sulfamethoxazole Allergy Mild LIP Verified 05/04/23 10:26 [SULFAMETHOXAZOLE] SWELLING, FACIAL RASH, AND DERMATITIS tetracycline [TETRACYCLINE] Allergy Mild SEVERE Verified 05/04/23 10:26 SKIN SWELLING trimethoprim [TRIMETHOPRIM] Allergy Mild FACIAL Verified 05/04/23 10:26 RASH, LIP SWELLING, AND DERMATITIS Review of Systems Constitutional Constitutional: Reports system reviewed and no additional complaints, except as documented Eyes Eyes: Reports system reviewed and no additional complaints, except as documented ENT Ears, Nose, Mouth, and Throat: Reports system reviewed and no additional complaints, except as documented Cardiovascular Cardiovascular: Reports system reviewed and no additional complaints, except as documented Respiratory Respiratory: Reports system reviewed and no additional complaints, except as documented Gastrointestinal Gastrointestinal: Reports system reviewed and no additional complaints, except as documented Musculoskeletal Musculoskeletal: Reports system reviewed and no additional complaints, except as documented Neurologic Neurologic: Reports system reviewed and no additional complaints, except as documented Hematologic/Lymphatic On Anticoagulants: No (on aspirin) Patient History Medical History CVA (cerebral vascular accident) Excessive drinking of alcohol Skin infection Hyperlipidemia Asthma Impaired glucose tolerance Hypertension Acne (vaginal after ) Hypothyroidism (acquired) Depression (~2012) Mood swings (~2012) Fatigue (~2012) Surgical History History of section (1990) History of hysterectomy (12/15/11) History of laparoscopic cholecystectomy (1996) History of myomectomy (01/23/06) History of myomectomy (07/20/10) History of right breast biopsy (1989) S/P cervical polypectomy (~05/29/19) S/P gastric bypass (12/22/09) Family History Father Diabetes mellitus Brain aneurysm [place] (myocardial infarction) Mother Asthma Obesity Grandfather Hypertension Hx of CABG Daughter Asthma Hayfever Daughter Asthma Hayfever Social History marital status: number of children: 2 household members: spouse lives independently: Yes caregiver/support person: No housing: house occupational status: employed seatbelt use: always Smoking Status: Never smoker alcohol intake: current substance use type: does not use Smoking Status: Never smoker alcohol intake frequency: 3 or more drinks per day Substance Use Type: does not use Exam Initial Vital Signs Initial Vital Signs: Vital Signs Temperature 98.1 F 08/30/23 08:11 Pulse Rate 82 08/30/23 08:11 Respiratory Rate 18 08/30/23 08:11 Blood Pressure 205/94 H 08/30/23 08:11 Pulse Oximetry 97 08/30/23 08:11 Oxygen Delivery Method Room Air 08/30/23 08:11 Const General: cooperative and No comfortable (Appears uncomfortable) Resp Effort & Inspection: normal respiratory effort Auscultation: clear to auscultation bilaterally Cardio Rate: regular rate Rhythm: regular rhythm GI Inspection: normal to inspection Skin General: no rashes or lesions noted Neuro General: patient alert, patient awake and moves all extremities Cognition: normal cognition Speech: abnormal speech (Stuttering), no expressive aphasia and no receptive aphasia Motor: muscle tone normal throughout Extrem General: normal to inspection and capillary refill normal Other: No gross deformities Course Orders Ordered: ED Orders 08/30/23 08:15 CT angio head and neck Stat EKG-12 Lead Stat 08/30/23 08:16 CT head/brain wo con Stat 08/30/23 08:22 Complete Blood Count AUTO DIFF Stat Comprehensive Metabolic Panel Stat Ethanol (ETOH) Stat Lipase Stat Discontinued Medications Diphenhydramine HCl (Diphenhydramine 50 Mg/Ml Vial) 25 mg IV NOW ONE Stop: 08/30/23 08:22 Last Admin: 08/30/23 08:36 Dose: 25 mg Documented By: CHA Sodium Chloride (Normal Saline 0.9%) 1,000 mls @ 1,000 mls/hr IV BOLUS ONE Stop: 08/30/23 09:20 Last Admin: 08/30/23 08:38 Dose: 1,000 mls/hr Documented By: CHA Acetaminophen (Ofirmev) 1,000 mg in 100 mls @ 400 mls/hr IV NOW ONE Stop: 08/30/23 08:35 Last Infusion: 08/30/23 09:10 Dose: Infused Documented By: Admin: 08/30/23 08:40 Dose: 400 mls/hr Documented By: CHA Metoclopramide HCl (Metoclopramide 10 Mg/2 Ml Inj) 10 mg IV NOW ONE Stop: 08/30/23 08:22 Last Admin: 08/30/23 08:38 Dose: 10 mg Documented By: CHA Vital Signs Vital signs: Vital Signs - 8 hr 08/30/23 08:11 Temperature 98.1 F Pulse Rate 82 Respiratory Rate 18 Blood Pressure 205/94 H Pulse Oximetry 97 Oxygen Delivery Method Room Air MDM - Neuro Symptoms/Deficit Medical Records Attestation: I reviewed the patient's medical records. Lab Data Attestation: I reviewed the patient's lab results. 08/30/23 08:22 08/30/23 08:22 Labs: Lab Results 08/30/23 Range/Units 08:22 WBC 6.5 (4.5-11.0) X10^3/uL RBC 4.43 (4.0-5.2) X10^6/uL Hgb 13.8 (12.0-16.0) g/dL Hct 41.1 (36-46) % MCV 92.8 (80-100) fL MCH 31.1 (26-34) PG MCHC 33.5 (30-36) % RDW 13.2 (11.6-14.8) % Plt Count 358 (150-400) X10^3/uL Neut % (Auto) 65.2 (50-75) % Lymph % (Auto) 21.7 L (25-40) % [place] % (Auto) 8.5 (3-14) % Eos % (Auto) 4.1 H (2-4) % Baso % (Auto) 0.5 (0-2) % Neut # (Auto) 4300 (3892-3018) /uL Lymph # (Auto) 1400 (9036-2221) /uL [place] # (Auto) 600 (0-900) /uL Eos # (Auto) 300 (0-450) /uL Baso # (Auto) 0 (0-100) /uL Sodium 137 (137-145) mmol/L Potassium 4.3 (3.4-5.1) mmol/L Chloride 100 (98-107) mmol/L Carbon Dioxide 29 (22-32) mmol/L BUN 12 (7-17) mg/dL Creatinine 0.71 (0.52-1.04) mg/dL Estimated GFR > 60 (>60) mL/min BUN/Creatinine Ratio 16.9 (6-22) Glucose 137 H (70-100) mg/dL Calcium 9.6 (8.4-10.2) mg/dL Total Bilirubin 0.9 (0.2-1.3) mg/dL AST 42 H (14-36) IU/L ALT 34 (<35) IU/L Alkaline Phosphatase 79 (38-126) U/L Total Protein 7.9 (6.3-8.2) g/dL Albumin 4.7 (3.5-5.0) g/dL Globulin 3.2 (1.7-4.1) g/dL Albumin/Globulin Ratio 1.5 (1.0-2.8) Lipase 209 (23-300) U/L Ethyl Alcohol < 10 ( - 10) mg/dL Imaging Data CT scan - head: Radiologist's Impression: PROCEDURE: CT HEAD/BRAIN WO CON INDICATIONS: History of occipital stroke with headache TECHNIQUE: Noncontrast 4.5 mm thick angled axial sections acquired from the foramen magnum to the vertex, with coronal and sagittal reformats. For radiation dose reduction, the following was used: automated exposure control, adjustment of mA and/or kV according to patient size. COMPARISON: [facility], MR, MR HEAD/BRAIN WO/W CON, 03/31/2022, 7:34. [facility], CT, CT HEAD/BRAIN WO CON, 02/24/2022, 1:40. FINDINGS: Image quality: Excellent. CSF spaces: Basal cisterns are patent. No extra-axial fluid collections. The ventricles are symmetric in size and shape. Brain: No intracranial bleeds or masses. There is cerebral volume loss for age, with resultant ventricular and sulcal prominence. There are periventricular and deep white matter chronic small vessel ischemic changes. Focal encephalomalacia is in the left occipital lobe from remote [employer] distribution infarct. There is intracranial internal carotid artery atherosclerosis. Skull and face: Calvarium and visualized facial bones appear intact, without suspicious lesions. Sinuses: Visualized sinuses and mastoids are clear. IMPRESSION: In No acute intracranial pathology. CTA - brain/neck: Radiologist's Impression: PROCEDURE: CT ANGIO HEAD AND NECK INDICATIONS: hx of CVA and R vert artery occlusion TECHNIQUE: After the administration of intravenous contrast, 1 mm thick sections acquired from the aortic arch through the [place] of [place]. 3-dimensional wrxwsiw-tfbhumqmo-ixoyqlejcu (MIP) and/or volume rendering reformats were acquired of the central intracranial vasculature and neck separately. For radiation dose reduction, the following was used: automated exposure control, adjustment of mA and/or kV according to patient size. COMPARISON: None. FINDINGS: Image quality: Diagnostic. BRAIN: CSF spaces: Ventricles are normal in size and shape. Basal cisterns are patent. No extra-axial fluid collections. Brain: No significant abnormality of the brain can be seen. Skull and face: Calvarium and facial bones appear intact, without suspicious lesions. Orbits appear normal. Sinuses: Sinuses and mastoids are clear. HEAD CT ANGIOGRAPHY: Anterior circulation: Intracranial internal carotid arteries are normal in size and flow. The flow within the paired anterior cerebral arteries is normal and symmetric. The flow within the middle cerebral arteries is normal and symmetric. The anterior communicating artery is seen. No aneurysms are seen. Posterior circulation: The distal right vertebral artery is somewhat diffusely diminutive. The distal left vertebral artery is dominant. They join to form a normal caliber basilar artery. Flow within the posterior cerebral arteries is normal and symmetric. No aneurysms are seen. NECK CT ANGIOGRAPHY: Carotid system: The great vessels demonstrate a normal variant anatomy as they arise from the aortic arch, in which the left vertebral artery arises directly off the aortic arch. The origins of the common carotid arteries appear patent. The common carotid arteries demonstrate normal caliber and courses. The bifurcation regions are both widely patent. The internal carotid arteries demonstrate normal calibers and courses. Posterior circulation: The left vertebral artery is dominant and is widely patent. The right vertebral artery is diminutive and has a known occlusion involving the V2 segment. It reconstitutes and is somewhat diminutive above the level of occlusion. Both vertebral arteries join to form a normal appearing basilar artery. 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 Soft tissues: Visualized neck soft tissues demonstrate no suspicious abnormalities. Bones: No suspicious bony lesions. Visualized cervical spine appears normally aligned. Severe cervical spondylosis. Canal stenosis at C5-C6. Multilevel bilateral bony foraminal stenoses, secondary to uncovertebral joint hypertrophy. IMPRESSION: 1. 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 The right vertebral artery is otherwise somewhat diffusely diminutive. 2. Unchanged CTA head. No stenosis, occlusion, filling defect, or aneurysm. 3. Widely patent carotids. 4. 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 5. Severe cervical spondylitic change with canal stenosis and multilevel bony foraminal stenosis. Any quantitative measurements of stenosis were performed using NASCET criteria. [facility] Narrative Medical decision making narrative: CT scan of the head and CTA of the head and neck showed no new pathology. Her blood pressure improved without specific blood pressure lowering medications here in the ER. I suspect that it was elevated because of the discomfort that she was having. She reported complete resolution of her headache however was still having some neck discomfort. Her speech is now back to normal. Her neurologic exam shows equal strength and sensation bilateral upper and lower extremities. She does have vision deficits of bilateral upper eyes but this is not new for her. I have low suspicion for a new CVA. Low suspicion for meningitis. Patient states she is feeling well enough that she would like to go home. We discussed return precautions and follow-up instructions. She expressed understanding and agreement. Discharge Plan Departure Patient Disposition: Home Clinical Impression: Headache Instructions: DI for Headache Activity Restrictions/Additional Instructions: Do recommend that you continue to take all of your medications as directed. Contact your primary care provider for a follow-up. Return to the emergency department for new or worsening symptoms. Prescriptions: No Action atorvastatin 40 mg tablet 40 mg PO DAILY Qty: 90 3RF bupropion HCl 200 mg tablet sustained-release 12 hr See Rx Instructions .ROUTE .COMPLEX Qty: 180 3RF Dose Instruction: Take 1 tablet (200 mg) by mouth 2 times daily Rx Instructions: Take 1 tablet (200 mg) by mouth 2 times daily clonidine HCl 0.2 mg tablet See Rx Instructions .ROUTE .COMPLEX Qty: 90 3RF Dose Instruction: Take 1 tablet (0.2 mg) by mouth at bedtime Rx Instructions: Take 1 tablet (0.2 mg) by mouth at bedtime estradiol [Katrin] 0.05 mg/24 hr patch semiweekly See Rx Instructions .ROUTE .COMPLEX Qty: 24 3RF Dose Instruction: Apply 1 patch to dry, hairless skin and change twice a week Rx Instructions: Apply 1 patch to dry, hairless skin and change twice a week fluoxetine 40 mg capsule See Rx Instructions .ROUTE .COMPLEX Qty: 90 3RF Dose Instruction: Take 1 capsule (40 mg) by mouth one time daily Rx Instructions: Take 1 capsule (40 mg) by mouth one time daily gabapentin 100 mg capsule See Rx Instructions .ROUTE .COMPLEX Qty: 60 3RF Dose Instruction: TAKE ONE CAPSULE BY MOUTH NIGHTLY AT BEDTIME NEEDED FOR PAIN Rx Instructions: TAKE ONE CAPSULE BY MOUTH NIGHTLY AT BEDTIME NEEDED FOR PAIN hydroxyzine HCl 25 mg tablet 25 mg PO TID PRN (Reason: anxiety) Qty: 30 2RF lisinopril 10 mg tablet See Rx Instructions .ROUTE .COMPLEX Qty: 90 3RF Dose Instruction: Take 1 tablet (10 mg) by mouth daily Rx Instructions: Take 1 tablet (10 mg) by mouth daily naltrexone 50 mg tablet 100 mg PO DAILY Qty: 180 3RF ferrous sulfate 27 mg iron tablet 27 mg PO BID ascorbate calcium (vitamin C) 500 mg tablet 1 g PO Q6H biotin 2,500 mcg capsule 2,500 mcg PO DAILY cholecalciferol (vitamin D3) 50 mcg (2,000 unit) capsule 50 mcg PO DAILY magnesium 250 mg tablet 250 mg PO DAILY multivitamin [Daily Multi-Vitamin] Tablet 1 tab PO DAILY Adult 50 Plus Probiotic 4 billion cell capsule 4,000 mmu cells PO DAILY Rx Instructions: administer with a meal fluconazole 150 mg tablet 150 mg PO Q3D Qty: 2 0RF Rx Instructions: Take one tab today and repeat in 72hours if symptoms persist. levothyroxine 75 mcg tablet 75 mcg PO DAILY Qty: 30 1RF aspirin 81 mg tablet,delayed release (DR/EC) 81 mg PO DAILY Qty: 30 2RF Referrals: Sudha Gibson MD [Primary Care Provider] - Stand Alone Forms: Patient Portal/API
[2023-08-30] MEDS: diphenhydrAMINE 50 MG/ML VIAL 25 MG IV (08:36)
[2023-08-30 08:37] LABS: Add Manual Diff / Slide Review NO; Basophils Absolute Auto 0 /uL (0-100); Basophils Percent Auto 0.5 % (0-2); Eosinophils Absolute Auto 300 /uL (0-450); Eosinophils Percent Auto 4.1 % (2-4); Hematocrit 41.1 % (36-46); Hemoglobin 13.8 g/dL (12.0-16.0); Lymphocytes Absolute Auto 1400 /uL (1100-4500); Lymphocytes Percent Auto 21.7 % (25-40); Mean Corpuscular HGB Conc 33.5 % (30-36); Mean Corpuscular Hemoglobin 31.1 PG (26-34); Mean Corpuscular Volume 92.8 fL (80-100); Monocytes Absolute Auto 600 /uL (0-900); Monocytes Percent Auto 8.5 % (3-14); Neutrophils Absolute Auto 4300 /uL (1500-7000); Neutrophils Percent Auto 65.2 % (50-75); Platelet Count 358 X10^3/uL (150-400); Red Blood Cell Count 4.43 X10^6/uL (4.0-5.2); Red Cell Distribution Width 13.2 % (11.6-14.8); White Blood Cell Count 6.5 X10^3/uL (4.5-11.0)
[2023-08-30] MEDS: METOCLOPRAMIDE 10 MG/2 ML INJ IV (08:38)
[2023-08-30] MEDS: SODIUM CHLORIDE 0.9% 1,000 ML 1000 ML IV (08:38)
[2023-08-30] MEDS: ACETAMINOPHEN IV 1,000 MG/100 ML VIAL 400 MG IV (08:40)
[2023-08-30 08:45] LABS: Alanine Aminotransferase 34 IU/L (<35); Albumin 4.7 g/dL (3.5-5.0); Albumin Globulin Ratio 1.5 (1.0-2.8); Alkaline Phosphatase 79 U/L (38-126); Aspartate Aminotransferase 42 IU/L (14-36); BUN Creatinine Ratio 16.9 (6-22); Bilirubin Total 0.9 mg/dL (0.2-1.3); Blood Urea Nitrogen 12 mg/dL (7-17); Calcium 9.6 mg/dL (8.4-10.2); Carbon Dioxide 29 mmol/L (22-32); Chloride 100 mmol/L (98-107); Estimated Glomerular Filt Rate > 60 mL/min (>60); Ethanol (ETOH) < 10 mg/dL; Globulin 3.2 g/dL (1.7-4.1); Glucose 137 mg/dL (70-100); HEMOLYSIS < 15 (0-50); Lipase 209 U/L (23-300); Potassium 4.3 mmol/L (3.4-5.1); Sodium 137 mmol/L (137-145); Total Protein 7.9 g/dL (6.3-8.2)
--- NOTE | 2023-08-30 09:11 | PC.NURSE ---
Patient has partial vision loss in upper right quadrant in her right eye and in her upper right quadrant in her left eye from her previous stroke. She stated that this is not new for her. She is stuttering since this morning but her speech is clear and she is not having difficulties recalling appropriate words on the [facility] cards, just stuttering.
== END 2023-08-30 09:51 | disposition home or self-care (01) ==
PROVIDERS: Emergency Provider Emergency Medicine; PCP Family Medicine
DX: R51.9 Headache, unspecified (principal); Z86.73 Personal history of transient ischemic attack (TIA), and cerebral infarction without residual deficits; Z79.82 Long term (current) use of aspirin; Z86.79 Personal history of other diseases of the circulatory system
CPT/HCPCS: 36415; 70450; 70496; 70498; 80053; 80320; 83690; 85025; 96365; 96375; 99284; J0131; J1200; J2765; Q9967

== ENCOUNTER → 2024-03-17 07:35 | Outpatient (CLI) | payer OTHER, SELFPAY ==
[2023-09-05 13:03] VITALS: BMI 29.2
--- NOTE | 2024-03-17 07:36 | DI.MG.S_ITS ---
BILATERAL DIGITAL SCREENING MAMMOGRAM 3D/2D WITH CAD: 03/17/2024 CLINICAL: Routine screening. Family history of breast cancer. Comparison is made to exams dated: 02/26/2023 mammogram, 02/20/2022 mammogram, and 03/23/2020 mammogram - [facility]. Both breasts are almost entirely fatty (category a/<25% glandular tissue). Current study was also evaluated with a Computer Aided Detection (CAD) system. No significant masses, calcifications, or other findings are seen in either breast. There has been no significant interval change. IMPRESSION: NEGATIVE There is no mammographic evidence of malignancy. A 1 year screening mammogram is recommended. Based on the Tyrer Cuzick model (a risk assessment model) the patient's lifetime risk is 6.2% and her 10 year risk is 1.6%. According to the ACR, ACS, and NCCN guidelines, an annual breast MRI exam along with mammogram is recommended if the patient's lifetime risk is 20% or greater. This exam was interpreted at Station ID: [id number]. NOTE: For mammograms, a report in lay terms will be sent to the patient. Approximately 15% of breast malignancies will not be visualized mammographically. In the management of a palpable breast mass, a negative mammogram must not discourage biopsy of a clinically suspicious lesion. Electronically Signed By: Graciela forde/noemi:03/17/2024 16:43:54 letter sent: Normal Exam ACR BI-RADS Category 1: Negative [id number]
== END ==
PROVIDERS: PCP Family Medicine; Referring Provider Family Medicine; Visit Provider Family Medicine
DX: Z12.31 Encounter for screening mammogram for malignant neoplasm of breast (principal); Z80.3 Family history of malignant neoplasm of breast; R92.313 Mammographic fatty tissue density, bilateral breasts
CPT/HCPCS: 77063; 77067

== ENCOUNTER → 2024-05-02 08:58 | Outpatient (CLI) | payer OTHER, SELFPAY ==
[2023-09-05 13:03] VITALS: BMI 29.2
[2024-05-02 09:45] LABS: Add Manual Diff / Slide Review NO; Basophils Absolute Auto 0 /uL (0-100); Basophils Percent Auto 0.5 % (0-2); Eosinophils Absolute Auto 400 /uL (0-450); Eosinophils Percent Auto 5.6 % (2-4); Hematocrit 38.6 % (36-46); Hemoglobin 12.9 g/dL (12.0-16.0); Lymphocytes Absolute Auto 1700 /uL (1100-4500); Lymphocytes Percent Auto 24.7 % (25-40); Mean Corpuscular HGB Conc 33.5 % (30-36); Mean Corpuscular Volume 92.6 fL (80-100); Monocytes Absolute Auto 600 /uL (0-900); Monocytes Percent Auto 8.8 % (3-14); Neutrophils Absolute Auto 4100 /uL (1500-7000); Neutrophils Percent Auto 60.4 % (50-75); Platelet Count 281 X10^3/uL (150-400); Red Blood Cell Count 4.17 X10^6/uL (4.0-5.2); Red Cell Distribution Width 13.2 % (11.6-14.8); White Blood Cell Count 6.8 X10^3/uL (4.5-11.0)
[2024-05-02 10:50] LABS: Alanine Aminotransferase 26 IU/L (<35); Albumin 4.4 g/dL (3.5-5.0); Albumin Globulin Ratio 1.8 (1.0-2.8); Alkaline Phosphatase 96 U/L (38-126); Aspartate Aminotransferase 39 IU/L (14-36); BUN Creatinine Ratio 15.4 (6-22); Bilirubin Total 0.7 mg/dL (0.2-1.3); Blood Urea Nitrogen 10 mg/dL (7-17); Calcium 8.9 mg/dL (8.4-10.2); Carbon Dioxide 28 mmol/L (22-32); Chloride 104 mmol/L (98-107); Cholesterol 183 mg/dL (140-199); Estimated Glomerular Filt Rate > 60 mL/min (>60); Globulin 2.5 g/dL (1.7-4.1); Glucose 79 mg/dL (70-100); HEMOLYSIS < 15 (0-50); Potassium 4.7 mmol/L (3.4-5.1); Sodium 137 mmol/L (137-145); Total Protein 6.9 g/dL (6.3-8.2); Triglycerides 83 mg/dL (35-150)
[2024-05-02 11:12] LABS: HDL Cholesterol 142 mg/dL (40-60); LDL Cholesterol Calculated 24 mg/dL (<100)
[2024-05-02 11:20] LABS: TSH w/ Reflex to FT4 1.88 uIU/mL (0.47-4.68)
== END ==
PROVIDERS: PCP Family Medicine; Referring Provider Family Medicine; Visit Provider Family Medicine
DX: I10 Essential (primary) hypertension (principal); E03.9 Hypothyroidism, unspecified; F10.20 Alcohol dependence, uncomplicated
CPT/HCPCS: 36415; 80053; 80061; 84443; 85025

== ENCOUNTER → 2025-04-07 09:15 | Outpatient (CLI) | payer OTHER, SELFPAY ==
[2023-09-05 13:03] VITALS: BMI 29.2
--- NOTE | 2025-04-07 09:18 | DI.RAD.S_ITS ---
PROCEDURE: XR HIP W PEL IF DONE RT 2V INDICATIONS: right hip pain TECHNIQUE: AP pelvis with lateral view(s) of the right hip(s). COMPARISON: None. FINDINGS: Bones: There are no osseous abnormalities. SI and hip joints: Normal in width and alignment without arthritic change Soft tissues: No soft tissue swelling, calcification or mass. IMPRESSION: Normal pelvis Dictated by: Dakota Jarrell M.D. on 04/08/2025 at 11:56 Approved by: Dakota Jarrell M.D. on 04/08/2025 at 11:56
== END ==
LOC: LAB 09:17
PROVIDERS: PCP Family Medicine; Referring Provider Family Medicine; Visit Provider Family Medicine
DX: M25.551 Pain in right hip (principal)
CPT/HCPCS: 73502

== ENCOUNTER 2025-08-16 19:32 | Emergency (ER) | payer OTHER, SELFPAY ==
[2023-09-05 13:03] VITALS: BMI 29.2
[2025-08-16 19:38] VITALS: BP 171/96; PULSE 109; RESP 18; TEMP 36.1; O2SAT 97; BMI 30.1
--- NOTE | 2025-08-16 20:07 | PC.NURSE ---
not actively vomiting at present, has been unable to tolerate food or fluids since yesterday normally drinks at least 7 beers/ day has not drank since yesterday
[2025-08-16 20:08] LABS: Add Manual Diff / Slide Review NO; Hematocrit 46.1 % (36-46); Hemoglobin 15.5 g/dL (12.0-16.0); Lymphocytes Absolute Auto 900 /uL (1100-4500); Mean Corpuscular HGB Conc 33.6 % (30-36); Mean Corpuscular Hemoglobin 30.9 PG (26-34); Mean Corpuscular Volume 91.8 fL (80-100); Platelet Count 318 X10^3/uL (150-400)
--- NOTE | 2025-08-16 20:08 | ED_ITS ---
HPI - Nausea/Vomiting/Diarrhea
--- NOTE | 2025-08-16 20:08 | ED.NAVMDI ---
HPI - Nausea/Vomiting/Diarrhea General Chief complaint: Nausea/Vomiting/Diarrhea Stated complaint: Puking for 12 hours Time Seen by Provider: 08/16/25 19:51 Source: patient and family Mode of arrival: Ambulatory History of Present Illness HPI Narrative: 55-year-old female with history of regular alcohol use, last drink yesterday, having nausea and vomiting today and yesterday, nonbloody. And loose stools without black or red color. with similar GI symptoms. No immediate exposure to antibiotics. No recent travel. No fevers or chills. She is not feel like she is having withdrawal symptoms from alcohol. Denies chronic opiate use or problems withdrawing from opiates. Denies history of pancreatitis or hepatitis problems in the past. Prior remote cholecystectomy noted. Related Data Home Medications ?Medication ?Instructions ?Recorded ?Confirmed ascorbate calcium (vitamin C) 500 1 g PO Q6H 02/21/23 04/03/25 mg tablet biotin 2,500 mcg capsule 2,500 mcg PO DAILY 02/21/23 04/03/25 cholecalciferol (vitamin D3) 50 50 mcg PO DAILY 02/21/23 04/03/25 mcg (2,000 unit) capsule ferrous sulfate 27 mg iron tablet 27 mg PO BID 02/21/23 04/03/25 lactobacillus combination no.9 4 4,000 mmu cells PO DAILY 02/21/23 04/03/25 billion cell capsule (Adult 50 Plus Probiotic) magnesium 250 mg tablet 250 mg PO DAILY 02/21/23 04/03/25 multivitamin (Daily Multi-Vitamin 1 tab PO DAILY 02/21/23 04/03/25 tablet) Previous Rx's ?Medication ?Instructions ?Recorded aspirin 81 mg tablet,delayed 81 mg PO DAILY #30 tabs 03/25/21 release cyclobenzaprine 5 mg tablet 5 mg PO TID PRN muscle spasm #20 09/03/23 tabs sumatriptan succinate 25 mg tablet See Rx Instructions PO .COMPLEX 09/12/23 #20 tabs levothyroxine 75 mcg tablet 75 mcg PO DAILY #90 tabs 09/08/24 albuterol sulfate 90 mcg/actuation 2 inh inhalation Q4-6H PRN 11/24/24 breath activated powder shortness of breath or wheezing #1 inhaler,sensor ea ciclesonide 160 mcg/actuation 1 puff inhalation BID #6.1 grams 11/24/24 aerosol inhaler (Alvesco) clonidine HCl 0.2 mg tablet 0.2 mg PO QPM #90 tabs 12/25/24 estradiol 0.05 mg/24 hr semiweekly 1 patch topical 2XW #24 patches 12/25/24 transdermal patch (Katrin) gabapentin 100 mg capsule 100 mg PO ONCE PM PRN for pain #60 12/25/24 caps hydroxyzine HCl 25 mg tablet 25 mg PO TID PRN anxiety #30 tabs 01/12/25 atorvastatin 40 mg tablet 40 mg PO DAILY #90 tabs 03/23/25 lisinopril 20 mg tablet See Rx Instructions .Route 04/20/25 .COMPLEX #90 tabs fluoxetine 40 mg capsule See Rx Instructions .Route 05/25/25 .COMPLEX #90 caps bupropion HCl 300 mg 24 hr tablet, 300 mg PO QAM #30 tabs 08/04/25 extended release Allergies Allergy/AdvReac Type Severity Reaction Status Date / Time hydrocodone Allergy Intermediate facial Verified 08/16/25 19:38 swelling sulfamethoxazole Allergy Mild LIP Verified 08/16/25 19:38 (SULFAMETHOXAZOLE) SWELLING, FACIAL RASH, AND DERMATITIS tetracycline (TETRACYCLINE) Allergy Mild SEVERE Verified 08/16/25 19:38 SKIN SWELLING trimethoprim (TRIMETHOPRIM) Allergy Mild FACIAL Verified 08/16/25 19:38 RASH, LIP SWELLING, AND DERMATITIS egg (EGG) AdvReac Mild HIVES/WHITE Verified 08/16/25 19:38 ONLY NSAIDS (Non-Steroidal AdvReac Mild Nausea Verified 08/16/25 19:38 Anti-Inflamma (NSAIDS (NON-STEROIDAL ANTI-INFLAMMA) oxycodone (OXYCODONE) AdvReac Mild DECREASE Verified 08/16/25 19:38 HR AND DECREASE BP Patient History Medical History (Updated 08/16/25 @ 23:46 by Lm Marin MD) Chronic neck pain CVA (cerebral vascular accident) Excessive drinking of alcohol Skin infection Hyperlipidemia Asthma Impaired glucose tolerance Hypertension Acne (vaginal after ) Hypothyroidism (acquired) Depression (~2012) Mood swings (~2012) Fatigue (~2012) Surgical History S/P cervical polypectomy (~05/29/19) History of myomectomy (07/20/10) History of myomectomy (01/23/06) History of right breast biopsy (1989) History of laparoscopic cholecystectomy (1996) History of section (1990) S/P gastric bypass (12/22/09) History of hysterectomy (12/15/11) Family History Father Diabetes mellitus Brain aneurysm [place] (myocardial infarction) Mother Asthma Obesity Grandfather Hypertension Hx of CABG Daughter Asthma Hayfever Daughter Asthma Hayfever Social History marital status: number of children: 2 household members: spouse lives independently: Yes caregiver/support person: No housing: house occupational status: employed seatbelt use: always Smoking Status: Never smoker alcohol intake: current substance use type: does not use Smoking Status: Never smoker alcohol intake frequency: 3 or more drinks per day Alcohol type: beer Exam Narrative Exam Narrative: GENERAL: Well-developed patient, in mild distress. HEAD: Atraumatic. Normocephalic. EYES: Pupils equal round and reactive. Extraocular motions intact. No scleral icterus. No injection or drainage. ENT: No obvious craniofacial trauma. Airway patent. NECK: Trachea midline. Non tender CARDIOVASCULAR: Regular rate and rhythm without murmurs, gallops, or rubs. RESPIRATORY: Clear to auscultation. Breath sounds equal bilaterally. No wheezes, rales, or rhonchi. GASTROINTESTINAL: Abdomen soft, non-tender, nondistended. EXTREMITIES: No edema or joint tenderness. BACK: Nontender without deformity or crepitance. No flank tenderness. NEURO: AOx3. Motor functions grossly nonfocal. SKIN: No rash or erythema of visible areas Initial Vital Signs Initial Vital Signs: Vital Signs Temperature 97.0 F L 08/16/25 19:38 Pulse Rate 109 H 08/16/25 19:38 Respiratory Rate 18 08/16/25 19:38 Blood Pressure 171/96 H 08/16/25 19:38 Pulse Oximetry 97 08/16/25 19:38 Oxygen Delivery Method Room Air 08/16/25 19:38 Course Orders Ordered: ED Orders 08/16/25 19:47 EKG-12 Lead Stat 08/16/25 19:52 Complete Blood Count AUTO DIFF Stat Comprehensive Metabolic Panel Stat ETOH [Ethanol (ETOH)] Stat Lipase Stat Magnesium Stat 08/16/25 22:35 US abdomen limited Stat Discontinued Medications Famotidine (Famotidine 20 Mg/2 Ml Vial) 20 mg IV NOW ALESHA Last Admin: 08/16/25 20:40 Dose: 20 mg Documented By: RON Sodium Chloride (Normal Saline 0.9%) 1,000 mls @ 1,000 mls/hr IV BOLUS ONE Stop: 08/16/25 21:09 Last Infusion: 08/16/25 21:44 Dose: Infused Documented By: Admin: 08/16/25 20:40 Dose: 1,000 mls/hr Documented By: RON Thiamine HCl 100 mg/ Sodium (Chloride) 101 mls @ 404 mls/hr IV NOW ONE Stop: 08/16/25 20:11 Last Infusion: 08/16/25 21:44 Dose: Infused Documented By: Admin: 08/16/25 20:39 Dose: 404 mls/hr Documented By: RON Ondansetron HCl (Ondansetron 4 Mg/2 Ml Inj) 4 mg IV NOW PRN PRN Reason: Nausea And Vomiting Ondansetron HCl (Ondansetron 4 Mg Odt) 4 mg PO NOW PRN PRN Reason: Nausea And Vomiting Ondansetron HCl (Ondansetron 4 Mg/2 Ml Inj) 4 mg IV NOW ONE Stop: 08/16/25 20:11 Last Admin: 08/16/25 20:40 Dose: 4 mg Documented By: RON Ondansetron HCl (Ondansetron 4 Mg Odt Prepack) 1 bottle MISC DIRECTED ONE Stop: 08/16/25 23:47 Last Admin: 08/16/25 23:58 Dose: 1 bottle Documented By: RON Sumatriptan Succinate (Sumatriptan 25 Mg Tablet) 25 mg PO Q2H PRN PRN Reason: Headache Last Admin: 08/16/25 22:44 Dose: 25 mg Documented By: RON Vital Signs Vital signs: Vital Signs - 8 hr 08/16/25 23:57 08/16/25 23:57 08/16/25 23:59 Pulse Rate 92 H Blood Pressure 191/102 H 181/93 H Pulse Oximetry 98 08/16/25 23:59 Pulse Rate 93 H Blood Pressure Pulse Oximetry 98 MDM - Nausea/Vomiting/Diarrhea Lab Data Attestation: I reviewed the patient's lab results. Lab results narrative: White blood cell count 9500, hemoglobin 15.5, platelets adequate. Glucose 121. Normal renal function, serum CO2, potassium. Sodium 133 slight low. Liver functions all mildly elevated, T bili 1.7 noted, alkaline phosphatase 132, AST 110, ALT 85. Lipase 201 normal. Ethanol nonmeasurable. 08/16/25 19:52 08/16/25 19:52 Labs: Lab Results 08/16/25 Range/Units 19:52 WBC 10.5 (4.5-11.0) X10^3/uL RBC 5.02 (4.0-5.2) X10^6/uL Hgb 15.5 (12.0-16.0) g/dL Hct 46.1 H (36-46) % MCV 91.8 (80-100) fL MCH 30.9 (26-34) PG MCHC 33.6 (30-36) % RDW 13.0 (11.6-14.8) % Plt Count 318 (150-400) X10^3/uL Neut % (Auto) 84.7 H (50-75) % Lymph % (Auto) 8.1 L (25-40) % [place] % (Auto) 6.7 (3-14) % Eos % (Auto) 0.1 L (2-4) % Baso % (Auto) 0.4 (0-2) % Neut # (Auto) 8900 H (5287-3202) /uL Lymph # (Auto) 900 L (6665-8798) /uL [place] # (Auto) 700 (0-900) /uL Eos # (Auto) 0 (0-450) /uL Baso # (Auto) 0 (0-100) /uL Sodium 133 L (137-145) mmol/L Potassium 4.0 (3.4-5.1) mmol/L Chloride 96 L (98-107) mmol/L Carbon Dioxide 27 (22-32) mmol/L BUN 16 (7-17) mg/dL Creatinine 0.67 (0.52-1.04) mg/dL Estimated GFR > 60 (>60) mL/min BUN/Creatinine Ratio 23.9 H (6-22) Glucose 121 H (70-99) mg/dL Calcium 8.8 (8.4-10.2) mg/dL Magnesium 1.7 (1.6-2.3) mg/dL Total Bilirubin 1.7 H (0.2-1.3) mg/dL AST 110 H (14-36) IU/L ALT 85 H (<35) IU/L Alkaline Phosphatase 132 H (38-126) U/L Total Protein 8.3 H (6.3-8.2) g/dL Albumin 4.9 (3.5-5.0) g/dL Globulin 3.4 (1.7-4.1) g/dL Albumin/Globulin Ratio 1.4 (1.0-2.8) Lipase 201 (23-300) U/L Ethyl Alcohol < 10 (<10) mg/dL Imaging Data Ultrasound right upper quadrant abdomen: Radiologist's Impression: [address] [address] Ultrasound Report Signed Patient: Radha Valera MR#: [id number] : 1970 Acct:[id number] Age/Sex: 55 / F Date of Service: 08/16/25 Loc: ED Accession Number: [id number] Procedure: US abdomen limited Ordering Provider: Lm Marin MD PROCEDURE: US ABDOMEN LIMITED INDICATIONS: abd pain, inc Tbili TECHNIQUE: Real-time focused scanning was performed of the abdomen, with image documentation. COMPARISON: None. FINDINGS: Liver shows increased echogenicity. Liver measures 15 cm. Gallbladder is absent. CBD measures 6 mm, within normal limits. Partially visualized pancreas is unremarkable. IMPRESSION: No biliary ductal dilation. Gallbladder is absent. Increased hepatic echogenicity is nonspecific, most commonly due to steatosis Dictated by: Jakob Kathleen M.D. on 08/16/2025 at 23:26 Approved by: Jakob Kathleen M.D. on 08/16/2025 at 23:27 [facility] Narrative Medical decision making narrative: 55-year-old female with history of alcohol abuse with last drink yesterday, with recent acute GE like symptoms, patient having similar symptoms, with nonbloody emesis and loose stools. Afebrile, sirs screen negative. Labs pending. IV fluids, Zofran, Pepcid. Lab data: White blood cell count 9500, hemoglobin 15.5, platelets adequate. Glucose 121. Normal renal function, serum CO2, potassium. Sodium 133 slight low. Liver functions all mildly elevated, T bili 1.7 noted, alkaline phosphatase 132, AST 110, ALT 85. Lipase 201 normal. Ethanol nonmeasurable. Mildly increased LFTs, history of ongoing alcohol use. Prior cholecystectomy. We will obtain right upper quadrant ultrasound, check common bile duct. Ultrasound shows no obstructive bile duct pattern. Fatty liver changes noted. See radiology report. Patient able to take oral fluids. Feels improved. Further evaluation as an outpatient for now. Patient agreeable. Discharged home. Return precautions discussed. Discharge Plan Departure Patient Disposition: Home Clinical Impression: Nausea vomiting and diarrhea, History of alcohol use, Abnormal liver function tests, Fatty liver Instructions: DI for Dehydration -- Child, DI for Vomiting -- Adult Activity Restrictions/Additional Instructions: History of alcohol use ongoing. Nonbloody emesis and diarrhea, with your having similar symptoms, suspicious for acute viral gastroenteritis by history. Liver functions were abnormal on labs screening compared to prior comparisons. Prior gallbladder surgery removal noted. Ultrasound of the right upper quadrant showed no dilatation of the common bile ducts, but did show fatty liver changes, which can be associated with alcohol use, no cirrhosis of the liver changes at this time. Encouraged to stop drinking alcohol to help protect the liver and have other important health benefit effects. IV fluids and antinausea medications given. You were able to take oral fluids. Symptoms improved. Home pack of ondansetron oral dissolvable tablet to help control nausea if needed. No diarrheal sample sent to lab during the hours you were treated here in the emergency department. You could consider use of [id number] loperamide/Imodium a can help control diarrheal symptoms, but you had not had any during your stay here in the emergency department, hopefully this component of your illnesses resolving. Drink plenty of fluids that are not displaying water, consider Gatorade/Powerade or other electrolyte containing solutions. Recheck with your symptoms if not improved in the next couple of days. Return to this/nearest emergency department for any change worsening symptoms or any concerns prior. Prescriptions: No Action cyclobenzaprine 5 mg tablet 5 mg PO TID PRN (Reason: muscle spasm) Qty: 20 0RF sumatriptan succinate 25 mg tablet See Rx Instructions PO .COMPLEX Qty: 20 0RF Rx Instructions: take 1 tab at onset of headache; if no relief may repeat 1 tab after at least 2 hrs; max = 4 tabs/24 hr PO albuterol sulfate 90 mcg/actuation aero powdr breath act w/sensor 2 inh inhalation Q4-6H PRN (Reason: shortness of breath or wheezing) Qty: 1 3RF ferrous sulfate 27 mg iron tablet 27 mg PO BID ascorbate calcium (vitamin C) 500 mg tablet 1 g PO Q6H biotin 2,500 mcg capsule 2,500 mcg PO DAILY cholecalciferol (vitamin D3) 50 mcg (2,000 unit) capsule 50 mcg PO DAILY magnesium 250 mg tablet 250 mg PO DAILY multivitamin [Daily Multi-Vitamin] Tablet 1 tab PO DAILY Adult 50 Plus Probiotic 4 billion cell capsule 4,000 mmu cells PO DAILY Rx Instructions: administer with a meal levothyroxine 75 mcg tablet 75 mcg PO DAILY Qty: 90 3RF Alvesco 160 mcg/actuation HFA aerosol inhaler 1 puff inhalation BID Qty: 6.1 0RF estradiol [Katrin] 0.05 mg/24 hr patch semiweekly 1 patch topical 2XW Qty: 24 3RF clonidine HCl 0.2 mg tablet 0.2 mg PO QPM Qty: 90 3RF gabapentin 100 mg capsule 100 mg PO ONCE PM PRN (Reason: for pain) Qty: 60 3RF hydroxyzine HCl 25 mg tablet 25 mg PO TID PRN (Reason: anxiety) Qty: 30 2RF atorvastatin 40 mg tablet 40 mg PO DAILY Qty: 90 3RF lisinopril 20 mg tablet See Rx Instructions .ROUTE .COMPLEX Qty: 90 3RF Dose Instruction: Take 1 tablet (10 mg) by mouth daily Rx Instructions: Take 1 tablet (20 mg) by mouth daily fluoxetine 40 mg capsule See Rx Instructions .ROUTE .COMPLEX Qty: 90 3RF Dose Instruction: Take 1 capsule (40 mg) by mouth one time daily Rx Instructions: Take 1 capsule (40 mg) by mouth one time daily bupropion HCl 300 mg tablet extended release 24 hr 300 mg PO QAM Qty: 30 0RF aspirin 81 mg tablet,delayed release (DR/EC) 81 mg PO DAILY Qty: 30 2RF Referrals: Sudha Gibson MD [Primary Care Provider, Family Practice] Stand Alone Forms: Patient Portal/API
[2025-08-16 20:17] LABS: Alanine Aminotransferase 85 IU/L (<35); Albumin 4.9 g/dL (3.5-5.0); Albumin Globulin Ratio 1.4 (1.0-2.8); Alkaline Phosphatase 132 U/L (38-126); Blood Urea Nitrogen 16 mg/dL (7-17); Calcium 8.8 mg/dL (8.4-10.2); Carbon Dioxide 27 mmol/L (22-32); Chloride 96 mmol/L (98-107); Estimated Glomerular Filt Rate > 60 mL/min (>60); Ethanol (ETOH) < 10 mg/dL (<10); Globulin 3.4 g/dL (1.7-4.1); Glucose 121 mg/dL (70-99); HEMOLYSIS < 15 (0-50); Lipase 201 U/L (23-300); Magnesium 1.7 mg/dL (1.6-2.3); Potassium 4.0 mmol/L (3.4-5.1); Sodium 133 mmol/L (137-145); Total Protein 8.3 g/dL (6.3-8.2)
[2025-08-16] MEDS: THIAMINE 100 MG in SODIUM CHLORIDE 0.9% 100 ML 404 MG IV (20:39)
[2025-08-16] MEDS: ONDANSETRON 4 MG/2 ML INJ IV (20:40)
[2025-08-16] MEDS: FAMOTIDINE 20 MG/2 ML VIAL IV (20:40)
[2025-08-16] MEDS: SODIUM CHLORIDE 0.9% 1,000 ML 1000 ML IV (20:40)
--- NOTE | 2025-08-16 21:45 | PC.NURSE ---
fluids and medication infused, pt states she is starting to have a typical migraine with some more nausea, imitrex usually works for her and she usually takes it by pill
--- NOTE | 2025-08-16 22:35 | DI.US.S_ITS ---
PROCEDURE: US ABDOMEN LIMITED
--- NOTE | 2025-08-16 22:48 | PC.NURSE ---
pt medicated for migraine and updated on plan of care
[2025-08-16 23:57] VITALS: BP 191/102; PULSE 92; O2SAT 98
[2025-08-16] MEDS: ONDANSETRON 4 MG ODT PREPACK 1 BOTTLE MISC (23:58)
[2025-08-16 23:59] VITALS: BP 181/93; PULSE 93; O2SAT 98
--- NOTE | 2025-08-17 08:16 | PC.NURSE ---
Patient called in requesting work note. Note created and placed in envelope sent to Sara at patient request.
== END 2025-08-17 00:07 | disposition home or self-care (01) ==
PROVIDERS: Emergency Provider Emergency Medicine; PCP Family Medicine
DX: R11.2 Nausea with vomiting, unspecified (principal); R19.7 Diarrhea, unspecified; R79.89 Other specified abnormal findings of blood chemistry; K76.0 Fatty (change of) liver, not elsewhere classified; F10.90 Alcohol use, unspecified, uncomplicated
CPT/HCPCS: 36415; 76705; 80053; 80320; 83690; 83735; 85025; 96365; 96375; 99284; J2405; J7030; J7050

== ENCOUNTER → 2025-10-12 11:37 | Outpatient (CLI) | payer OTHER, SELFPAY ==
[2023-09-05 13:03] VITALS: BMI 29.2
[2025-10-12 13:25] LABS: Influenza A - CEPHEID Flu A NEGATIVE (NEGATIVE); Influenza B - CEPHEID Flu B NEGATIVE (NEGATIVE)
[2025-10-12 13:26] LABS: COVID-19 CEPHEID 4-PLEX PCR Negative (Negative)
== END ==
PROVIDERS: PCP Family Medicine; Visit Provider Nurse Practitioner Family
DX: R05.1 Acute cough (principal)
CPT/HCPCS: 87637